=== PATIENT | male | born 1950 | race Caucasian/White ===

== ENCOUNTER 2017-07-02 12:56 | Emergency (ER) | payer MEDICARE, MEDICAID | END 2017-07-02 14:33 | disposition home or self-care (01) | LOC: ERS 12:56 | DX: K40.20 Bilateral inguinal hernia, without obstruction or gangrene, not specified as recurrent (principal); I10 Essential (primary) hypertension; J44.9 Chronic obstructive pulmonary disease, unspecified; F17.210 Nicotine dependence, cigarettes, uncomplicated; Z79.899 Other long term (current) drug therapy | CPT/HCPCS: 99283 ==

== ENCOUNTER 2017-07-13 07:36 | Day surgery (SDC) | payer MEDICARE, MEDICAID ==
[2017-07-12 09:40] VITALS: BMI 19.3
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
[2017-07-13] MEDS ORDERED: Bupivacaine PF 0.5% 30 ML VIAL ONE (07:50)
[2017-07-13] MEDS ORDERED: Lidocaine 2% w/Epinephrine 1:200K 20 ML VIAL ONE (08:13)
[2017-07-13 08:31] LABS: #Basophils 0.1 thou/uL (0.0-0.2); #Eosinphils 0.5 thou/uL (0.0-0.7); #Lymphocytes 2.3 thou/uL (1.20-3.40); #Monocytes 1.1 thou/uL (0.11-0.59); #Neutrophils 4.3 thou/uL (1.40-6.50); %Basophils 0.9 % (0.0-1.0); %Eosinophils 5.9 % (0.0-10.0); %Lymphocytes 28.1 % (21.0-51.0); Hematocrit 45.3 % (42.0-52.0); Red Blood Cell (RBC) Count 4.63 mill/uL (4.70-6.10); White Blood Cell (WBC) Count 8.3 thou/uL (4.8-10.8)
[2017-07-13] MEDS ORDERED: Ketorolac Tromethamine 30 MG/ML VIAL ONE (08:35)
[2017-07-13 08:48] LABS: Anion Gap 9 mmol/L (10-20); BUN (Urea Nitrogen) 14 mg/dL (8.4-25.7); Calc. Creatinine Clearance 54 mL/min (70-130); Calcium 9.2 mg/dL (7.8-10.44); Carbon Dioxide 28 mmol/L (23-31); Chloride 106 mmol/L (98-107); Estimated GFR-MDRD 72
[2017-07-13] MEDS ORDERED: Fentanyl 100 MCG/2 ML VIAL ONE (09:17)
[2017-07-13] MEDS ORDERED: ePHEDrine/0.9% NaCl/PF SYRINGE 50 mg/10 ml ONE (09:51)
[2017-07-13] MEDS ORDERED: Propofol 200 MG/20 ML VIAL ONE (09:51)
[2017-07-13] MEDS ORDERED: Dexamethasone 20 MG/5 ML VIAL ONE (09:51)
[2017-07-13] MEDS ORDERED: Ondansetron HCl/PF 4 MG/2 ML Vial ONE (09:51)
--- NOTE | 2017-07-13 11:13 | OP ---
DATE OF OPERATION: 07/13/2017 PREOPERATIVE DIAGNOSIS: Right inguinal hernia, direct. POSTOPERATIVE DIAGNOSIS: Right inguinal hernia, direct. PROCEDURE: Right inguinal hernia repair with PHS mesh. ANESTHESIA: General. Local 0.5% Marcaine 30 mL, 2% Xylocaine with epinephrine, 30 mL. SURGEON: Dr. Magnus Scruggs PROCEDURE IN DETAIL: The patient was taken to the operating room where under general anesthesia, ab domen was clipped of hair, prepared with ChloraPrep, draped in routine fashion. Ioban was used. Lo becki anesthetic infiltrated into skin and subcutaneous tissue for ilioinguinal nerve block along the line of incision in the right groin, carried down through the skin and subcutaneous tissue. Externa l oblique incised in the direction of its fibers. External ring cord structures dissected free and surrounded with Chris drain. Cremasteric fibers taken down and indirect hernia sac was not presen t. A direct inguinal hernia noted. The attenuated fascia was circumscribed, opened preperitoneal s pace potentiated and underlay portion of the PHS extended mesh placed in the preperitoneal space ope jimi and onlay portion placed in the floor of canal placing the extended portion superiorly in the in guinal canal, a slit was made in the mesh laterally to the cylindrical connecting ring brought aroun d the cord structures creating a synthetic internal ring reapproximating the mesh laterally to Poupa rt's ligament with 0 Nurolon suture inferiorly, mesh approximated to Sharad's ligament with 0 Nurolo n suture. Good hemostasis noted. The Chris drain was removed and good hernia repair appreciated. External oblique closed with continuous suture of 3-0 Monocryl, Camper's fascia with 3-0 Monocryl, skin with subcutaneous suture of 4-0 Monocryl. Local anesthetic infiltrated in the space of the in guinal canal and space above and below Camper's fascia, infiltrated in the skin and subcutaneous tis avtar for postoperative pain control. DermaGlue applied. The patient tolerated the procedure well.
--- NOTE | 2017-07-16 15:57 | EKG ---
Test Reason : PREOP Blood Pressure : / mmHG Vent. Rate : 067 BPM Atrial Rate : 067 BPM P-R Int : 138 ms QRS Dur : 088 ms QT Int : 402 ms P-R-T Axes : 070 079 072 degrees QTc Int : 424 ms Normal sinus rhythm Normal ECG Confirmed by MICHELE NUÑEZ ([id number]) on 07/16/2017 3:57:05 PM Referred By: DANII Confirmed By:MICHELE NUÑEZ
== END 2017-07-13 12:25 | disposition home or self-care (01) ==
LOC: SDC 07:36
PROVIDERS: ATTEND Specialist
PROC: 0YU50JZ Supplement Right Inguinal Region with Synthetic Substitute, Open Approach (ICD-10-PCS; principal; 2017-07-13)
DX: K40.90 Unilateral inguinal hernia, without obstruction or gangrene, not specified as recurrent (principal); J44.9 Chronic obstructive pulmonary disease, unspecified; I10 Essential (primary) hypertension; F17.210 Nicotine dependence, cigarettes, uncomplicated; Z79.899 Other long term (current) drug therapy; Z90.5 Acquired absence of kidney
CPT/HCPCS: 49505; 80048; 85025; 93005; C1781; 36415; 93010; J0131; J1100; J1885; J2405; J2704; J3010; S0020

== ENCOUNTER 2017-10-31 13:18 | Outpatient (CLI) | payer MEDICARE, MEDICAID ==
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
== END 2017-10-31 13:19 | disposition home or self-care (01) ==
LOC: CT 13:18
PROVIDERS: ATTEND Internal Medicine
DX: R91.1 Solitary pulmonary nodule (principal)
CPT/HCPCS: 71250

== ENCOUNTER 2017-12-09 18:34 | Emergency (ER) | payer MEDICARE, MEDICAID | END 2017-12-09 21:43 | disposition home or self-care (01) | LOC: ERS 18:34 | DX: J44.1 Chronic obstructive pulmonary disease with (acute) exacerbation (principal); I10 Essential (primary) hypertension; F17.210 Nicotine dependence, cigarettes, uncomplicated; Z79.899 Other long term (current) drug therapy | CPT/HCPCS: 94640; 94760; J7620 ==

== ENCOUNTER 2017-12-27 08:30 | Inpatient (IN) | payer MEDICARE, MEDICAID ==
[2017-12-27] MEDS ORDERED: Acetaminophen 325 MG TAB PO PRN (09:36)
[2017-12-27] MEDS ORDERED: Bisacodyl 5 MG TAB PO PRN (09:36)
[2017-12-27] MEDS ORDERED: Acetaminophen 650 MG Suppository PR PRN (09:36)
[2017-12-27] MEDS ORDERED: cefTRIAXone\\ROCEPHIN 2 GM VIAL ONE (09:54)
[2017-12-27] MEDS ORDERED: Azithromycin 250 MG TAB ONE (09:55)
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
[2017-12-27] MEDS: Azithromycin 500 MG in Sodium Chloride 0.9% 250 ML 250 ML IVPB SCH (15:19)
[2017-12-27 15:25] VITALS: BMI 18.3
[2017-12-27] MEDS ORDERED: hydrALAZINE 20 MG/ML VIAL SLOW IVP PRN (15:50)
[2017-12-27] MEDS: Nicotine 14 MG PATCH TD SCH (21:06)
[2017-12-28 04:20] LABS: #Lymphocytes 0.9 thou/uL (1.20-3.40); #Monocytes 0.2 thou/uL (0.11-0.59); #Neutrophils 14.2 thou/uL (1.40-6.50); %Eosinophils 0.2 % (0.0-10.0); %Lymphocytes 6.1 % (21.0-51.0); %Monocytes 1.4 % (0.0-10.0); %Neutrophils 92.4 % (42.0-75.0); Hemoglobin 13.6 g/dL (14.0-18.0); Mean Corpuscular HGB CONC 33.2 g/dL (32.0-36.0); Mean Corpuscular Hemoglobin 32.1 pg (27.0-31.0); Mean Corpuscular Volume 96.7 fl (80.0-94.0); Mean Platelet Volume 8.2 fL (7.4-10.4); Platelet Count 332 thou/uL (130-400); Red Blood Cell (RBC) Count 4.22 mill/uL (4.70-6.10); White Blood Cell (WBC) Count 15.4 thou/uL (4.8-10.8)
[2017-12-28 04:23] LABS: Lactic Acid 2.1 mmol/L (0.5-2.2)
[2017-12-28 04:28] LABS: Anion Gap 13 mmol/L (10-20); BUN (Urea Nitrogen) 19 mg/dL (8.4-25.7); Calc. Creatinine Clearance 61 mL/min (70-130); Calcium 9.2 mg/dL (7.8-10.44); Carbon Dioxide 24 mmol/L (23-31); Chloride 106 mmol/L (98-107); Estimated GFR-MDRD 88; Glucose 158 mg/dL (80-115); Potassium 4.5 mmol/L (3.5-5.1); Sodium 138 mmol/L (136-145)
[2017-12-28] MEDS: Enoxaparin Sodium 40 MG/0.4 ML SYRINGE SC SCH (08:56)
[2017-12-28] MEDS: Aspirin 81 mg Enteric Coated Tablet PO SCH (08:56)
[2017-12-28] MEDS: Nicotine 14 MG PATCH TD SCH (08:57)
[2017-12-28] MEDS: Lisinopril 10 MG TAB PO SCH (08:58)
[2017-12-28] MEDS: Azithromycin 500 MG in Sodium Chloride 0.9% 250 ML 250 ML IVPB SCH (08:58)
[2017-12-28] MEDS ORDERED: Non-Formulary Item 1 EACH (Umeclidinium/Vilanterol [Anoro Ellipta 62.5/25 Mcg Inh] 1 PUFF INH SCH (09:00)
[2017-12-28] MEDS ORDERED: cefTRIAXone\\ROCEPHIN 1 GM in Sterile Water 10 ML SLOW IVP SCH (09:00)
--- NOTE | 2017-12-28 14:30 | PQF ---
CLINICAL DOCUMENTATION IMPROVEMENT CLARIFICATION FORM: ICD-10 Updated PLEASE DO AN ADDENDUM TO THE PROGRESS NOTE WITH ANY DOCUMENTATION UPDATES OR ADDITIONS AND CARRY THROUGH TO DC SUMMARY. THANK YOU. DATE: 12/28/17 ATTN : DR. SMITH Please exercise your independent, professional judgment in responding to the clarification form. Clinical indicators are provided on the bottom of this form for your review Please check appropriate box(es): [ ] Sepsis due to: (Pna, UTI, gangrenous gall bladder, etc.) Due to: [ ] Device (please specify) [ ] Implant [ ] Graft [ ] Infusion [ ] SIRS due to non-infectious process (please specify etiology) [ ] with organ dysfunction [ ] without organ dysfunction [ ] Severe sepsis with acute organ dysfunction of: (Examples: respiratory failure, encephalopathy, acute kidney failure, other) [ ] Septic Shock [ ] Localized infection without sepsis [ x ] Other diagnosis [ ] Unable to determine In addition, please specify: Present on Admission (POA): [ x ] Yes [ ] No [ ] Unable to determine For continuity of documentation, please document condition throughout progress notes and discharge summary. Thank You. CLINICAL INDICATORS - SIGNS / SYMPTOMS / LABS ER NOTE: "SEPSIS" WBC 15.4 PULSE 98 RR 23 RISKS: COPD TREATMENT: IV AZITHROMYCIN (ER-PRESENT) IV ROCEPHIN (ER-PRESENT) IV FLUIDS (ER) (This form is maintained as a part of the permanent medical record) 2014 [employer]. All Rights Reserved LORAINE [email or web address] Office: [phone] [facility]
[2017-12-28] MEDS ORDERED: Furosemide 20 MG/2 ML VIAL SLOW IVP SCH (15:00)
--- NOTE | 2017-12-28 15:04 | PDOC.PN ---
- Subjective Encounter Start Date: 12/28/17 Encounter Start Time: 14:45 Subjective: f/u acute hypoxic resp failure and COPD exacerbation on Omnicef, -: Zithromax and Prednisone. Feels better overall. Off O2 supplementation. - Objective Resuscitation Status: Resuscitation Status FULL:Full Resuscitation MAR Reviewed: Yes Vital Signs & Weight: Vital Signs (12 hours) Temp Pulse Resp BP BP BP BP 12/28/17 12:00 156/85 H 12/28/17 11:54 97.6 F 73 16 156/85 H 12/28/17 08:58 152/78 H 12/28/17 08:00 97.9 F 93 16 152/78 H 12/28/17 07:21 97.9 F 93 16 152/78 H 12/28/17 06:33 12/28/17 06:32 74 20 12/28/17 04:00 97.6 F 81 18 138/73 138/73 Pulse Ox 12/28/17 12:00 12/28/17 11:54 96 12/28/17 08:58 12/28/17 08:00 95 12/28/17 07:21 95 12/28/17 06:33 97 12/28/17 06:32 97 12/28/17 04:00 93 L Weight Admit Weight 113 lb 9.6 oz Weight 113 lb 9.6 oz I&O: 12/27/17 12/28/17 12/29/17 06:59 06:59 06:59 Intake Total 240 Balance 240 Result Diagrams: 12/28/17 03:31 12/28/17 03:31 Radiology Reviewed by me: Yes (PCXR - no acute process) Phys Exam - Physical Examination Constitutional: NAD HEENT: PERRLA, oral pharynx no lesions Neck: no JVD, supple coarse sounds bilat, exp wheezes Cardiovascular: RRR Gastrointestinal: soft, non-tender, no distention, positive bowel sounds Musculoskeletal: no edema, pulses present Neurological: normal sensation, moves all 4 limbs Psychiatric: A&O x 3 Skin: normal turgor, cap refill <2 seconds Dx/Plan (1) Acute respiratory failure with hypoxia Code(s): J96.01 - ACUTE RESPIRATORY FAILURE WITH HYPOXIA Status: Acute Comment: Continue pulmonary support with Duonebs, Prednisone and Omnicef, O2 prn (2) COPD exacerbation Code(s): J44.1 - CHRONIC OBSTRUCTIVE PULMONARY DISEASE W (ACUTE) EXACERBATION Status: Acute Comment: Improved with pulmonary support, Prednisone, Duonebs, Omnicef, tobacco cessation (3) Tobacco abuse Code(s): Z72.0 - TOBACCO USE Status: Chronic Comment: tobacco cessation resources (4) HTN (hypertension) Code(s): I10 - ESSENTIAL (PRIMARY) HYPERTENSION Status: Chronic Qualifiers: Hypertension type: essential hypertension Qualified Code(s): I10 - Essential (primary) hypertension Comment: Continue Lasix and Lisinopril, serial BP monitoring - Plan continue antibiotics, social media marketing analyst, respiratory therapy, out of bed/ambulate , DVT proph w/SCDs Stable overall -: Continue pulmonary support -: Tobacco cessation -: Continue Omnicef, Prednisone, Duonebs -: Likely home in am 12/29/17 * .
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
[2017-12-28] MEDS: Cefdinir 300 MG CAP PO SCH (20:37)
[2017-12-29] MEDS ORDERED: predniSONE 20 MG TAB PO SCH (08:00)
[2017-12-29] MEDS ORDERED: Furosemide 20 MG TAB PO SCH (09:00)
[2017-12-29] MEDS ORDERED: Azithromycin 250 MG TAB PO SCH (09:00)
[2017-12-29] MEDS: Aspirin 81 mg Enteric Coated Tablet PO SCH (09:52)
[2017-12-29] MEDS: Cefdinir 300 MG CAP PO SCH (09:52)
[2017-12-29] MEDS: Enoxaparin Sodium 40 MG/0.4 ML SYRINGE SC SCH (09:52)
[2017-12-29] MEDS: Lisinopril 10 MG TAB PO SCH (09:53)
[2017-12-29] MEDS: Nicotine 14 MG PATCH TD SCH (09:54)
[2017-12-29 11:18] VITALS: BP 153/83; TEMP 97.3
--- NOTE | 2017-12-29 14:14 | PRG ---
DATE OF SERVICE: 12/29/2017 SUBJECTIVE: This morning, he is better and he is ready to go home. OBJECTIVE: VITAL SIGNS: Blood pressure 159/69, sats are 98% on room air, temperature 98 and respirations 18. CHEST: Decreased breath sounds. No wheezing. CARDIAC: Normal S1 and S2. No gallops. ABDOMEN: Soft. No masses. IMPRESSION: Chronic obstructive pulmonary disease exacerbation and bronchitis. PLAN: He can be discharge home. He can follow up with Dr. Moon on an outpatient basis.
--- NOTE | 2017-12-29 15:10 | DIS ---
DATE OF ADMISSION: 12/27/2017 DATE OF DISCHARGE: 12/29/2017 ADMITTING DIAGNOSIS: Acute on chronic hypoxic respiratory failure. DISCHARGE DIAGNOSIS: Acute on chronic hypoxic respiratory failure. SECONDARY DIAGNOSES: 1. Acute on chronic obstructive pulmonary disease exacerbation. 2. Hypertension. 3. History of active smoker and tobacco use. CONSULTANTS: Pool Coordinator involved in the care is Dr. Moon. HISTORY OF PRESENT ILLNESS AND HOSPITAL COURSE: In brief, this is a 67-year-old white male with know n history of COPD and has been a chronic smoker, who was brought to the ER from [place] because of the worsening shortness of breath, not associated with orthopnea and no chest pain. He is having some productive yellow sputum with occasional streaks of blood. So, he was started on a BiPAP and Pu lmonary was consulted. The patient was started on high dose of Solu-Medrol at 125 mg and also starte d on oral antibiotics with Rocephin and azithromycin. The patient showed good improvement with the s teroids and antibiotics. He was transferred to the floor and was slowly improving. The patient was counseled to quit smoking, which has triggered this COPD attack. The patient showed good improvement with the nebulizer treatments, he just uses an inhaler at home. So, the patient is discharged in st able condition once his wheezing was resolved. The patient was seen by Dr. Bautista on the day of discha [facility] and suggested to follow up with him in 2 to 3 weeks. The patient was discharged home in stable c ondition. PHYSICAL EXAMINATION: On the day of discharge: VITAL SIGNS: Blood pressures are 153/83, heart rate 73, respirations 14, saturation 98% on room air. GENERAL: The patient is moderately built, moderately nourished, does not appear to be in any acute d istress. CARDIOVASCULAR: S1, S2 normal. No murmurs, rubs or gallops. LUNGS: Bilateral air entry was equal. No wheezing, no crackles. ABDOMEN: Soft, nontender, no guarding, no rebound tenderness. MUSCULOSKELETAL: No calf tenderness. No pedal edema, no joint tenderness, no joint swelling. DISCHARGE MEDICATIONS: HOME MEDICATIONS: 1. Albuterol inhaler 1 puff inhalation as needed. 2. Fluticasone 1 puff inhalation daily 200 mcg inhaler. 3. Aspirin 81 mg daily. 4. Lisinopril 10 mg daily. 5. Ellipta 62.5/25 mcg inhalation 1 puff inhalation daily. NEW MEDICATIONS: 1. Azithromycin 250 mg p.o. daily, continue for 4 more days. 2. Omnicef 300 mg p.o. daily, continue for 4 more days. 3. DuoNebs nebulizer was given, advised to use every 6 hours. 4. Prednisone 20 mg tapering dose was given for 8 days. DISCHARGE INSTRUCTIONS: 1. Continue activity as tolerated. Advised to quit smoking. 2. Diet: Continue with general heart-healthy diet. 3. Activity: As tolerated. 4. Followup: Advised to follow up with Dr. Bautista in 2 to 3 weeks. I spent 35 minutes with this patient.
== END 2017-12-29 11:18 | disposition home or self-care (01) | DRG 189 ==
LOC: ERS 08:30 → T4-B 09:34
PROVIDERS: ADMIT Internal Medicine; ATTEND Internal Medicine
DX: J96.21 Acute and chronic respiratory failure with hypoxia (principal); E87.2 Acidosis; J44.1 Chronic obstructive pulmonary disease with (acute) exacerbation; I10 Essential (primary) hypertension; F17.210 Nicotine dependence, cigarettes, uncomplicated; I16.0 Hypertensive urgency
CPT/HCPCS: 36415; 80048; 83605; 85025; 94640; 96365; 96366; 96367; A4216; J0360; J0456; J0696; J1650; J1940; J2920; J7050; J7506; J7620

== ENCOUNTER 2018-07-08 20:45 | Observation (INO) | payer MEDICARE, MEDICAID ==
[2018-07-08] MEDS ORDERED: Piperacillin/Tazobactam 3.375 GM VIAL ONE (21:19)
[2018-07-08] MEDS ORDERED: Ondansetron HCl/PF 4 MG/2 ML Vial IVP PRN (22:29)
[2018-07-08] MEDS ORDERED: Ondansetron ODT 4 MG TAB SL PRN (22:29)
[2018-07-08] MEDS: Lactated Ringer's 1,000 ML IV SCH (23:50)
[2018-07-09] MEDS: Piperacillin/Tazobactam 3.375 GM in Sodium Chloride 0.9% 100 ML IVPB SCH ×2 (04:00→08:57)
[2018-07-09] MEDS: Lactated Ringer's 1,000 ML IV SCH (08:57)
[2018-07-09] MEDS ORDERED: hydrALAZINE 20 MG/ML VIAL SLOW IVP PRN (09:52)
[2018-07-09] MEDS ORDERED: Ondansetron ODT 8 MG TAB SL PRN (09:54)
[2018-07-09] MEDS ORDERED: Acetaminophen 1,000 MG in Premix Bag 1 BAG IVPB PRN (09:54)
[2018-07-09] MEDS ORDERED: Ondansetron HCl/PF 4 MG/2 ML Vial IVP PRN ×2 (09:54→13:37)
[2018-07-09] MEDS ORDERED: Ketorolac Tromethamine 30 MG/ML VIAL IVP PRN (09:54)
[2018-07-09] MEDS ORDERED: Lactated Ringer's 1,000 ML IV SCH (10:00)
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
[2018-07-09] MEDS ORDERED: Fentanyl 100 MCG/2 ML VIAL ONE (11:16)
[2018-07-09] MEDS ORDERED: Bupivacaine HCl 0.5%/Epinephrine 1:200,000/PF 30 ml Vial ONE (11:42)
[2018-07-09] MEDS ORDERED: traMADol HCl 50 MG TAB PO PRN ×2 (13:15)
[2018-07-09] MEDS ORDERED: Acetaminophen 500 MG TAB PO PRN (13:15)
[2018-07-09] MEDS ORDERED: Promethazine HCl 25 MG/ML VIAL IM PRN (13:37)
[2018-07-09] MEDS ORDERED: Promethazine HCl 25 MG/ML VIAL SLOW IVP PRN (13:37)
[2018-07-09 14:26] VITALS: BP 133/75; TEMP 97.6
[2018-07-09] MEDS ORDERED: Piperacillin/Tazobactam 3.375 GM in Sodium Chloride 0.9% 100 ML IVPB SCH (15:00)
[2018-07-09] MEDS ORDERED: Dexamethasone 20 MG/5 ML VIAL ONE (16:27)
[2018-07-09] MEDS ORDERED: Lidocaine 1% PF 5 ML VIAL ONE (16:27)
[2018-07-09] MEDS ORDERED: Ketorolac Tromethamine 30 MG/ML VIAL ONE (16:27)
[2018-07-09] MEDS ORDERED: Succinylcholine Chloride 20 MG/ML 10 ml SYRINGE FS ONE (16:27)
[2018-07-09] MEDS ORDERED: Ondansetron HCl/PF 4 MG/2 ML Vial ONE (16:27)
[2018-07-09] MEDS ORDERED: PROPOFOL 200 MG/20 ML VIAL ONE (16:27)
--- NOTE | 2018-07-09 18:55 | OP ---
DATE OF PROCEDURE: 07/09/2018 PREOPERATIVE DIAGNOSIS: Acute appendicitis. POSTOPERATIVE DIAGNOSIS: Acute appendicitis. PROCEDURE: Laparoscopic video appendectomy. SURGEON: Magnus Scruggs M.D. ANESTHESIA: General. Local 0.5% Marcaine with epinephrine. Adhesions from prior surgery. PROCEDURE: The patient was taken to the operating room where under general anesthesia, abdomen was p repared with ChloraPrep, draped in routine fashion. Local anesthetic infiltrated into the skin and s ubcutaneous tissue about each port site. Right lateral subcostal incision made and pneumoperitoneum to 15 mmHg obtained with the Veress needle and using a laparoscope view port, I inserted 5 mm port, b ut was uncertain about this location. Thus, the left lateral subcostal incision made and a 5-port pl aced. I was able to enter the abdominal cavity and viewed this laparoscopically. Suprapubic area wa s free of adhesions. Thus, an incision was made and a 12-port placed. The right subcostal port was directed more caudally and I was able to enter abdominal cavity through an adhesion free area. Appen koko was identified and inflamed. Mesoappendix taken down with the LigaSure. Stump of the appendix d ivided with Endo-MILES blue load stapler. The stapled cecal stump was hemostatic and secure as the yan endix removed and submitted to Pathology. Good hemostasis assured. Irrigant and pneumoperitoneum ev acuated. All instruments removed, and all skin incisions approximated with subdermal 4-0 Monocryl an d DermaGlue applied. Suprapubic fascia approximated with 0 Vicryl.
[2018-07-09] MEDS ORDERED: Enoxaparin Sodium 40 MG/0.4 ML SYRINGE SC SCH (21:00)
--- NOTE | 2018-07-09 23:09 | DIS ---
DATE OF ADMISSION: 07/08/2018 DATE OF DISCHARGE: 07/09/2018 DISCHARGE DIAGNOSES: 1. Acute appendicitis. 2. Cholelithiasis, asymptomatic. 3. Left subclavian artery stenosis with claudication. 4. Chronic obstructive pulmonary disease. 5. Ongoing tobacco abuse. 6. Hypertension. PROCEDURES: Laparoscopic video appendectomy. No adhesions present from prior surgery, but able to a pproach adhesion free area. Right subcostal area has more adhesions than the left. HISTORY: A 68-year-old male with history of appendicitis, confirmed by CAT scan. Discussion held re garding his gallstones that had been present for several years, seen on previous CAT scans and these are asymptomatic and these were left alone. He received intravenous fluids and antibiotics, underwen t laparoscopic video appendectomy and discharged home. Ultram p.r.n. pain. Resume home medications. Diet and activity as tolerated. Follow up in my office in 2-3 weeks. PLAN: Referral to [facility] Surgery for consideration for intervention due to his left subclavian artery st enosis. He has nonpalpable pulses .
== END 2018-07-09 16:40 | disposition home or self-care (01) ==
LOC: ERS 20:45 → SURG B 21:15
PROVIDERS: ADMIT Specialist; ATTEND Specialist
PROC: 0DTJ4ZZ Resection of Appendix, Percutaneous Endoscopic Approach (ICD-10-PCS; principal; 2018-07-08)
DX: K35.80 Unspecified acute appendicitis (principal); K80.20 Calculus of gallbladder without cholecystitis without obstruction; I70.8 Atherosclerosis of other arteries; I70.218 Atherosclerosis of native arteries of extremities with intermittent claudication, other extremity; I10 Essential (primary) hypertension; J44.9 Chronic obstructive pulmonary disease, unspecified; F17.210 Nicotine dependence, cigarettes, uncomplicated; Z79.82 Long term (current) use of aspirin; Z79.899 Other long term (current) drug therapy; Z90.49 Acquired absence of other specified parts of digestive tract; Z90.5 Acquired absence of kidney
CPT/HCPCS: 44970; 88304; 96361; 96365; 96366; 97139; 99285; G0378; J0670; J1100; J1885; J2001; J2405; J2543; J2704; J3010; J7050

== ENCOUNTER 2018-12-24 13:00 | Outpatient (CLI) | payer MEDICARE, MEDICAID ==
--- NOTE | 2018-12-24 14:37 | ULT ---
ULTRASOUND TESTICULAR WITH DOPPLER: HISTORY: Hydrocele. COMPARISON: None. FINDINGS: Real-time, ward scale, and color evaluation of the testicles was performed. Testicular echotexture is normal bilaterally. Small right-side testicular cyst. Adequate vascular f low to both testicles. Large right hydrocele. The right testicle measures 3.1 x 4.5 x 3.2 cm and the left testicle measures 3.9 x 3 x 2.1 cm. IMPRESSION: Large right hydrocele. No underlying mass. POS: C
== END 2018-12-24 13:01 | disposition home or self-care (01) ==
LOC: BICULT 13:00
PROVIDERS: ATTEND Specialist
DX: N43.3 Hydrocele, unspecified (principal)
CPT/HCPCS: 76870; 93976

== ENCOUNTER 2019-05-07 10:45 | Outpatient (CLI) | payer MEDICARE, MEDICAID ==
--- NOTE | 2019-05-07 11:41 | RAD ---
TWO VIEW CHEST: HISTORY: Dyspnea. COMPARISON: 02/26/2017. FINDINGS: Mild hyperexpansion with flattened diaphragms. Lung santnaa are clear. Vascular markings normal. He art and mediastinum unremarkable. Osseous structures unremarkable. IMPRESSION: Mild hyperexpansion. No acute process. POS: [facility]
== END 2019-05-07 10:46 | disposition home or self-care (01) ==
LOC: RAD 10:45
PROVIDERS: ATTEND Internal Medicine
DX: R06.00 Dyspnea, unspecified (principal); R91.8 Other nonspecific abnormal finding of lung field
CPT/HCPCS: 71046

== ENCOUNTER 2019-05-21 06:39 | Outpatient (CLI) | payer MEDICARE, MEDICAID ==
[2019-05-21 10:44] LABS: Bacteria/HPF None Seen HPF (None Seen); Bilirubin Negative (Negative); Blood, Urine Negative (Negative); Clarity Clear (Clear); Glucose, Urine (Dipstick) Normal (Negative); Leukocyte Negative Leu/uL (Negative); Mucous/LPF Rare LPF (<2+); Nitrite Negative (Negative); Protein, Urine (Dipstick) 20 mg/dL (Neg-Trace); RBC/HPF 0-3 HPF (0-3); Squamous Epithelial None Seen HPF (0-3); Urobilinogen Normal mg/dL (Less than 2); WBC/HPF 0-3 HPF (0-3)
[2019-05-21 10:46] LABS: Hemoglobin 14.8 g/dL (14.0-18.0); Mean Corpuscular HGB CONC 33.9 g/dL (32.0-36.0); Mean Corpuscular Hemoglobin 32.8 pg (27.0-31.0); Mean Corpuscular Volume 96.7 fL (78.0-98.0); Mean Platelet Volume 8.2 fL (7.4-10.4); Platelet Count 293 thou/uL (130-400); RBC Distribution Width 13.7 % (11.5-14.5); Red Blood Cell (RBC) Count 4.53 mill/uL (4.70-6.10); White Blood Cell (WBC) Count 8.2 thou/uL (4.8-10.8)
[2019-05-21 11:09] LABS: Anion Gap 14 mmol/L (10-20); BUN (Urea Nitrogen) 14 mg/dL (8.4-25.7); Calc. Creatinine Clearance 0 mL/min (70-130); Calcium 9.6 mg/dL (7.8-10.44); Carbon Dioxide 27 mmol/L (23-31); Chloride 103 mmol/L (98-107); Estimated GFR-MDRD 69; Glucose 88 mg/dL (80-115); Potassium 5.1 mmol/L (3.5-5.1); Sodium 139 mmol/L (136-145)
[2019-05-21 11:14] LABS: INR-International Normal Ratio 0.9
[2019-05-21 11:15] LABS: PTT 26.7 SEC (22.9-36.1)
== END 2019-05-21 06:40 | disposition home or self-care (01) ==
LOC: LABBT 06:39
PROVIDERS: ATTEND Urology
DX: Z01.818 Encounter for other preprocedural examination (principal); N43.3 Hydrocele, unspecified; J44.9 Chronic obstructive pulmonary disease, unspecified
CPT/HCPCS: 80048; 81001; 85027; 85610; 85730; 87086; 93005; 93010

== ENCOUNTER 2019-05-29 13:10 | Day surgery (SDC) | payer MEDICAID, MEDICARE ==
[2019-05-21 09:46] VITALS: BMI 18.6
[~2019-05-29 13:10] MED LIST: Dexamethasone 20 MG/5 ML VIAL ONE; Glycopyrrolate 0.2 MG/ML 5 ML SYRINGE ONE; Lidocaine 1% PF 5 ML VIAL ONE; Ondansetron PF 4 MG/2 ML Vial ONE; PHENYLEPHRINE-NS 100 MCG/ML 10 ML SYRINGE ONE; PROPOFOL 200 MG/20 ML VIAL ONE; PROVENTIL INHALER 6.7 G (200 INHALATIONS) ONE; ePHEDrine 50 MG/ML VIAL ONE
[2019-05-29] MEDS ORDERED: Fentanyl 100 MCG/2 ML VIAL ONE (13:52)
[2019-05-29] MEDS ORDERED: Bupivacaine/Epinephrine 0.25% 30 ML VIAL ONE (13:55)
[2019-05-29] MEDS ORDERED: Midazolam HCl 2 mg/2 ml Vial ONE (14:01)
[2019-05-29] MEDS ORDERED: Sodium Chloride 0.9% 100 ML ONE (14:07)
[2019-05-29] MEDS ORDERED: CEFAZOLIN 1 GM VIAL ONE (14:07)
[2019-05-29] MEDS ORDERED: Bupivacaine 0.25% HCL 30 ML VIAL ONE (14:25)
--- NOTE | 2019-05-29 21:58 | OP ---
DATE OF PROCEDURE: 05/29/2019 SERVICE: Urology. PREOPERATIVE DIAGNOSIS: Right hydrocele. POSTOPERATIVE DIAGNOSIS: Right hydrocele. PROCEDURE PERFORMED: Right hydrocelectomy in a Jaboulay fashion. INDICATIONS FOR PROCEDURE: Mr. Jacobsen is a 69-year-old white male with COPD and a right hydrocele which is symptomatic, painful, and bothersome. He has requested a right hydrocelectomy. He has received pulmonary clearance from his clipman. We discussed the procedure with risks and benefits, and he has agreed to proceed forward. DESCRIPTION OF PROCEDURE: After identification of armband and verification of consent, the patient was brought back to the operating room, where he underwent general anesthesia with an LMA. He was then left in a supine position and prepped and draped in usual sterile fashion. After appropriate time-out, a horizontal incision was made over the right hemiscrotum towards the inferior aspect over the hydrocele. Using a 15 blade, dissection was carried down with Metzenbaum scissors and Bovie electrocautery until the tunica vaginalis was identified. The space between the internal spermatic fascia and tunica vaginalis was bluntly with some sharp dissection until the hydrocele could be delivered outside of the scrotum. The remaining tissues were swept aside gently until the entire hydrocele was identified. There was no tunneling or continuity with the spermatic cord or into the inguinal canal or peritoneum. There was a relatively large vessel that could be off the hydrocele sac which was ligated and then divided using Bovie electrocautery. Ligation was performed with a 4-0 Vicryl. An incision was made on the anterior aspect of the hydrocele sac using a 15 blade with release of approximately 500 mL of straw-colored fluid. The hydrocele sac was then completely opened. The testicle appeared normal. There was a small appendix testis which was removed. There was also a hydrocele marina inside which was discarded. The vas deferens and epididymis were rather far away from the actual testicle. The vas deferens and epididymis were identified throughout their course until it connected back into the rete testis. Just lateral to this, the markings were made using the electrocautery pencil to excise the redundant tunica vaginalis. This was then excised Bovie electrocautery taking care to cauterize any perforating vessels. The hydrocele sac was then submitted for routine pathologic evaluation. The hydrocele sac was then everted and marsupialized using a 3-0 Vicryl in a running fashion taking care not to over-tighten the hydrocele sac or ligate the vas deferens. Upon completion, the testis appeared normal and viable and healthy. There was no apparent bleeding. A few small bleeders on the scrotal wall side were cauterized and a small incision was made on the inferior aspect of the scrotum using the cutting current on the Bovie pencil. Hemostat was used to guide in a [place] drain, which was loosely secured on the inside of the scrotum using a 4-0 Vicryl to a small amount of the spermatic fascia and then a 3-0 nylon used to secure the drain on the outside. The testicle was irrigated along with the scrotal contents and all the fluid evacuated. A cord block was performed with 0.25% Marcaine plain along the spermatic cord. Then the testicle was re-deposited back into the scrotum. The dartos and external spermatic fascias were closed using a 2-0 Vicryl in a running fashion. The skin closed with a 4-0 Monocryl in a running fashion. The skin was injected with 0.25% Marcaine plain as well. Dermabond was applied and once dried, scrotal fluffs applied over the drain sites and jockstrap applied. The patient was then awakened, taken to PACU for recovery in stable condition. COMPLICATIONS: None. ESTIMATED BLOOD LOSS: Minimal. RETAINED TUBES AND DRAINS: A quarter-inch Chris drain. SPECIMENS: Hydrocele sac. DISPOSITION: The patient will be discharged home and follow up with me in 1 week for drain removal. Job ID: [id number]
== END 2019-05-29 16:58 | disposition home or self-care (01) ==
LOC: SDC 13:10
PROVIDERS: ATTEND Urology
PROC: 0VB60ZZ Excision of Right Tunica Vaginalis, Open Approach (ICD-10-PCS; principal; 2019-05-29)
DX: N43.3 Hydrocele, unspecified (principal); J44.9 Chronic obstructive pulmonary disease, unspecified; I10 Essential (primary) hypertension; F17.290 Nicotine dependence, other tobacco product, uncomplicated; Z79.899 Other long term (current) drug therapy
CPT/HCPCS: 88302; J0690; J2250; J3010; J3490; S0020

== ENCOUNTER 2019-12-11 14:36 | Outpatient (CLI) | payer MEDICARE, MEDICAID ==
--- NOTE | 2019-12-11 15:14 | RAD ---
PA AND LATERAL CHEST: HISTORY: Dyspnea. COMPARISON: 05/07/2019 study. FINDINGS: Heart size and mediastinum within normal limits. COPD change is again noted, stable. No new process . IMPRESSION: Stable chronic obstructive pulmonary disease changes. POS: [facility]
== END 2019-12-11 14:37 | disposition home or self-care (01) ==
LOC: RAD 14:36
PROVIDERS: ATTEND Internal Medicine
DX: R06.00 Dyspnea, unspecified (principal); J44.9 Chronic obstructive pulmonary disease, unspecified
CPT/HCPCS: 71046

== ENCOUNTER 2020-09-15 16:38 | Inpatient (IN) | payer MEDICARE, MEDICAID ==
[~2020-09-15 16:38] MED LIST changes: -Dexamethasone 20 MG/5 ML VIAL ONE; -Glycopyrrolate 0.2 MG/ML 5 ML SYRINGE ONE; +Iopamidol-370 76% 500 ML 1 ML ONE; -Lidocaine 1% PF 5 ML VIAL ONE; -Ondansetron PF 4 MG/2 ML Vial ONE; -PHENYLEPHRINE-NS 100 MCG/ML 10 ML SYRINGE ONE; -PROPOFOL 200 MG/20 ML VIAL ONE; -PROVENTIL INHALER 6.7 G (200 INHALATIONS) ONE; -ePHEDrine 50 MG/ML VIAL ONE
[2020-09-15] MEDS ORDERED: Aspirin Chewable 81 MG TAB ONE (17:29)
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
[2020-09-15 18:41] LABS: CKMB 7.7 ng/mL (0-6.6)
[2020-09-15] MEDS ORDERED: Enoxaparin Sodium 60 MG/0.6 ML SYRINGE ONE (19:05)
[2020-09-15] MEDS ORDERED: Nitroglycerin 0.4 MG TAB (25 Tab Bottle) SL PRN (20:46)
--- NOTE | 2020-09-15 20:47 | PDOC.HHP ---
Hospitalist HPI - History of Present Illness Shortness of breath History of Present Illness: This is a 70-year-old male patient with a history of anxiety, COPD who was transferred from [place] on account of NSTEMI. He was initially seen there for COPD exacerbation however his troponins became elevatedtransfer him here for further evaluation. Of note patient was discharged about 3 months ago when he was seen here for COPD exacerbation requiring BiPAP. He notes having been at home when he suddenly started feeling shortness of breath. He tried nebulization which was unsuccessfulleading to go to [place]. He also took some Ativan for anxiety with no improvement. At presentation in [place] he was given breathing treatments ceftriaxone, duo nebs and Solu-Medrol with improvement in his symptoms. His initial troponin was 0.1 however repeat in two 0.4 transfer sent here for concerns for ACS. At [place] his WBC was 12.8, hemoglobin 14.9 and platelets 321. Bicarb was 21, creatinine 1.33 from a baseline of 1.[address] scan showed severe emphysema with no evidence of pulmonary embolism. A1c was 5.112 months ago. At the time of my evaluation he was generally comfortable walking around. He denied any chest pain shortness of breath or cough. Most of the symptoms had resolved. He denies abdominal pain diarrhea complains of hunger. When he presented here his blood pressure was 112/67, pulse 82, respiratory 26 saturating 97% on room air. He was afebrile at 98.5. Repeat troponin was 0.46, He does have a strong family of ACS among all his siblings and father. He is an ongoing smoker, has hyperlipidemia and hypertension. Hospitalist ROS - Review of Systems Constitutional: denies: fever, chills, sweats, weakness Respiratory: reports: cough, shortness of breath. denies: hemoptysis, SOB with excertion Cardiovascular: denies: chest pain, palpitations, orthopnea, paroxysmal noc. dyspnea Gastrointestinal: denies: nausea, vomiting, abdominal pain Genitourinary: denies: dysuria, frequency, incontinence Neurological: denies: weakness, numbness, incoordination Hospitalist History - Past Medical History Other Medical History: Anxiety, hypertension, COPD - Past Surgical History Other Surgical History: Appendectomy - Family History Other Family History: Carotid artery disease - Social History Smoking Status: Current every day smoker Alcohol: reports: Occassional Drugs: reports: none Activity level: independent ambulation - Exam General Appearance: awake alert General - other findings: Slender looking Eye: PERRL, anicteric sclera ENT: normocephalic atraumatic, no oropharyngeal lesions Neck: supple, symmetric, no JVD, no thyromegaly Heart: RRR, no murmur, no gallops, no rubs, normal peripheral pulses Respiratory - other findings: Reduced air entry bilaterally, no wheezes or rhonchi heard. Gastrointestinal: soft, non-tender, non-distended, normal bowel sounds Extremities: no cyanosis, no clubbing, no edema Neurological: cranial nerve grossly intact, no weakness, no new deficit Psychiatric: normal affect, normal behavior, A&O x 3 Hospitalist Results - Labs Result Diagrams: 09/16/20 04:28 09/16/20 04:28 Lab results: CK-MB (CK-2) 7.7 ng/mL (0-6.6) H* 09/15/20 17:22 Troponin I 0.460 ng/mL (< 0.028) H* 09/15/20 17:22 Hospitalist H&P A/P - Plan Plan: This is a 70-year-old male patient with a history of hypertension, COPD who was transferred from [place] due to concerns of NSTEMI . He was initially seen there and managed for COPD exacerbation. NSTEMI Troponin from 0.1-0.4 This could be demand from COPD exacerbation Given his history of hypertension smoking and strong family history of coronary disease concerns for ACS. He has not got ongoing chest pain however. We will continue aspirin and Lovenox Monitor telemetry As needed nitroglycerin if needed Cardiac consult in a.m. COPD exacerbation Symptoms mostly resolved We will still continue duo nebs Prednisone, azithromycin Tobacco abuse Ongoing smoker Advised on stopping. Hypertension Blood pressure stable Continue monitor Resume home meds once verified. Anxiety Currently stable Resume home meds once verified VT prophylaxistherapeutic Lovenox CODE STATUSfull code
[2020-09-15] MEDS: Azithromycin 500 MG in Sodium Chloride 0.9% 250 ML 250 ML IVPB SCH (21:56)
[2020-09-16 01:30] VITALS: BMI 16.0
[2020-09-16 04:56] LABS: #Eosinphils 0.2 thou/uL (0.0-0.7); #Lymphocytes 0.8 thou/uL (1.20-3.40); #Monocytes 1.3 thou/uL (0.11-0.59); #Neutrophils 8.6 thou/uL (1.40-6.50); %Basophils 0.2 % (0.0-1.0); %Eosinophils 1.5 % (0.0-10.0); %Lymphocytes 7.4 % (21.0-51.0); %Monocytes 11.9 % (0.0-10.0); Hemoglobin 12.7 g/dL (14.0-18.0); Mean Corpuscular HGB CONC 32.8 g/dL (32.0-36.0); Mean Corpuscular Hemoglobin 32.5 pg (27.0-31.0); Mean Corpuscular Volume 99.3 fL (78.0-98.0); Mean Platelet Volume 8.1 fL (7.4-10.4); Platelet Count 320 thou/uL (130-400); RBC Distribution Width 13.7 % (11.5-14.5); Red Blood Cell (RBC) Count 3.92 mill/uL (4.70-6.10); White Blood Cell (WBC) Count 10.9 thou/uL (4.8-10.8)
[2020-09-16 05:21] LABS: Anion Gap 13 mmol/L (10-20); BUN (Urea Nitrogen) 26 mg/dL (8.4-25.7); Calc. Creatinine Clearance 40 mL/min (70-130); Calcium 8.9 mg/dL (7.8-10.44); Carbon Dioxide 21 mmol/L (23-31); Chloride 108 mmol/L (98-107); Glucose 79 mg/dL (80-115); Potassium 4.4 mmol/L (3.5-5.1); Sodium 138 mmol/L (136-145)
[2020-09-16] MEDS: Aspirin 81 mg Enteric Coated Tablet PO SCH (08:48)
[2020-09-16] MEDS: predniSONE 20 MG TAB PO SCH (08:48)
[2020-09-16] MEDS ORDERED: Metoprolol Tartrate 25 MG TAB PO SCH (09:00)
[2020-09-16] MEDS ORDERED: Enoxaparin Sodium 60 MG/0.6 ML SYRINGE SC SCH ×2 (09:00)
--- NOTE | 2020-09-16 09:22 | PDOC.HOSPP ---
- Subjective Encounter Date: 09/16/20 Subjective: The patient denies chest pain or shortness of breath. He is still complaining of his chronic productive cough. - Objective Vital Signs & Weight: Vital Signs (12 hours) Temp Pulse Resp BP Pulse Ox 09/16/20 07:51 97.8 F 76 18 123/56 L 97 09/16/20 04:20 97.6 F 78 18 148/77 H 97 09/16/20 00:42 78 14 96 09/15/20 21:40 98 Weight Weight 99 lb 8 oz I&O: 09/15/20 09/16/20 09/17/20 06:59 06:59 06:59 Intake Total 400 Output Total 175 Balance 225 Result Diagrams: 09/16/20 04:28 09/16/20 04:28 Hospitalist ROS - Medication Medications: Active Medications Generic Name Dose Route Start Last Admin Trade Name Freq PRN Reason Stop Dose Admin Albuterol/Ipratropium 3 ml 09/16/20 01:00 09/16/20 07:03 Ipratropium/Albuterol Sulfate 3 Ml Neb NEB Not Given [id number] BUSHRA Aspirin 81 mg 09/16/20 09:00 09/16/20 08:48 Aspirin 81 Mg Enteric Coated Tablet PO 81 mg DAILY BUSHRA Administration Azithromycin 500 mg/ Sodium 250 mls @ 250 mls/hr 09/15/20 21:00 09/15/20 21:56 Chloride IVPB 250 mls Q24HR BUSHRA Administration Prednisone 40 mg 09/16/20 09:00 09/16/20 08:48 Prednisone 20 Mg Tab PO 40 mg DAILY BUSHRA Administration - Exam General Appearance: awake alert ENT: normocephalic atraumatic Neck: supple, no JVD Respiratory: normal chest expansion, no tachypnea Gastrointestinal: soft Extremities: no cyanosis, no clubbing Hosp A/P (1) Elevated troponin I level Code(s): R77.8 - OTHER SPECIFIED ABNORMALITIES OF PLASMA PROTEINS Status: Acute (2) COPD exacerbation Code(s): J44.1 - CHRONIC OBSTRUCTIVE PULMONARY DISEASE W (ACUTE) EXACERBATION Status: Acute (3) HTN (hypertension) Code(s): I10 - ESSENTIAL (PRIMARY) HYPERTENSION Status: Chronic Qualifiers: Hypertension type: essential hypertension Qualified Code(s): I10 - Essential (primary) hypertension (4) Tobacco abuse Code(s): Z72.0 - TOBACCO USE Status: Chronic - Plan COPD exacerbation has mostly resolved. The patient is saturating well on room air and he does not appear to be in any respiratory distress. Continue albuterol, prednisone, and azithromycin. Repeat troponin is trending up. Continue aspirin, atorvastatin, Lovenox, and add metoprolol. Cardiology consulted. Patient is n.p.o.
[2020-09-16 09:30] LABS: Troponin I 0.197 ng/mL (< 0.028)
[2020-09-16 09:51] LABS: SARS-CoV-2 MS2 Positive; SARS-CoV-2 N Gene Negative; SARS-CoV-2 S Gene Negative; SARS-CoV-2 by NAA Not Detected (NotDetected); SARS-CoV-2 orf1ab Negative
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
[2020-09-16] MEDS: Nicotine 14 MG PATCH TD SCH (17:05)
[2020-09-16] MEDS: Atorvastatin Calcium 40 MG TAB PO SCH (21:36)
[2020-09-16] MEDS: Azithromycin 500 MG in Sodium Chloride 0.9% 250 ML 250 ML IVPB SCH (21:36)
[2020-09-17 04:42] LABS: Hemoglobin 11.9 g/dL (14.0-18.0); Platelet Count 311 thou/uL (130-400)
[2020-09-17] MEDS: Aspirin 81 mg Enteric Coated Tablet PO SCH (08:13)
[2020-09-17] MEDS: Enoxaparin Sodium 60 MG/0.6 ML SYRINGE SC SCH (08:13)
[2020-09-17] MEDS: predniSONE 20 MG TAB PO SCH (08:13)
--- NOTE | 2020-09-17 12:58 | PDOC.HOSPP ---
- Objective Vital Signs & Weight: Vital Signs (12 hours) Temp Pulse Resp BP Pulse Ox 09/17/20 12:38 98.5 F 61 16 134/68 98 09/17/20 08:02 97.8 F 75 16 132/64 98 09/17/20 07:13 81 12 09/17/20 04:28 97.8 F 78 17 94/54 L 99 Weight Admit Weight 99 lb 8 oz Weight 99 lb 8 oz I&O: 09/16/20 09/17/20 09/18/20 06:59 06:59 06:59 Intake Total 400 800 Output Total 175 150 Balance 225 650 Result Diagrams: 09/17/20 03:58 09/17/20 03:58 Hospitalist ROS - Medication Medications: Active Medications Generic Name Dose Route Start Last Admin Trade Name Freq PRN Reason Stop Dose Admin Albuterol/Ipratropium 3 ml 09/16/20 01:00 09/17/20 07:13 Ipratropium/Albuterol Sulfate 3 Ml Neb NEB 3 ml [id number] BUSHRA Administration Aspirin 81 mg 09/16/20 09:00 09/17/20 08:13 Aspirin 81 Mg Enteric Coated Tablet PO 81 mg DAILY BUSHRA Administration Atorvastatin Calcium 40 mg 09/16/20 21:00 09/16/20 21:36 Atorvastatin Calcium 40 Mg Tab PO 40 mg HS BUSHRA Administration Enoxaparin Sodium 45 mg 09/17/20 09:00 09/17/20 08:13 Enoxaparin Sodium 60 Mg/0.6 Ml Syringe SC 45 mg 0900 BUSHRA Administration Azithromycin 500 mg/ Sodium 250 mls @ 250 mls/hr 09/15/20 21:00 09/16/20 21:36 Chloride IVPB 250 mls Q24HR BUSHRA Administration Nicotine 14 mg 09/16/20 16:00 09/16/20 17:05 Nicotine 14 Mg Patch TD 14 mg Q24HR BUSHRA Administration Prednisone 40 mg 09/16/20 09:00 09/17/20 08:13 Prednisone 20 Mg Tab PO 40 mg DAILY BUSHRA Administration Hosp A/P - Plan ) Elevated troponin I level Code(s): R77.8 - OTHER SPECIFIED ABNORMALITIES OF PLASMA PROTEINS Status: Acute (2) COPD exacerbation Code(s): J44.1 - CHRONIC OBSTRUCTIVE PULMONARY DISEASE W (ACUTE) EXACERBATION Status: Acute (3) HTN (hypertension) Code(s): I10 - ESSENTIAL (PRIMARY) HYPERTENSION Status: Chronic Qualifiers: Hypertension type: essential hypertension Qualified Code(s): I10 - Essential (primary) hypertension (4) Tobacco abuse Code(s): Z72.0 - TOBACCO USE Status: Chronic - Plan COPD exacerbation has mostly resolved. The patient is saturating well on room air and he does not appear to be in any respiratory distress. Continue albuterol, prednisone, and azithromycin. Repeat troponin is trending up. Continue aspirin, atorvastatin, Lovenox, and add metoprolol. Stress test today Off beta-chandan
[2020-09-17] MEDS: Nicotine 14 MG PATCH TD SCH (15:16)
[2020-09-17] MEDS: Azithromycin 500 MG in Sodium Chloride 0.9% 250 ML 250 ML IVPB SCH (21:11)
[2020-09-17] MEDS: Atorvastatin Calcium 40 MG TAB PO SCH (21:11)
[2020-09-18 07:22] VITALS: TEMP 97.7
[2020-09-18] MEDS: Aspirin 81 mg Enteric Coated Tablet PO SCH (08:38)
[2020-09-18] MEDS: predniSONE 20 MG TAB PO SCH (08:38)
[2020-09-18] MEDS: Enoxaparin Sodium 60 MG/0.6 ML SYRINGE SC SCH (08:38)
[2020-09-18] MEDS ORDERED: Regadenoson 0.4 MG/5 ML SYRINGE ONE (12:00)
--- NOTE | 2020-09-18 12:05 | PDOC.HOSPP ---
- Subjective Encounter Date: 09/18/20 Encounter Time: 11:00 Subjective: He just returned from the second part of the stress test. Can resume the diet will wait for the stress test result. - Objective Vital Signs & Weight: Vital Signs (12 hours) Temp Pulse Resp BP Pulse Ox 09/18/20 11:40 97.7 F 76 16 133/78 98 09/18/20 07:20 97.7 F 68 16 103/58 L 95 09/18/20 04:33 95 16 94 L 09/18/20 03:21 98.2 F 94 20 128/73 96 09/18/20 00:07 94 18 95 Weight Admit Weight 99 lb 8 oz Weight 99 lb 8 oz I&O: 09/17/20 09/18/20 09/19/20 06:59 06:59 06:59 Intake Total 800 1020 Output Total 150 300 Balance 650 720 Result Diagrams: 09/17/20 03:58 09/17/20 03:58 Hospitalist ROS - Medication Medications: Active Medications Generic Name Dose Route Start Last Admin Trade Name Jose Mq PRN Reason Stop Dose Admin Albuterol/Ipratropium 3 ml 09/16/20 01:00 09/18/20 04:36 Ipratropium/Albuterol Sulfate 3 Ml Neb NEB 3 ml [id number] BUSHRA Administration Aspirin 81 mg 09/16/20 09:00 09/18/20 08:38 Aspirin 81 Mg Enteric Coated Tablet PO 81 mg DAILY BUSHRA Administration Atorvastatin Calcium 40 mg 09/16/20 21:00 09/17/20 21:11 Atorvastatin Calcium 40 Mg Tab PO 40 mg HS BUSHRA Administration Enoxaparin Sodium 45 mg 09/17/20 09:00 09/18/20 08:38 Enoxaparin Sodium 60 Mg/0.6 Ml Syringe SC 45 mg 0900 BUSHRA Administration Azithromycin 500 mg/ Sodium 250 mls @ 250 mls/hr 09/15/20 21:00 09/17/20 21:11 Chloride IVPB 250 mls Q24HR BUSHRA Administration Nicotine 14 mg 09/16/20 16:00 09/17/20 15:16 Nicotine 14 Mg Patch TD 14 mg Q24HR BUSHRA Administration Prednisone 40 mg 09/16/20 09:00 09/18/20 08:38 Prednisone 20 Mg Tab PO 40 mg DAILY BUSHRA Administration - Exam General Appearance: NAD, awake alert Eye: PERRL ENT: normocephalic atraumatic Neck: supple Heart: RRR Respiratory: CTAB, normal chest expansion Gastrointestinal: soft, normal bowel sounds Neurological: no focal deficits Psychiatric: A&O x 3 Hosp A/P - Plan ) Elevated troponin I level Code(s): R77.8 - OTHER SPECIFIED ABNORMALITIES OF PLASMA PROTEINS Status: Acute (2) COPD exacerbation Code(s): J44.1 - CHRONIC OBSTRUCTIVE PULMONARY DISEASE W (ACUTE) EXACERBATION Status: Acute (3) HTN (hypertension) Code(s): I10 - ESSENTIAL (PRIMARY) HYPERTENSION Status: Chronic Qualifiers: Hypertension type: essential hypertension Qualified Code(s): I10 - Essential (primary) hypertension (4) Tobacco abuse Code(s): Z72.0 - TOBACCO USE Status: Chronic - Plan COPD exacerbation has mostly resolved. The patient is saturating well on room air and he does not appear to be in any respiratory distress. Continue albuterol, prednisone, and azithromycin. Repeat troponin is trending up. Continue aspirin, atorvastatin, Lovenox, and add metoprolol. Pending stress test result.
--- NOTE | 2020-09-18 12:55 | NM ---
Nuclear medicine Cardiac myocardial perfusion SPECT Ejection fraction study Wall motion cine: DATE:09/17/2020 12:31 PM INDICATION: Chest pain COPD and history of smoking TECHNIQUE: Number of days:2 Rest Study: Technetium 99m-sestamibi (Cardiolite) dose:28.10 mCi Stress study: Technetium 99m-sestamibi (Cardiolite) dose:27.00 mCi FINDINGS: Cardiac (myocardial perfusion) SPECT There are no reversible myocardial perfusion defects. Ejection fraction study Left ventricular EF = 87% Wall motion cine Normal wall motion and thickening IMPRESSION: No evidence of reversible myocardial ischemia.
[2020-09-18] MEDS: Nicotine 14 MG PATCH TD SCH (15:05)
--- NOTE | 2020-09-18 15:07 | PDOC.DS.DS ---
Provider - Provider Date of Admission: 09/15/20 19:03 Admitting Provider: Sandy Patino MD Primary Care Physician: Corry Sargent Course - Hospital Course Hospital Course: 70-year-old male presented with chest pain Elevated troponin I level Code(s): R77.8 - OTHER SPECIFIED ABNORMALITIES OF PLASMA PROTEINS Status: Acute Type II metabolic mismatch demand ischemia (2) COPD exacerbation Code(s): J44.1 - CHRONIC OBSTRUCTIVE PULMONARY DISEASE W (ACUTE) EXACERBATION Status: Acute (3) HTN (hypertension) Code(s): I10 - ESSENTIAL (PRIMARY) HYPERTENSION Status: Chronic Qualifiers: Hypertension type: essential hypertension Qualified Code(s): I10 - Essential (primary) hypertension (4) Tobacco abuse Code(s): Z72.0 - TOBACCO USE Status: Chronic Stress test negative for any ischemia. Patient is discharged with aspirin and Lipitor. And he is taken off the beta-b locker given his COPD history. Is also discharged with a short course of prednisone and Zithromax. He will follow with Dr. Mckeon in 1 week. Discharge time over 30 minutes. Resuscitation Status: 09/15/20 20:38 Resuscitation Status Routine Resuscitation Status: FULL: Full Resuscitation - Labs Lab Results: 09/17/20 03:58 09/17/20 03:58 Abnormal Lab Results - Last 48 hrs 09/17/20 03:58: Hgb 11.9 L, Hct 36.7 L - Physical Exam Vitals: Vital Signs (12 hours) Temp Pulse Resp BP Pulse Ox 09/18/20 14:39 78 18 09/18/20 11:40 97.7 F 76 16 133/78 98 09/18/20 07:20 97.7 F 68 16 103/58 L 95 09/18/20 04:33 95 16 94 L 09/18/20 03:21 98.2 F 94 20 128/73 96 Weight Admit Weight 99 lb 8 oz Weight 99 lb 8 oz Physical Exam: The patient was seen and examined on the day of discharge. Patient returned from the stress test of the test is negative. He is comfortable going home today. Plan - Discharge Medications Prescriptions: Atorvastatin Calcium [Lipitor] 40 mg PO HS 30 Days #30 tab Azithromycin [Zithromax] 500 mg PO DAILY 5 Days #5 bot Home Medications: Medication Instructions Recorded Confirmed Type Aspirin [Aspir-Low] 81 mg PO DAILY 07/12/17 09/15/20 History Fluticasone Furoate [Arnuity 1 puff INH DAILY 07/12/17 09/15/20 History Ellipta] Lisinopril 40 mg PO DAILY 07/12/17 09/15/20 History Umeclidinium/Vilanterol [Anoro 1 puff INH DAILY 07/12/17 09/15/20 History Ellipta 62.5/25 MCG INH] Albuterol Sulfate [Proair HFA] 1 puff INH PRN PRN 12/27/17 09/15/20 History Albuterol Sulfate [Albuterol 2.5 mg NEB Q6H PRN 06/17/20 09/15/20 History Sulfate Neb] Sertraline HCl [Zoloft] 50 mg PO DAILY 06/17/20 09/15/20 History Fluticasone Propionate [Flonase 1 spray EA NARE DAILY PRN 09/15/20 09/15/20 History Allergy Relief] Ventolin HFA Inhaler 1 puff INH DAILY 09/15/20 09/15/20 History Atorvastatin Calcium [Lipitor] 40 mg PO HS 30 Days #30 tab 09/18/20 Rx Azithromycin [Zithromax] 500 mg PO DAILY 5 Days #5 bot 09/18/20 Rx Allergies: No Known Allergies Allergy (Verified 06/17/20 10:02) - Discharge Instructions Discharge Instructions:: PCP follow-up in 1 week Follow-up with Dr. Mckeon cardiology in 1 week Activity:: Activity as Tolerated Nourishment:: Heart Healthy Diet - Follow up Plan Referrals: Corry Sargent MD [Primary Care Provider] - Disposition: HOME Quality - Care Measures CORE MEASURES:: N/A
[2020-09-18 15:08] VITALS: BP 146/68
--- NOTE | 2020-09-20 14:12 | PQF ---
CLINICAL DOCUMENTATION CLARIFICATION FORM: Dear Dr. Dean Koch Date: 09-20-20 Please exercise your independent, professional judgment in responding to the clarification form. Clinical indicators are provided on the bottom of this form for your review. Please check appropriate box(es): [ x ] Type 2 CT (T2MI) [ ] NSTEMI [ ] Other diagnosis [ ] Unable to determine For continuity of documentation, please document condition throughout progress notes and discharge summary. Thank You. To be completed by CDI/Coding staff for physician review: CLINICAL INDICATORS - SIGNS / SYMPTOMS / LABS / RESULTS AND LOCATION IN EMR ED: NSTEMI; COPD EXACERBATION LABS: Troponin I . @ 1722 0.460 . @ 0855 0.197 09.15 H&P ([facility]): transferred from [place] on account of NSTEMI. 09.16 Consult (Mike): No previous cardiac hx; pt reports having chest discomfort with his SOB. Pt denies having any present chest discomfort. Elevated troponin level, probably type [address] CT 09.18 DC Summary (August): Elevated troponin I - acute type 2 metabolic mismatch demand ischemia RISK FACTORS / RESULTS AND LOCATION IN 09.15 H&P ([facility]): * COPD exacerbation TREATMENTS / RESULTS AND LOCATION IN ED: Lovenox 1mg/kg sq; aspirin oral 324mg CPOE: *ADMIT TO TELEMETRY *Cardiology consult (09.16 Mike) *Stress Test Nuclear Medicine 09.15 H&P ([facility]): continue duo nebs; Prednisone, azithromycin CDS Signature: Ines Quiroz RN, CCDS Phone #: [phone] [email or web address] This is a permanent part of the Medical Record [facility]
--- NOTE | 2020-09-20 14:47 | PQF ---
CLINICAL DOCUMENTATION CLARIFICATION FORM: Dear Dr. Dean Koch Date: 09-20-20 Please exercise your independent, professional judgment in responding to the clarification form. Clinical indicators are provided on the bottom of this form for your review. Please check appropriate box(es): [ x ] Protein Calorie Malnutrition: [ ] Mild [ x] Moderate [ ] Severe [ ] Other Malnutrition (please specify) [ ] Underweight without malnutrition [ ] Cachexia [ ] Other diagnosis [ ] Unable to determine For continuity of documentation, please document condition throughout progress notes and discharge summary. Thank You. To be completed by CDI/Coding staff for physician review: CLINICAL INDICATORS - SIGNS / SYMPTOMS / LABS / RESULTS AND LOCATION IN EMR BMI 16.1 12.24 Nutrition Assessment: * suggestive of severe malnutrition in the context of chronic illness * severe generalized muscle and fat wasting, 13% weight loss x 8-10 months * Appetite has been good, very hungry * Has some difficulty chewing d/t missing teeth but decline modified textures. * UBW was 115 lbs 8-10 months ago. * Reported some chronic nausea d/t excess mucus, no v/d/c. *% Weight Change -13% x 8-10 months * non-pitting edema to penis, 1+ to BUE *severe generalized muscle and fat wasting *Malnutrition r/t COPD RISK FACTORS / RESULTS AND LOCATION IN MR 12.23 H&P ([facility]): * HX COPD admitted w/ COPD exacerbation TREATMENTS / RESULTS AND LOCATION IN MR 12.24 Nutrition Assessment: 1. Continue NPO status. When medically appropriate, recommend a regular diet. 2. When diet is advanced, recommend Ensure Enlive BID. 3. Provide anti-emetic PRN. CDS Signature: Ines Quiroz RN, CCDS Phone #: [phone] [email or web address] This is a permanent part of the Medical Record [facility]
== END 2020-09-18 17:20 | disposition home or self-care (01) | DRG 190 ==
LOC: ERS 16:38 → 2NO 19:03
PROVIDERS: ADMIT Internal Medicine; ATTEND Internal Medicine
DX: J44.1 Chronic obstructive pulmonary disease with (acute) exacerbation (principal); I21.A1 Myocardial infarction type 2; E44.0 Moderate protein-calorie malnutrition; Z68.1 Body mass index [BMI] 19.9 or less, adult; Z20.828 Contact with and (suspected) exposure to other viral communicable diseases; F41.9 Anxiety disorder, unspecified; F17.210 Nicotine dependence, cigarettes, uncomplicated; I10 Essential (primary) hypertension; F10.10 Alcohol abuse, uncomplicated; Z90.49 Acquired absence of other specified parts of digestive tract; Z82.49 Family history of ischemic heart disease and other diseases of the circulatory system; Z98.42 Cataract extraction status, left eye; Z98.41 Cataract extraction status, right eye; Z79.899 Other long term (current) drug therapy; Z79.82 Long term (current) use of aspirin; Z79.51 Long term (current) use of inhaled steroids
CPT/HCPCS: 36415; 71275; 78452; 80048; 82553; 82565; 84484; 85014; 85018; 85025; 85049; 87635; 93017; 94640; 96372; A9500; J0456; J1650; J2785; J7050; J7512; J7620; Q9967; U0003

== ENCOUNTER 2020-09-19 10:13 | Inpatient (IN) | payer MEDICARE, MEDICAID ==
[2020-09-19] MEDS ORDERED: Fentanyl 100 MCG/2 ML VIAL ONE ×2 (10:17→10:40)
[2020-09-19 10:38] LABS: Actual Bicarbonate (HCO3a) 18.9 mEq/L (22-28); Analyzer IN Cardio ER; Base Excess (BEa) -6.9 mEq/L (-2.0 to +3.0); CO2 Tension 39.1 mmHg (35.0-45.0); Calcium, Ionized (arterial) 1.24 mmol/L (1.12-1.30); Carboxyhemoglobin (COHb) 0.9 gm% (0.0-3.0); Hemoglobin (Hb) 13.1 g/dL (14.0-18.0); O2 Tension (PaO2), arterial 310.6 mmHg (> 80.0); Potassium - ABG Lab 3.37 mmol/L (3.70-5.30)
--- NOTE | 2020-09-19 10:38 | RAD ---
Exam: Chest one view HISTORY:Dyspnea Comparison: 09/15/2020 FINDINGS: Lines and tubes: Endotracheal tube at the level of clavicles. Cardiac silhouette: Normal Aorta: Unremarkable Pulmonary vessels: Normal Costophrenic angles: Clear LUNGS: Hyperinflation with chronic lung parenchymal changes. Pneumothorax: None Osseous abnormalities: None IMPRESSION: 1. Interval placement of endotracheal tube. Otherwise, no significant change.
[2020-09-19 10:40] LABS: Puncture Site RBA
[2020-09-19] MEDS ORDERED: fentaNYL Citrate/PF 2,000 MCG in Sodium Chloride 0.9% 60 ML IV SCH (10:45)
[2020-09-19 10:46] LABS: ALV-art Gradient 139.625 mmHg (0-20)
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
[2020-09-19 11:06] LABS: #Basophils 0.1 thou/uL (0.0-0.2); #Eosinphils 1.1 thou/uL (0.0-0.7); #Lymphocytes 1.8 thou/uL (1.20-3.40); #Monocytes 1.2 thou/uL (0.11-0.59); #Neutrophils 14.5 thou/uL (1.40-6.50); %Basophils 0.3 % (0.0-1.0); %Lymphocytes 9.8 % (21.0-51.0); %Monocytes 6.2 % (0.0-10.0); %Neutrophils 77.7 % (42.0-75.0); Hemoglobin 12.6 g/dL (14.0-18.0); Mean Corpuscular HGB CONC 32.8 g/dL (32.0-36.0); Mean Corpuscular Hemoglobin 32.6 pg (27.0-31.0); Mean Corpuscular Volume 99.4 fL (78.0-98.0); Mean Platelet Volume 8.6 fL (7.4-10.4); Platelet Count 328 thou/uL (130-400); RBC Distribution Width 13.7 % (11.5-14.5); Red Blood Cell (RBC) Count 3.88 mill/uL (4.70-6.10); White Blood Cell (WBC) Count 18.6 thou/uL (4.8-10.8)
[2020-09-19 11:14] LABS: INR-International Normal Ratio 0.9; Prothrombin Time 11.9 sec (12.0-14.7)
[2020-09-19] MEDS ORDERED: Norepinephrine 8 MG/0.9% NS 250 ML ONE (11:19)
[2020-09-19 11:23] LABS: PTT 21.2 sec (22.9-36.1)
[2020-09-19 11:29] LABS: ALT (SGPT) 20 U/L (8-55); AST (SGOT) 23 U/L (5-34); Albumin 3.8 g/dL (3.4-4.8); Alkaline Phosphatase 48 U/L (40-110); Anion Gap 14 mmol/L (10-20); BUN (Urea Nitrogen) 18 mg/dL (8.4-25.7); Bilirubin, Total 0.4 mg/dL (0.2-1.2); CK (CPK) 75 U/L (30-200); Calc. Creatinine Clearance 0 mL/min (70-130); Calcium 8.5 mg/dL (7.8-10.44); Carbon Dioxide 21 mmol/L (23-31); Chloride 109 mmol/L (98-107); Globulin 2.6 g/dL (2.4-3.5); Glucose 177 mg/dL (80-115); Potassium 3.2 mmol/L (3.5-5.1); Protein, Total 6.4 g/dL (5.8-8.1); Sodium 141 mmol/L (136-145)
[2020-09-19] MEDS ORDERED: Midazolam HCl 2 mg/2 ml Vial ONE (11:32)
[2020-09-19 11:39] LABS: SARS-CoV-2 NAA Rapid Test Not Detected (NotDetected)
[2020-09-19] MEDS ORDERED: Ketamine 500 mg/500 ml in NS IVPB PRN (12:00)
--- NOTE | 2020-09-19 13:57 | CT ---
CTA Angio Chest W WO Con 09/19/2020 1:30 PM Indication: 70-year-old male with history of dyspnea Technique: Multiple CTA images were obtained of the thorax with IV contrast. 3-D rendering: MIP maggie nstructed images were created and reviewed. Comparison: CTA of the chest dated September 15, 2020 Findings: Pulmonary arteries: No central or segmental pulmonary embolus is evident. Heart and Aorta: There are coronary artery and thoracic aortic calcifications. Mediastinum:Normal appearing. No enlarged lymph nodes. Lungs:There is severe emphysema. Spiculated pulmonary nodule of the left lower lobe measuring 6.8 mm is stable. Pleural space: Clear. Upper Abdomen: There are layered gallstones within gallbladder. There is a gastric catheter in place . Osseous Structures: There is stable superior endplate compression abnormality involving T5. There is diffuse osteopenia. Soft tissues:No abnormality. Other findings:None. Impression: No central or segmental pulmonary embolus. Severe emphysema. Stable spiculated pulmonary nodule in the left lower lobe. Follow-up as recommended on the comparison study. Cholelithiasis
[2020-09-19] MEDS ORDERED: Azithromycin 500 MG VIAL ONE (14:10)
[2020-09-19] MEDS ORDERED: cefTRIAXone\\ROCEPHIN 2 GM VIAL ONE (14:10)
[2020-09-19] MEDS ORDERED: DISCONTINUE PREVIOUS NARCOTIC PAIN MEDICATIONS AND BENZODIAZEPINES FS SCH (15:00)
[2020-09-19] MEDS ORDERED: Lorazepam 2 MG/ML VIAL SLOW IVP PRN ×2 (15:00→23:30)
[2020-09-19] MEDS ORDERED: Propofol 1,000 MG/100 ML VIAL IV PRN ×2 (15:00→23:31)
[2020-09-19] MEDS ORDERED: Fentanyl BOLUS 250 ML IVPB PRN ×2 (15:00→23:29)
[2020-09-19] MEDS ORDERED: Propofol BOLUS 1,000 MG/100 ML VIAL IV PRN ×2 (15:00→23:32)
[2020-09-19] MEDS ORDERED: Morphine 2 MG/ML VIAL SLOW IVP PRN ×2 (15:00→23:31)
[2020-09-19 15:27] VITALS: BMI 18.3
[2020-09-19] MEDS ORDERED: Propofol 1,000 MG/100 ML VIAL IV ONE (15:43)
[2020-09-19 16:05] LABS: Lactic Acid 1.4 mmol/L (0.5-2.2)
[2020-09-19 16:15] LABS: Troponin I 0.048 ng/mL (< 0.028)
[2020-09-19] MEDS: Multivitamins, Adult 10 ML, Folic Acid 1 MG, Thiamine HCl 100 MG in Dextrose 5 %-0.45 %... IV SCH (16:44)
--- NOTE | 2020-09-19 19:51 | HP ---
PRIMARY CARE PHYSICIAN: Dr. Sargent. CHIEF COMPLAINT: Shortness of breath. HISTORY OF PRESENT ILLNESS: Mr. Jacobsen is a pleasant 70-year-old gentleman who has a history of hypertension, COPD, as well as anxiety. He was actually recently admitted to the hospital for an NSTEMI and he has stents placed. His whom they are is at the bedside and says that she dropped him off home the other day and he seemed fine, but she got a call earlier this morning from the patient's saying that he was short of breath and could not breathe. EMS was called and when they arrived to the patient's residence, apparently he was breathing 40 times a minute and was hypoxic and they made the decision to intubate him in the field. He was brought to the emergency room, where he has been given magnesium as well as a dose of Versed and was also loaded with a weight base of fentanyl and is being admitted for further evaluation. Chest x-ray in the emergency room was essentially clear. There is no evidence of any infiltrates. A CT angiogram of the chest was also done, which was negative for pulmonary embolism. It is also notable that the patient has a history of tobacco abuse as well as heavy alcohol use. According to the patient's estranged , he has not had a history of any DTs in the past. REVIEW OF SYSTEMS: All systems were reviewed and are negative except for that mentioned in the history of present illness. PAST MEDICAL HISTORY: Significant for coronary artery disease, NSTEMI, COPD, and chronic respiratory failure secondary to that, anxiety as well as tobacco abuse. PAST SURGICAL HISTORY: He had an appendectomy. ALLERGIES: NO KNOWN DRUG ALLERGIES. SOCIAL HISTORY: He is , but he and his do not live together. He currently smokes unknown amount, but the says that on the way home he smoked about three cigarettes and that was only 30 minutes in a 30-minute time frame and she says he smokes "a lot." Also history of heavy alcohol abuse. Code status is full code. ALLERGIES: SIGNIFICANT FOR HEART DISEASE. MEDICATIONS: His current medications are taken from the discharge summary and include: 1. Aspirin 81 mg daily. 2. Arnuity Ellipta inhaler one puff daily. 3. Lisinopril 40 mg daily. 4. Albuterol HFA one puff as needed. 5. Albuterol nebs q.6. 6. Zoloft 50 mg daily. 7. Flonase nasal spray p.r.n. 8. Ventolin HFA one puff daily. 9. Atorvastatin 40 mg at bedtime. PHYSICAL EXAMINATION: GENERAL: He is alert. He is oriented x4. He is awake, despite being on the ventilator. He is trying to communicate by writing on some paper. He is very thin and frail in appearance. VITAL SIGNS: Blood pressure was 118/89, heart rate 100, respiratory rate of 18, and he is afebrile. HEENT: Pupils are equal, round, and reactive. Extraocular muscles are intact. His sclerae are anicteric. Throat, he has an ET tube in place. NECK: There is no adenopathy. No bruits. LUNGS: Essentially clear to auscultation. There is no wheezing, no rales, no rhonchi. CARDIOVASCULAR: Heart sounds are little bit distant. The heart rate is regular. There are no murmurs, clicks, or rubs. ABDOMEN: Soft. He has a midline abdominal scar. It is nontender, nondistended. Positive for bowel sounds. EXTREMITIES: There is no calf tenderness. No joint effusions. He has good dorsalis pedis pulses. No significant lesions. NEUROLOGIC: The exam is nonfocal. SKIN AND INTEGUMENT: There are no skin changes. No rash. LABORATORY DATA: White blood cell count is 18.6, hemoglobin 12.6, hematocrit is 38.5, and platelet count is 328. INR 0.9. Sodium 141, potassium 3.2, chloride is 109, CO2 is 21, BUN of 18, creatinine 1.02, glucose is 117. He had a COVID screen, which was negative as well as the influenza panel also negative. On his blood gas, the pH is 7.3, pCO2 is 39, pO2 was 310. On his chest x-ray, this is by my reading, the heart size is normal. The lungs are slightly hyperexpanded. There is no evidence of any infiltrates or any effusions. He also had a CT angiogram of the chest, which was reported as being negative for pulmonary embolism, but did demonstrate findings consistent with severe emphysema. ASSESSMENT: 1. This is a 70-year-old gentleman, who presents with respiratory failure likely as a result of chronic obstructive pulmonary disease exacerbation. His lung exam was essentially clear. Chest x-ray did not show any obvious infiltrates and it is also noted on exam that he had quite a bit of mucus secretions and it is possible that part of the respiratory failure could be the result of significant mucus plugging. The patient will be admitted to the ICU. We will continue DuoNebs as well as start him on IV steroids, empiric antibiotics due to the chronic obstructive pulmonary disease exacerbation, and we will consult Pulmonology for further recommendations. 2. Recent pho-EM-xkygukisf myocardial infarction. We will trend his troponins and restart his cardiac medications once these can be reconciled and initiated. 3. Alcohol abuse. We will place him on a banana bag as well as benzodiazepine for DT prophylaxis, and he will also be placed on deep venous thrombosis as well as gastrointestinal prophylaxis. Job ID: [id number]
--- NOTE | 2020-09-19 21:09 | CON ---
DATE OF CONSULTATION: 09/19/2020 HISTORY OF PRESENT ILLNESS: Mr. Jacobsen is a 70-year-old male, who has chronic obstructive pulmonary disease. Recently was admitted to the hospital, he had coronary stents placed. Apparently presented with shortness of breath via EMS. EMS intubated in the field. He subsequently has been admitted in the ICU. He had a CT pulmonary angiogram done four days ago that showed no embolic event. He had a CT pulmonary angiogram done today that showed no embolic event. He has a 7 mm nodule in his left lower lobe that is new compared to two years ago, this was seen on the last CT. He has changes of bullous emphysema. PAST MEDICAL HISTORY: Remarkable for, 1. Coronary artery disease. 2. Chronic obstructive pulmonary disease. 3. Anxiety. 4. Ongoing tobacco abuse. 5. History of an appendectomy. SOCIAL HISTORY: He is essentially a chain smoker. He says he has only had three drinks since he went home. He can actually nod quickly to questions with running. ALLERGIES: HE HAS NO REPORTED DRUG ALLERGIES. FAMILY HISTORY: Negative for lung disease in early age. REVIEW OF SYSTEMS: Ten points otherwise negative via nodding. PHYSICAL EXAMINATION: VITAL SIGNS: Heart rate 60, blood pressure 96/58, respiratory rate is 18, oximetry is 100%. HEAD AND NECK: Unremarkable. LUNGS: Clear. HEART: Regular rhythm. S1, S2 are normal. ABDOMEN: Soft and nontender. EXTREMITIES: Without clubbing, cyanosis, or edema. He has a prolonged expiratory phase. LABORATORY DATA: White count is 18.6, hemoglobin 12.6, platelets 328. Sodium 141, potassium 3.2, chloride 109, bicarb 21, BUN 18, creatinine 1.02. IMPRESSION: 1. Chronic obstructive pulmonary disease exacerbation with respiratory failure. 2. Pulmonary nodule that is new. This will need to be followed up at a later date. 3. History of coronary artery disease. 4. History of hypertension. 5. Ongoing tobacco use. He was discharged yesterday after his stress test is negative. He is back in the hospital, likely with COPD exacerbation. We will follow. Critical care time 30 minutes. This is a 50 minutes consult with greater than 50% time spent on the unit coordinating care. Job ID: [id number] [facility]
[2020-09-19] MEDS: Famotidine/PF 20 mg/2ml Vial SLOW IVP SCH (21:52)
[2020-09-20] MEDS: fentaNYL Citrate/PF 2,000 MCG in Sodium Chloride 0.9% 60 ML IV SCH ×2 (01:59→23:30)
[2020-09-20 08:02] LABS: Hemoglobin 11.7 g/dL (14.0-18.0); Mean Corpuscular HGB CONC 31.6 g/dL (32.0-36.0); Mean Corpuscular Hemoglobin 31.6 pg (27.0-31.0); Mean Platelet Volume 8.6 fL (7.4-10.4); Platelet Count 279 thou/uL (130-400); RBC Distribution Width 13.8 % (11.5-14.5)
[2020-09-20 08:14] LABS: Anion Gap 12 mmol/L (10-20); BUN (Urea Nitrogen) 13 mg/dL (8.4-25.7); Calc. Creatinine Clearance 58 mL/min (70-130); Calcium 8.3 mg/dL (7.8-10.44); Carbon Dioxide 21 mmol/L (23-31); Chloride 112 mmol/L (98-107); Glucose 84 mg/dL (80-115); Potassium 4.1 mmol/L (3.5-5.1); Sodium 141 mmol/L (136-145)
[2020-09-20 08:27] LABS: Actual Bicarbonate (HCO3a) 20.8 mEq/L (22-28); Base Excess (BEa) -3.4 mEq/L (-2.0 to +3.0); CO2 Tension 34.6 mmHg (35.0-45.0); Calcium, Ionized (arterial) 1.25 mmol/L (1.12-1.30); Carboxyhemoglobin (COHb) 0.4 gm% (0.0-3.0); O2 Tension (PaO2), arterial 89.1 mmHg (> 80.0); Potassium - ABG Lab 3.71 mmol/L (3.70-5.30)
[2020-09-20 08:31] LABS: Puncture Site LRA
[2020-09-20] MEDS: Famotidine/PF 20 mg/2ml Vial SLOW IVP SCH ×2 (08:50→21:06)
[2020-09-20] MEDS: Enoxaparin Sodium 40 MG/0.4 ML SYRINGE SC SCH (08:50)
[2020-09-20 09:43] LABS: Band 2 % (5-11); Burr Cells SLIGHT = 2-5 cells (100X) (0-1/hpf); Eosinophils 2 % (0-10); Lymphocytes 24 % (21-51); MDiff Complete? YES; Monocytes 8 % (0-10); Neutrophil 62 % (42-75); Platelet Morphology Comment Appears Adequate; Reactive Lymphocytes 2 % (0-10)
--- NOTE | 2020-09-20 09:50 | PDOC.HOSPP ---
- Subjective Encounter Date: 09/20/20 Encounter Time: 10:30 Subjective: Patient off sedation and tolerating the vent well, alert and writing messages. Following commands. - Objective Vital Signs & Weight: Vital Signs (12 hours) Temp Pulse Resp BP Pulse Ox 09/20/20 08:19 68 09/20/20 08:00 98.7 F 18 09/20/20 07:45 100 09/20/20 06:00 18 09/20/20 05:00 98.8 F 09/20/20 04:00 18 09/20/20 02:44 60 86/53 L 09/20/20 02:00 18 09/20/20 01:00 97.9 F 09/20/20 00:41 63 18 100 09/20/20 00:00 24 H 09/19/20 22:09 60 94/53 L 09/19/20 22:00 21 H Weight Weight 113 lb 12.136 oz Most Recent Monitor Data Heart Rate from ECG 66 NIBP 105/62 NIBP BP-Mean 76 Respiration from ECG 18 SpO2 100 I&O: 09/19/20 09/20/20 09/21/20 06:59 06:59 06:59 Intake Total 929.4 Output Total 890 80 Balance 39.4 -80 Result Diagrams: 09/20/20 07:39 09/20/20 07:39 Hospitalist ROS - Review of Systems ROS unobtainable: due to endotracheal tube - Medication Medications: Active Medications Generic Name Dose Route Start Last Admin Trade Name Freq PRN Reason Stop Dose Admin Albuterol/Ipratropium 3 ml 09/19/20 19:00 09/20/20 08:18 Ipratropium/Albuterol Sulfate 3 Ml Neb NEB 3 ml [id number] BUSHRA Administration Famotidine 20 mg 09/19/20 21:00 09/19/20 21:52 Famotidine/Pf 20 Mg/2ml Vial SLOW IVP 20 mg Q12HR BUSHRA Administration Fentanyl Citrate 2,000 mcg/ 100 mls @ 0 mls/hr 09/19/20 15:00 09/20/20 01:59 Sodium Chloride IV 10/19/20 15:00 100 mls INF BUSHRA Administration Protocol Per Protocol Multivitamins 10 ml/ Folic 1,011.2 mls @ 75 mls/hr 09/19/20 15:14 09/19/20 16:44 Acid 1 mg/ Thiamine HCl 100 mg IV 1,011.2 mls / Dextrose/Sodium Chloride Q24HR BUSHRA Administration - Exam General Appearance: NAD, awake alert ENT: moist mucosa ENT - other findings: ET tube in place Heart: RRR, no murmur, no gallops, no rubs Respiratory: no wheezes, no rales, no ronchi Respiratory - other findings: decent air movement bilaterally Gastrointestinal: soft, non-tender, non-distended, normal bowel sounds Extremities: no edema Psychiatric: normal affect, normal behavior Hosp A/P (1) Acute respiratory failure with hypoxia Code(s): J96.01 - ACUTE RESPIRATORY FAILURE WITH HYPOXIA Status: Acute (2) COPD exacerbation Code(s): J44.1 - CHRONIC OBSTRUCTIVE PULMONARY DISEASE W (ACUTE) EXACERBATION Status: Acute (3) HTN (hypertension) Code(s): I10 - ESSENTIAL (PRIMARY) HYPERTENSION Status: Chronic Qualifiers: (4) Tobacco abuse Code(s): Z72.0 - TOBACCO USE Status: Chronic (5) Alcohol abuse Code(s): F10.10 - ALCOHOL ABUSE, UNCOMPLICATED Status: Chronic (6) NSTEMI (non-ST elevated myocardial infarction) Code(s): I21.4 - NON-ST ELEVATION (NSTEMI) MYOCARDIAL INFARCTION Status: Resolved Plan: recently diagnosed last week - Plan Patient intubated in the field by EMS for COPD exacerbation with respiratory failure Dr. Fenton following No evidence repeat coronary event. No PE on CTA. Resume home meds. Planned extubation tomorrow morning. DVT proph: Lovenox GI proph: Pepcid BID
[2020-09-20] MEDS ORDERED: Fluticasone Propionate Nasal Spray 16 gm Bottle NASAL PRN (10:29)
[2020-09-20] MEDS: methylPREDNISolone Sod Succ 40 MG VIAL IVP SCH (11:30)
--- NOTE | 2020-09-20 11:57 | PRG ---
DATE OF SERVICE: 09/20/2020 SUBJECTIVE: Francisco Jacobsen is awake. He is in no distress. He wants to be extubated. I turned his ventilator down significantly. OBJECTIVE: VITAL SIGNS: Heart rates in 70s, FiO2 is 35, blood pressure 129/66. LUNGS: Distant clear. HEART: Regular rate and rhythm. ABDOMEN: Soft. EXTREMITIES: Without edema. LABORATORY DATA: White count 14, hemoglobin 11.7, platelets 279. Sodium 141, potassium 4.1, chloride 112, bicarb 21, BUN 13, creatinine 0.8. IMPRESSION: 1. Chronic obstructive pulmonary disease exacerbation. 2. Ongoing heavy tobacco use. 3. Coronary artery disease. 4. New pulmonary nodule. PLAN: Decrease ventilatory support, hopefully spontaneous breathing trial in the morning. Extubation early tomorrow. Critical care time 30 min. Job ID: [id number] MTDD
[2020-09-20] MEDS: cefTRIAXone\\ROCEPHIN 1 GM in Sodium Chloride 0.9% 100 ML IVPB SCH (13:05)
[2020-09-20] MEDS: Multivitamins, Adult 10 ML, Folic Acid 1 MG, Thiamine HCl 100 MG in Dextrose 5 %-0.45 %... IV SCH (14:34)
[2020-09-20] MEDS: Azithromycin 500 MG in Sodium Chloride 0.9% 250 ML 250 ML IVPB SCH (14:35)
[2020-09-20] MEDS ORDERED: FLU VACC QS2020-21(65YR UP)/PF 240 MCG/0.7 ML SYRINGE IM ONE (15:45)
[2020-09-20] MEDS: Atorvastatin Calcium 40 MG TAB PO SCH (21:06)
[2020-09-21] MEDS: Enoxaparin Sodium 40 MG/0.4 ML SYRINGE SC SCH (09:07)
[2020-09-21] MEDS: Aspirin 81 mg Enteric Coated Tablet PO SCH (09:08)
[2020-09-21] MEDS: methylPREDNISolone Sod Succ 40 MG VIAL IVP SCH (09:08)
[2020-09-21] MEDS: Famotidine/PF 20 mg/2ml Vial SLOW IVP SCH ×2 (09:08→21:29)
[2020-09-21] MEDS: Lisinopril 20 MG TAB PO SCH ×2 (09:08→14:07)
--- NOTE | 2020-09-21 13:21 | PDOC.HOSPP ---
- Subjective Encounter Date: 09/21/20 Encounter Time: 13:20 Subjective: Mr. Jacobsen was seen today in follow-up of COPD exacerbation. He is now extubated. He says he is ready to go home, but he appears extremely exhausted. - Objective Vital Signs & Weight: Vital Signs (12 hours) Temp Pulse Resp BP Pulse Ox 09/21/20 12:00 98.6 F 89 L 09/21/20 09:50 95 09/21/20 09:08 104/61 09/21/20 09:00 98.5 F 09/21/20 08:02 79 09/21/20 08:00 98.5 F 13 09/21/20 07:24 100 09/21/20 06:00 11 L 09/21/20 04:00 97.7 F 13 09/21/20 02:30 67 104/61 09/21/20 02:00 14 Weight Admit Weight 113 lb 12.16 oz Weight 113 lb 12.136 oz Most Recent Monitor Data Heart Rate from ECG 118 NIBP 146/79 NIBP BP-Mean 101 Respiration from ECG 22 SpO2 86 I&O: 09/20/20 09/21/20 09/22/20 06:59 06:59 06:59 Intake Total 929.4 1742.8 200.4 Output Total 890 1145 270 Balance 39.4 597.8 -69.6 Result Diagrams: 09/20/20 07:39 09/20/20 07:39 Hospitalist ROS - Medication Medications: Active Medications Generic Name Dose Route Start Last Admin Trade Name Freq PRN Reason Stop Dose Admin Albuterol/Ipratropium 3 ml 09/19/20 19:00 09/21/20 08:04 Ipratropium/Albuterol Sulfate 3 Ml Neb NEB 3 ml [id number] BUSHRA Administration Aspirin 81 mg 09/21/20 09:00 09/21/20 09:08 Aspirin 81 Mg Enteric Coated Tablet PO 81 mg DAILY BUSHRA Administration Atorvastatin Calcium 40 mg 09/20/20 21:00 09/20/20 21:06 Atorvastatin Calcium 40 Mg Tab PO 40 mg HS BUSHRA Administration Enoxaparin Sodium 40 mg 09/20/20 09:00 09/21/20 09:07 Enoxaparin Sodium 40 Mg/0.4 Ml Syringe SC 40 mg 0900 BUSHRA Administration Famotidine 20 mg 09/19/20:00 09/21/20 09:08 Famotidine/Pf 20 Mg/2ml Vial SLOW IVP 20 mg Q12HR BUSHRA Administration Fentanyl Citrate 2,000 mcg/ 100 mls @ 0 mls/hr 09/19/20 15:00 09/20/20 23:30 Sodium Chloride IV 10/19/20 15:00 100 mls INF BUSHRA Administration Protocol Per Protocol Azithromycin 500 mg/ Sodium 250 mls @ 250 mls/hr 09/20/20 15:00 09/20/20 14:35 Chloride IVPB 250 mls Q24HR BUSHRA Administration Ceftriaxone Sodium 1 gm/ 100 mls @ 200 mls/hr 09/20/20 14:00 09/20/20 13:05 Sodium Chloride IVPB 100 mls Q24HR BUSHRA Administration Multivitamins 10 ml/ Folic 1,011.2 mls @ 75 mls/hr 09/19/20 15:14 09/20/20 14:34 Acid 1 mg/ Thiamine HCl 100 mg IV 1,011.2 mls / Dextrose/Sodium Chloride Q24HR BUSHRA Administration Lisinopril 40 mg 09/21/20 09:00 09/21/20 09:08 Lisinopril 20 Mg Tab PO Not Given DAILY BUSHRA Lorazepam 2 mg 09/19/20 23:30 09/20/20 11:30 Lorazepam 2 Mg/Ml Vial SLOW IVP 10/19/20 23:31 2 mg Q1H PRN Administration Breakthrough agitation Methylprednisolone Sodium Succinate 40 mg 09/20/20 09:00 09/21/20 09:08 Methylprednisolone Sod Succ 40 Mg Vial IVP 40 mg DAILY BUSHRA Administration Propofol 1,000 mg 09/19/20 23:31 09/20/20 13:06 Propofol 1,000 Mg/100 Ml Vial IV 10/19/20 23:32 1,000 mg INF PRN Administration TO ACHIEVE GOAL RASS Protocol Sertraline HCl 50 mg 09/21/20 09:00 09/21/20 09:08 Sertraline Hcl 100 Mg Tab PO 50 mg DAILY BUSHRA Administration - Exam Eye: PERRL, anicteric sclera Heart: RRR, no murmur, no gallops, no rubs, normal peripheral pulses Respiratory: no wheezes (+ coarse breath sounds bilaterally,), no rales, no ronchi Gastrointestinal: soft, non-tender, non-distended, normal bowel sounds, no palpable masses, no hepatomegaly Extremities: no cyanosis, no edema Hosp A/P (1) Alcohol abuse Code(s): F10.10 - ALCOHOL ABUSE, UNCOMPLICATED Status: Chronic (2) Acute respiratory failure with hypoxia Code(s): J96.01 - ACUTE RESPIRATORY FAILURE WITH HYPOXIA Status: Acute (3) COPD exacerbation Code(s): J44.1 - CHRONIC OBSTRUCTIVE PULMONARY DISEASE W (ACUTE) EXACERBATION Status: Acute (4) HTN (hypertension) Code(s): I10 - ESSENTIAL (PRIMARY) HYPERTENSION Status: Chronic Qualifiers: (5) Tobacco abuse Code(s): Z72.0 - TOBACCO USE Status: Chronic - Plan * Acute respiratory failure with hypoxemia- due to COPD exacerbation- He is now extubated. * Continue Azithromycin and Rocephin,, and IV steroids. Will consider tappering steroids soon * ETOH abuse- ASE protocol * HTN- blood pressure is stable
[2020-09-21] MEDS ORDERED: Lorazepam 2 MG/ML VIAL SLOW IVP PRN (13:24)
[2020-09-21] MEDS: cefTRIAXone\\ROCEPHIN 1 GM in Sodium Chloride 0.9% 100 ML IVPB SCH (13:48)
[2020-09-21] MEDS: Azithromycin 500 MG in Sodium Chloride 0.9% 250 ML 250 ML IVPB SCH (15:00)
--- NOTE | 2020-09-21 16:43 | PRG ---
DATE OF SERVICE: 09/21/2020 SUBJECTIVE: Mr. Jacobsen is awake and alert. He passed a leak test this morning. OBJECTIVE: VITAL SIGNS: Heart rate is in the 70s, respiratory rate is in the teens. LUNGS: Remarkable for equal breath sounds. No wheezes. HEART: Regular rhythm. ABDOMEN: Soft. EXTREMITIES: Without edema. LABORATORY DATA: White count 14 yesterday. There is no CBC today. No electrolytes today. IMPRESSION: 1. Chronic obstructive pulmonary disease exacerbation, clinically improved. 2. Ongoing heavy tobacco use. He says he will be abstinent from here forward. 3. Coronary artery disease. 4. New pulmonary nodule. PLAN: Continue in the ICU until tomorrow morning. If he is stable, he can transfer out. We will continue with frequent nebulized treatments and steroids. His antibiotics can be simplified in the morning. I do not believe he has an atypical organism. . We will do his breathing treatments q.4 while he is in the Critical Care Unit. Critical care time 30 min. Job ID: [id number] MTDD
[2020-09-21] MEDS ORDERED: hydrALAZINE 20 MG/ML VIAL SLOW IVP PRN ×2 (18:37→19:07)
[2020-09-21] MEDS ORDERED: Labetalol HCl 100 MG/20 ML VIAL SLOW IVP PRN (18:37)
[2020-09-21] MEDS: Atorvastatin Calcium 40 MG TAB PO SCH (21:28)
[2020-09-22] MEDS: Multivitamins, Adult 10 ML, Folic Acid 1 MG, Thiamine HCl 100 MG in Dextrose 5 %-0.45 %... IV SCH ×2 (01:32→15:27)
[2020-09-22 02:02] LABS: Base Excess (BEa) -5.2 mEq/L (-2.0 to +3.0); CO2 Tension 37.9 mmHg (35.0-45.0); Calcium, Ionized (arterial) 1.24 mmol/L (1.12-1.30); Carboxyhemoglobin (COHb) 0.4 gm% (0.0-3.0); Hemoglobin (Hb) 12.7 g/dL (14.0-18.0); Potassium - ABG Lab 3.71 mmol/L (3.70-5.30); pH, Arterial 7.34 (7.35-7.45)
[2020-09-22 02:38] LABS: O2 Tension (PaO2), arterial 53.8 mmHg (> 80.0)
[2020-09-22 02:39] LABS: ALV-art Gradient 255.325 mmHg (0-20); Puncture Site LRA
[2020-09-22] MEDS ORDERED: Magnesium Sulfate 3 GM in Sodium Chloride 0.9% 100 ML IVPB SCH (03:00)
[2020-09-22] MEDS: Labetalol HCl 100 MG/20 ML VIAL SLOW IVP PRN ×2 (03:19→13:10)
[2020-09-22] MEDS: Famotidine/PF 20 mg/2ml Vial SLOW IVP SCH ×2 (10:06→20:44)
[2020-09-22] MEDS: methylPREDNISolone Sod Succ 40 MG VIAL IVP SCH ×3 (10:08→21:55)
[2020-09-22] MEDS: Aspirin 81 mg Enteric Coated Tablet PO SCH (11:53)
[2020-09-22] MEDS: Lisinopril 20 MG TAB PO SCH (11:54)
[2020-09-22] MEDS ORDERED: Propofol 1,000 MG/100 ML VIAL IV ONE (12:18)
[2020-09-22] MEDS ORDERED: Midazolam HCl 2 mg/2 ml Vial ONE (12:18)
[2020-09-22] MEDS ORDERED: Vecuronium 10 MG VIAL ONE (12:24)
[2020-09-22] MEDS: Vecuronium 10 MG VIAL IV SCH (12:30)
[2020-09-22] MEDS ORDERED: Midazolam HCl 2 mg/2 ml Vial IVP PRN (12:38)
[2020-09-22] MEDS: Enoxaparin Sodium 40 MG/0.4 ML SYRINGE SC SCH (13:16)
[2020-09-22] MEDS ORDERED: Ventilator Sedation Protocol 1 EACH FS SCH (14:00)
[2020-09-22] MEDS ORDERED: DISCONTINUE PREVIOUS NARCOTIC PAIN MEDICATIONS AND BENZODIAZEPINES FS SCH (14:15)
[2020-09-22] MEDS ORDERED: Fentanyl BOLUS 250 ML IVPB PRN (14:15)
[2020-09-22] MEDS ORDERED: Morphine 2 MG/ML VIAL SLOW IVP PRN (14:15)
[2020-09-22] MEDS ORDERED: Propofol BOLUS 1,000 MG/100 ML VIAL IV PRN (14:15)
--- NOTE | 2020-09-22 14:20 | PRG ---
DATE OF SERVICE: 09/22/2020 SUBJECTIVE: Francisco Jacobsen got agitated and needed BiPAP last night. He has been difficult to control as he keeps trying to get out of bed. He was observed multiple times this morning and he was felt to be better off if he was re-intubated. OBJECTIVE: VITAL SIGNS: Have been remarkable for hypertension associated with most likely with his work of breathing. Heart rates have been in the 80s, respiratory rates in the teens to low 20s. BiPAP is in place. LUNGS: Remarkable for coarse equal breath sounds. HEART: Regular rhythm. ABDOMEN: Soft. LABORATORY DATA: White count 14, two days ago. There is no lab today. There is no electrolytes today. IMPRESSION: Respiratory failure associated with chronic obstructive pulmonary disease and deconditioning. PLAN: Re-intubation. CRITICAL CARE TIME: 30 minutes excluding procedure. Job ID: [id number] MTDD
[2020-09-22] MEDS: fentaNYL Citrate/PF 2,000 MCG in Sodium Chloride 0.9% 60 ML IV SCH (14:28)
[2020-09-22] MEDS: cefTRIAXone\\ROCEPHIN 1 GM in Sodium Chloride 0.9% 100 ML IVPB SCH (14:37)
--- NOTE | 2020-09-22 14:53 | PDOC.HOSPP ---
- Subjective Encounter Date: 09/22/20 Encounter Time: 12:30 Subjective: was agitated overnight, is on bipap - Objective Vital Signs & Weight: Vital Signs (12 hours) Temp Pulse Resp BP Pulse Ox 09/22/20 13:10 81 201/80 H 09/22/20 12:36 80 09/22/20 12:00 97.6 F 09/22/20 11:54 163/95 H 09/22/20 10:59 72 23 H 100 09/22/20 08:00 97.8 F 09/22/20 07:58 99 09/22/20 07:41 89 09/22/20 07:40 87 19 100 09/22/20 04:06 87 23 H 95 09/22/20 03:19 131 H 211/114 H Weight Admit Weight 113 lb 12.16 oz Weight 113 lb 12.136 oz Most Recent Monitor Data Heart Rate from ECG 69 NIBP 183/77 NIBP BP-Mean 112 Respiration from ECG 12 SpO2 96 I&O: 09/21/20 09/22/20 09/23/20 06:59 06:59 06:59 Intake Total 1742.8 580.4 Output Total 1145 1260 310 Balance 597.8 -679.6 -310 Result Diagrams: 09/20/20 07:39 09/20/20 07:39 Hospitalist ROS - Medication Medications: Active Medications Generic Name Dose Route Start Last Admin Trade Name Freq PRN Reason Stop Dose Admin Albuterol/Ipratropium 3 ml 09/22/20 03:00 09/22/20 10:59 Ipratropium/Albuterol Sulfate 3 Ml Neb NEB 3 ml [id number] BUSHRA Administration Aspirin 81 mg 09/21/20 09:00 09/22/20 11:53 Aspirin 81 Mg Enteric Coated Tablet PO Not Given DAILY BUSHRA Atorvastatin Calcium 40 mg 09/20/20 21:00 09/21/20 21:28 Atorvastatin Calcium 40 Mg Tab PO 40 mg HS BUSHRA Administration Enoxaparin Sodium 40 mg 09/20/20 09:00 09/22/20 13:16 Enoxaparin Sodium 40 Mg/0.4 Ml Syringe SC 40 mg 0900 BUSHRA Administration Famotidine 20 mg 09/19/20 21:00 09/22/20 10:06 Famotidine/Pf 20 Mg/2ml Vial SLOW IVP 20 mg Q12HR BUSHRA Administration Ceftriaxone Sodium 1 gm/ 100 mls @ 200 mls/hr 09/20/20 14:00 09/22/20 14:37 Sodium Chloride IVPB 100 mls Q24HR BUSHRA Administration Multivitamins 10 ml/ Folic 1,011.2 mls @ 75 mls/hr 09/19/20 15:14 09/22/20 01:32 Acid 1 mg/ Thiamine HCl 100 mg IV Not Given / Dextrose/Sodium Chloride Q24HR [facility] Dexmedetomidine HCl 400 mcg/ 100 mls @ 0 mls/hr 09/22/20 02:45 09/22/20 10:06 Sodium Chloride IVPB 100 mls INF BUSHRA Administration Protocol Titrate Fentanyl Citrate 2,000 mcg/ 100 mls @ 0 mls/hr 09/22/20 14:15 09/22/20 14:28 Sodium Chloride IV 10/22/20 14:15 100 mls INF BUSHRA Administration Protocol Per Protocol Labetalol HCl 10 mg 09/22/20 03:15 09/22/20 13:10 Labetalol Hcl 100 Mg/20 Ml Vial SLOW IVP 10 mg Q4H PRN Administration SBP Greater Than 180 Lisinopril 40 mg 09/21/20 09:00 09/22/20 11:54 Lisinopril 20 Mg Tab PO Not Given DAILY [facility] Methylprednisolone Sodium Succinate 40 mg 09/22/20 14:00 09/22/20 14:38 Methylprednisolone Sod Succ 40 Mg Vial IVP 40 mg Q8HR BUSHRA Administration Midazolam HCl 2 mg 09/22/20 12:38 09/22/20 12:30 Midazolam Hcl 2 Mg/2 Ml Vial IVP 2 mg WILLCALL PRN Administration INTUBATION Sertraline HCl 50 mg 09/21/20 09:00 09/22/20 11:54 Sertraline Hcl 100 Mg Tab PO Not Given DAILY [facility] Vecuronium [place] 10 mg 09/22/20 12:45 09/22/20 12:30 Vecuronium 10 Mg Vial IV 10 mg WILLCALL BUSHRA Administration - Exam General Appearance: ill appearing Eye: anicteric sclera ENT: no oropharyngeal lesions, dry oral mucosa Neck: supple, no JVD Heart: RRR, no murmur Respiratory: normal chest expansion Gastrointestinal: soft, non-tender, non-distended, normal bowel sounds Extremities: no cyanosis, no edema Neurological: cranial nerve grossly intact, no focal deficits Hosp A/P (1) Acute respiratory failure with hypoxia Code(s): J96.01 - ACUTE RESPIRATORY FAILURE WITH HYPOXIA Status: Acute (2) COPD exacerbation Code(s): J44.1 - CHRONIC OBSTRUCTIVE PULMONARY DISEASE W (ACUTE) EXACERBATION Status: Acute (3) Alcohol abuse Code(s): F10.10 - ALCOHOL ABUSE, UNCOMPLICATED Status: Chronic (4) HTN (hypertension) Code(s): I10 - ESSENTIAL (PRIMARY) HYPERTENSION Status: Chronic Qualifiers: (5) Tobacco abuse Code(s): Z72.0 - TOBACCO USE Status: Chronic (6) Acute metabolic encephalopathy Code(s): G93.41 - METABOLIC ENCEPHALOPATHY Status: Acute - Plan is encephalopathic and getting re-intubated continue asp, lipitor, cefriaxone, nebs, steroids, lisinopril, iv fluids hemostable
[2020-09-22] MEDS: Sodium Chloride 0.9% 1,000 ML IV SCH (15:27)
[2020-09-22 15:28] LABS: Actual Bicarbonate (HCO3a) 16.5 mEq/L (22-28); Base Excess (BEa) -9.8 mEq/L (-2.0 to +3.0); CO2 Tension 37.3 mmHg (35.0-45.0); Calcium, Ionized (arterial) 1.25 mmol/L (1.12-1.30); Carboxyhemoglobin (COHb) 0.2 gm% (0.0-3.0); O2 Tension (PaO2), arterial 67.7 mmHg (> 80.0); Potassium - ABG Lab 4.39 mmol/L (3.70-5.30); pH, Arterial 7.26 (7.35-7.45)
[2020-09-22 15:30] LABS: Puncture Site LRA
[2020-09-22 15:31] LABS: ALV-art Gradient 170.875 mmHg (0-20)
[2020-09-22] MEDS: Atorvastatin Calcium 40 MG TAB PO SCH (20:44)
[2020-09-22] MEDS: Propofol 1,000 MG/100 ML VIAL IV PRN (21:55)
[2020-09-23 04:51] LABS: Anion Gap 16 mmol/L (10-20); BUN (Urea Nitrogen) 21 mg/dL (8.4-25.7); Calc. Creatinine Clearance 54 mL/min (70-130); Calcium 8.4 mg/dL (7.8-10.44); Carbon Dioxide 20 mmol/L (23-31); Chloride 104 mmol/L (98-107); Glucose 240 mg/dL (80-115); Potassium 4.1 mmol/L (3.5-5.1); Sodium 136 mmol/L (136-145)
[2020-09-23 05:09] LABS: Band 11 % (5-11); Hemoglobin 10.8 g/dL (14.0-18.0); Hypochromia SLIGHT = 6-15 cells (100X) (0-5/hpf); Lymphocytes 5 % (21-51); MDiff Complete? YES; Mean Corpuscular HGB CONC 31.4 g/dL (32.0-36.0); Mean Corpuscular Hemoglobin 31.3 pg (27.0-31.0); Mean Corpuscular Volume 99.8 fL (78.0-98.0); Mean Platelet Volume 9.2 fL (7.4-10.4); Monocytes 5 % (0-10); Neutrophil 79 % (42-75); Platelet Count 307 thou/uL (130-400); Platelet Morphology Comment Appears Adequate; RBC Distribution Width 13.3 % (11.5-14.5); Red Blood Cell (RBC) Count 3.46 mill/uL (4.70-6.10); White Blood Cell (WBC) Count 12.9 thou/uL (4.8-10.8)
[2020-09-23] MEDS: Lorazepam 2 MG/ML VIAL SLOW IVP PRN ×2 (05:16→22:25)
[2020-09-23] MEDS: methylPREDNISolone Sod Succ 40 MG VIAL IVP SCH ×3 (05:18→21:08)
[2020-09-23] MEDS: Sodium Chloride 0.9% 1,000 ML IV SCH ×2 (05:21→19:28)
--- NOTE | 2020-09-23 07:18 | OP ---
DATE OF PROCEDURE: 09/22/2020 PROCEDURE PERFORMED: Fiberoptic bronchoscopy with intubation and therapeutic suctioning. DESCRIPTION OF PROCEDURE: The patient was sedated with Versed. Once he was sedated, a bite block was placed in his mouth, and bronchoscope was passed into his throat and then into his trachea. His vocal cords appeared normal. Endotracheal tube was advanced and secured above the main adilene. Copious amounts of clear thick white secretions were suctioned from his upper airway prior to intubation. He was then connected to mechanical ventilation, deeply sedated. PH 7.34, CO2 of 37, pO2 of 53 early this morning when he went on BiPAP. Blood gas is pending post intubation. Job ID: [id number]
[2020-09-23 08:24] LABS: ALV-art Gradient 147.275 mmHg (0-20); Actual Bicarbonate (HCO3a) 18.8 mEq/L (22-28); Base Excess (BEa) -7.1 mEq/L (-2.0 to +3.0); CO2 Tension 39.3 mmHg (35.0-45.0); Calcium, Ionized (arterial) 1.22 mmol/L (1.12-1.30); Carboxyhemoglobin (COHb) 0.3 gm% (0.0-3.0); Hemoglobin (Hb) 11.8 g/dL (14.0-18.0); O2 Tension (PaO2), arterial 88.8 mmHg (> 80.0); Potassium - ABG Lab 3.98 mmol/L (3.70-5.30); Puncture Site RRA
[2020-09-23] MEDS: fentaNYL Citrate/PF 2,000 MCG in Sodium Chloride 0.9% 60 ML IV SCH (08:27)
--- NOTE | 2020-09-23 08:40 | RAD ---
Portable frontal chest radiograph: 09/23/2020 COMPARISON: 09/19/2020 HISTORY: Ventilated patient FINDINGS: There is an endotracheal tube in place. The endotracheal tube has been significantly advanc ed when compared to the prior examination, now lying within 1.7 cm of the adilene. There is a nasogastric tube extending into the left upper quadrant. Lungs are hyperinflated with diffuse increas ed linear interstitial density suggesting COPD. There are vertically oriented areas of linear lucency overlying the right hemithorax which are felt t o most likely signify skinfolds. No convincing evidence for pneumothorax is seen on either side. There is mild patchy opacity in the medial right lung base which is new when compared to the 09/19/20 20 exam. IMPRESSION: Interstitial prominence and pulmonary hyperinflation suggesting COPD. Endotracheal tube h as been advanced and now lies within 1.7 cm above the adilene. Patchy new opacity is noted in the medial right lung base which may signify developing infectious pneumonitis/aspiration.
[2020-09-23] MEDS: Lisinopril 20 MG TAB PO SCH (08:56)
[2020-09-23] MEDS: Enoxaparin Sodium 40 MG/0.4 ML SYRINGE SC SCH (08:57)
[2020-09-23] MEDS: Famotidine/PF 20 mg/2ml Vial SLOW IVP SCH ×2 (08:57→21:08)
[2020-09-23] MEDS: Aspirin 81 mg Enteric Coated Tablet PO SCH (08:57)
[2020-09-23] MEDS: Propofol 1,000 MG/100 ML VIAL IV PRN ×3 (10:09→15:45)
[2020-09-23] MEDS: cefTRIAXone\\ROCEPHIN 1 GM in Sodium Chloride 0.9% 100 ML IVPB SCH (13:04)
--- NOTE | 2020-09-23 15:17 | PDOC.HOSPP ---
- Subjective Encounter Date: 09/23/20 Encounter Time: 09:15 Subjective: is on vent, sedated not in distress - Objective Vital Signs & Weight: Vital Signs (12 hours) Temp Pulse Resp BP Pulse Ox 09/23/20 14:00 18 09/23/20 12:00 97.8 F 18 09/23/20 10:58 82 129/64 09/23/20 10:53 80 21 H 99 09/23/20 10:00 21 H 09/23/20 09:39 76 125/64 09/23/20 09:38 74 18 99 09/23/20 08:56 116/61 09/23/20 08:12 68 116/66 09/23/20 08:00 97.7 F 09/23/20 07:43 16 100 09/23/20 06:00 16 09/23/20 04:13 64 134/57 L 09/23/20 04:00 97.2 F L 26 H 100 Weight Admit Weight 113 lb 12.16 oz Weight 113 lb 12.136 oz Most Recent Monitor Data Heart Rate from ECG 71 NIBP 119/61 NIBP BP-Mean 80 Respiration from ECG 18 SpO2 100 I&O: 09/22/20 09/23/20 09/24/20 06:59 06:59 06:59 Intake Total 580.4 1766.9 Output Total 1260 865 170 Balance -679.6 901.9 -170 Result Diagrams: 09/23/20 03:51 09/23/20 03:51 Hospitalist ROS - Medication Medications: Active Medications Generic Name Dose Route Start Last Admin Trade Name Freq PRN Reason Stop Dose Admin Albuterol/Ipratropium 3 ml 09/22/20 03:00 09/23/20 10:53 Ipratropium/Albuterol Sulfate 3 Ml Neb NEB 3 ml [id number] BUSHRA Administration Aspirin 81 mg 09/21/20 09:00 09/23/20 08:57 Aspirin 81 Mg Enteric Coated Tablet PO 81 mg DAILY BUSHRA Administration Atorvastatin Calcium 40 mg 09/20/20 21:00 09/22/20 20:44 Atorvastatin Calcium 40 Mg Tab PO 40 mg HS BUSHRA Administration Enoxaparin Sodium 40 mg 09/20/20 09:00 09/23/20 08:57 Enoxaparin Sodium 40 Mg/0.4 Ml Syringe SC 40 mg 0900 BUSHRA Administration Famotidine 20 mg 09/19/20 21:00 09/23/20 08:57 Famotidine/Pf 20 Mg/2ml Vial SLOW IVP 20 mg Q12HR BUSHRA Administration Ceftriaxone Sodium 1 gm/ 100 mls @ 200 mls/hr 09/20/20 14:00 09/23/20 13:04 Sodium Chloride IVPB 100 mls Q24HR BUSHRA Administration Multivitamins 10 ml/ Folic 1,011.2 mls @ 75 mls/hr 09/19/20 15:14 09/22/20 15:27 Acid 1 mg/ Thiamine HCl 100 mg IV 1,011.2 mls / Dextrose/Sodium Chloride Q24HR BUSHRA Administration Dexmedetomidine HCl 400 mcg/ 100 mls @ 0 mls/hr 09/22/20 02:45 09/23/20 12:35 Sodium Chloride IVPB 100 mls INF BUSHRA Administration Protocol Titrate Fentanyl Citrate 2,000 mcg/ 100 mls @ 0 mls/hr 09/22/20 14:15 09/23/20 08:27 Sodium Chloride IV 10/22/20 14:15 100 mls INF BUSHRA Administration Protocol Per Protocol Sodium Chloride 1,000 mls @ 70 mls/hr 09/22/20 15:00 09/23/20 05:21 Normal Saline 0.9% IV 1,000 mls .[id number] BUSHRA Administration Labetalol HCl 10 mg 09/22/20 03:15 09/22/20 13:10 Labetalol Hcl 100 Mg/20 Ml Vial SLOW IVP 10 mg Q4H PRN Administration SBP Greater Than 180 Lisinopril 40 mg 09/21/20 09:00 09/23/20 08:56 Lisinopril 20 Mg Tab PO 40 mg DAILY BUSHRA Administration Lorazepam 2 mg 09/22/20 14:15 09/23/20 05:16 Lorazepam 2 Mg/Ml Vial SLOW IVP 10/22/20 14:15 2 mg Q1H PRN Administration Breakthrough agitation Methylprednisolone Sodium Succinate 40 mg 09/22/20 14:00 09/23/20 13:05 Methylprednisolone Sod Succ 40 Mg Vial IVP 40 mg Q8HR BUSHRA Administration Midazolam HCl 2 mg 09/22/20 12:38 09/22/20 12:30 Midazolam Hcl 2 Mg/2 Ml Vial IVP 2 mg WILLCALL PRN Administration INTUBATION Propofol 1,000 mg 09/22/20 14:15 09/23/20 12:35 Propofol 1,000 Mg/100 Ml Vial IV 10/22/20 14:15 1,000 mg INF PRN Administration TO ACHIEVE GOAL RASS Protocol Sertraline HCl 50 mg 09/21/20 09:00 09/23/20 08:57 Sertraline Hcl 100 Mg Tab PO 50 mg DAILY BUSHRA Administration Sodium Chloride 10 ml 09/22/20 21:00 09/23/20 08:57 Flush - Normal Saline 10 Ml Syringe IVF 10 ml Q12HR BUSHRA Administration Vecuronium [place] 10 mg 09/22/20 12:45 09/22/20 12:30 Vecuronium 10 Mg Vial IV 10 mg WILLCALL BUSHRA Administration - Exam Eye: PERRL, anicteric sclera ENT: no oropharyngeal lesions, moist mucosa Neck: supple, no JVD Heart: RRR, no murmur Respiratory: no wheezes, no rales, rhonchi Gastrointestinal: soft, non-tender, non-distended, normal bowel sounds Extremities: no cyanosis, no edema Neurological: cranial nerve grossly intact, no focal deficits Hosp A/P (1) Acute respiratory failure with hypoxia Code(s): J96.01 - ACUTE RESPIRATORY FAILURE WITH HYPOXIA Status: Acute (2) COPD exacerbation Code(s): J44.1 - CHRONIC OBSTRUCTIVE PULMONARY DISEASE W (ACUTE) EXACERBATION Status: Acute (3) Alcohol abuse Code(s): F10.10 - ALCOHOL ABUSE, UNCOMPLICATED Status: Chronic (4) HTN (hypertension) Code(s): I10 - ESSENTIAL (PRIMARY) HYPERTENSION Status: Chronic Qualifiers: (5) Tobacco abuse Code(s): Z72.0 - TOBACCO USE Status: Chronic (6) Acute metabolic encephalopathy Code(s): G93.41 - METABOLIC ENCEPHALOPATHY Status: Acute - Plan weaning per pulm advice continue asp, lipitor, cefriaxone, nebs, steroids, lisinopril, iv fluids hemostable unable to reach his girlfriend (goes to [facility] main number) or sister over phone 09/23
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
[2020-09-23] MEDS: Multivitamins, Adult 10 ML, Folic Acid 1 MG, Thiamine HCl 100 MG in Dextrose 5 %-0.45 %... IV SCH (19:26)
[2020-09-23] MEDS: Atorvastatin Calcium 40 MG TAB PO SCH (21:07)
[2020-09-24] MEDS: Lorazepam 2 MG/ML VIAL SLOW IVP PRN ×2 (01:32→05:01)
[2020-09-24] MEDS: fentaNYL Citrate/PF 2,000 MCG in Sodium Chloride 0.9% 60 ML IV SCH ×2 (03:31→23:28)
[2020-09-24 04:57] LABS: Anion Gap 13 mmol/L (10-20); BUN (Urea Nitrogen) 19 mg/dL (8.4-25.7); Calc. Creatinine Clearance 54 mL/min (70-130); Calcium 8.6 mg/dL (7.8-10.44); Carbon Dioxide 21 mmol/L (23-31); Chloride 105 mmol/L (98-107); Glucose 266 mg/dL (80-115); Potassium 3.8 mmol/L (3.5-5.1); Sodium 135 mmol/L (136-145)
[2020-09-24] MEDS: Propofol 1,000 MG/100 ML VIAL IV PRN ×2 (05:19→17:59)
[2020-09-24] MEDS: methylPREDNISolone Sod Succ 40 MG VIAL IVP SCH ×3 (05:19→20:35)
[2020-09-24 05:43] LABS: Hemoglobin 11.3 g/dL (14.0-18.0); Mean Corpuscular HGB CONC 31.7 g/dL (32.0-36.0); Mean Corpuscular Hemoglobin 31.4 pg (27.0-31.0); Mean Corpuscular Volume 99.1 fL (78.0-98.0); Platelet Count 316 thou/uL (130-400); RBC Distribution Width 13.5 % (11.5-14.5); Red Blood Cell (RBC) Count 3.59 mill/uL (4.70-6.10); White Blood Cell (WBC) Count 21.6 thou/uL (4.8-10.8)
[2020-09-24 06:34] LABS: Band 10 % (5-11); MDiff Complete? YES; Monocytes 2 % (0-10); Neutrophil 88 % (42-75); Toxic Granulation SLIGHT
[2020-09-24 07:10] LABS: Actual Bicarbonate (HCO3a) 22.2 mEq/L (22-28); Base Excess (BEa) -2.9 mEq/L (-2.0 to +3.0); Calcium, Ionized (arterial) 1.24 mmol/L (1.12-1.30); Carboxyhemoglobin (COHb) 0.2 gm% (0.0-3.0); Hemoglobin (Hb) 13.1 g/dL (14.0-18.0); O2 Tension (PaO2), arterial 72.9 mmHg (> 80.0); pH, Arterial 7.36 (7.35-7.45)
[2020-09-24 07:19] LABS: Puncture Site RBA
[2020-09-24] MEDS: Aspirin 81 mg Enteric Coated Tablet PO SCH (09:01)
[2020-09-24] MEDS: Lisinopril 20 MG TAB PO SCH (09:01)
[2020-09-24] MEDS: Famotidine/PF 20 mg/2ml Vial SLOW IVP SCH ×2 (09:02→20:35)
[2020-09-24] MEDS: Enoxaparin Sodium 40 MG/0.4 ML SYRINGE SC SCH (09:02)
[2020-09-24] MEDS: Sodium Chloride 0.9% 1,000 ML IV SCH (09:06)
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
--- NOTE | 2020-09-24 10:07 | PRG ---
DATE OF SERVICE: 09/24/2020 SUBJECTIVE: Intubated in the vent, day #5. X-ray shows no acute infiltrates. He is sedated. OBJECTIVE: VITAL SIGNS: His temperature is 98, blood pressure 130/76, pulse 76, sats are 100% on 40%, PEEP of 5. CHEST: Decreased breath sounds. Prolonged expiration. CARDIAC: Normal S1, S2. No masses. LABORATORY DATA: PO2 72, pCO2 40. BUN is 36. White count 21,000. The lytes are normal. X-ray was clear. ASSESSMENT: 1. Chronic obstructive pulmonary disease exacerbation. 2. Leukocytosis. PLAN: Continue steroids, antibiotics, neb treatment. One half of critical time. Job ID: [id number]
[2020-09-24] MEDS: cefTRIAXone\\ROCEPHIN 1 GM in Sodium Chloride 0.9% 100 ML IVPB SCH (13:28)
--- NOTE | 2020-09-24 14:44 | PDOC.HOSPP ---
- Subjective Encounter Date: 09/24/20 Encounter Time: 12:45 Subjective: sedated, is on vent - Objective Vital Signs & Weight: Vital Signs (12 hours) Temp Pulse Resp BP Pulse Ox 09/24/20 12:00 98.4 F 21 H 09/24/20 11:01 83 115/70 09/24/20 10:59 83 12 99 09/24/20 10:00 19 09/24/20 09:40 98 14 100 09/24/20 09:01 133/72 09/24/20 08:00 98.3 F 19 100 09/24/20 07:20 76 09/24/20 07:18 77 16 100 09/24/20 06:00 19 09/24/20 04:00 98.4 F 18 Weight Admit Weight 113 lb 12.16 oz Weight 113 lb 12.136 oz Most Recent Monitor Data Heart Rate from ECG 86 NIBP 126/63 NIBP BP-Mean 84 Respiration from ECG 14 SpO2 100 I&O: 09/23/20 09/24/20 09/25/20 06:59 06:59 06:59 Intake Total 1766.9 2301.9 30 Output Total 865 610 230 Balance 901.9 1691.9 -200 Result Diagrams: 09/24/20 03:52 09/24/20 03:52 Hospitalist ROS - Medication Medications: Active Medications Generic Name Dose Route Start Last Admin Trade Name Freq PRN Reason Stop Dose Admin Albuterol/Ipratropium 3 ml 09/22/20 03:00 09/24/20 13:15 Ipratropium/Albuterol Sulfate 3 Ml Neb NEB 3 ml [id number] BUSHRA Administration Aspirin 81 mg 09/21/20 09:00 09/24/20 09:01 Aspirin 81 Mg Enteric Coated Tablet PO 81 mg DAILY BUSHRA Administration Atorvastatin Calcium 40 mg 09/20/20 21:00 09/23/20 21:07 Atorvastatin Calcium 40 Mg Tab PO 40 mg HS BUSHRA Administration Enoxaparin Sodium 40 mg 09/20/20 09:00 09/24/20 09:02 Enoxaparin Sodium 40 Mg/0.4 Ml Syringe SC 40 mg 0900 BUSHRA Administration Famotidine 20 mg 09/19/20 21:00 09/24/20 09:02 Famotidine/Pf 20 Mg/2ml Vial SLOW IVP 20 mg Q12HR BUSHRA Administration Ceftriaxone Sodium 1 gm/ 100 mls @ 200 mls/hr 09/20/20 14:00 09/24/20 13:28 Sodium Chloride IVPB 100 mls Q24HR BUSHRA Administration Multivitamins 10 ml/ Folic 1,011.2 mls @ 75 mls/hr 09/19/20 15:14 09/23/20 19:26 Acid 1 mg/ Thiamine HCl 100 mg IV 1,011.2 mls / Dextrose/Sodium Chloride Q24HR BUSHRA Administration Dexmedetomidine HCl 400 mcg/ 100 mls @ 0 mls/hr 09/22/20 02:45 09/24/20 13:41 Sodium Chloride IVPB 100 mls INF BUSHRA Administration Protocol Titrate Fentanyl Citrate 2,000 mcg/ 100 mls @ 0 mls/hr 09/22/20 14:15 09/24/20 03:31 Sodium Chloride IV 10/22/20 14:15 100 mls INF BUSHRA Administration Protocol Per Protocol Sodium Chloride 1,000 mls @ 70 mls/hr 09/22/20 15:00 09/24/20 09:06 Normal Saline 0.9% IV 1,000 mls .[id number] BUSHRA Administration Labetalol HCl 10 mg 09/22/20 03:15 09/22/20 13:10 Labetalol Hcl 100 Mg/20 Ml Vial SLOW IVP 10 mg Q4H PRN Administration SBP Greater Than 180 Lisinopril 40 mg 09/21/20 09:00 09/24/20 09:01 Lisinopril 20 Mg Tab PO 40 mg DAILY BUSHRA Administration Lorazepam 2 mg 09/22/20 14:15 09/24/20 05:01 Lorazepam 2 Mg/Ml Vial SLOW IVP 10/22/20 14:15 2 mg Q1H PRN Administration Breakthrough agitation Methylprednisolone Sodium Succinate 40 mg 09/22/20 14:00 09/24/20 13:26 Methylprednisolone Sod Succ 40 Mg Vial IVP 40 mg Q8HR BUSHRA Administration Midazolam HCl 2 mg 09/22/20 12:38 09/22/20 12:30 Midazolam Hcl 2 Mg/2 Ml Vial IVP 2 mg WILLCALL PRN Administration INTUBATION Propofol 1,000 mg 09/22/20 14:15 09/24/20 05:19 Propofol 1,000 Mg/100 Ml Vial IV 10/22/20 14:15 1,000 mg INF PRN Administration TO ACHIEVE GOAL RASS Protocol Sertraline HCl 50 mg 09/21/20 09:00 09/24/20 09:02 Sertraline Hcl 100 Mg Tab PO 50 mg DAILY BUSHRA Administration Sodium Chloride 10 ml 09/22/20 21:00 09/24/20 09:09 Flush - Normal Saline 10 Ml Syringe IVF 10 ml Q12HR BUSHRA Administration Vecuronium [place] 10 mg 09/22/20 12:45 09/22/20 12:30 Vecuronium 10 Mg Vial IV 10 mg WILLCALL BUSHRA Administration - Exam Eye: PERRL, anicteric sclera ENT: no oropharyngeal lesions, moist mucosa Neck: supple, no JVD Heart: RRR, no murmur Respiratory: no wheezes, no rales, rhonchi Gastrointestinal: soft, non-tender, non-distended, normal bowel sounds Extremities: no cyanosis, no edema Neurological: cranial nerve grossly intact, no focal deficits Hosp A/P (1) Acute respiratory failure with hypoxia Code(s): J96.01 - ACUTE RESPIRATORY FAILURE WITH HYPOXIA Status: Acute (2) COPD exacerbation Code(s): J44.1 - CHRONIC OBSTRUCTIVE PULMONARY DISEASE W (ACUTE) EXACERBATION Status: Acute (3) Alcohol abuse Code(s): F10.10 - ALCOHOL ABUSE, UNCOMPLICATED Status: Chronic (4) HTN (hypertension) Code(s): I10 - ESSENTIAL (PRIMARY) HYPERTENSION Status: Chronic Qualifiers: (5) Tobacco abuse Code(s): Z72.0 - TOBACCO USE Status: Chronic (6) Acute metabolic encephalopathy Code(s): G93.41 - METABOLIC ENCEPHALOPATHY Status: Acute - Plan weaning per pulm advice continue asp, lipitor, cefriaxone, nebs, steroids, lisinopril, iv fluids hemostable d/w /girl friend and gave full updates, she wants to stay in the hospital when weaning/next extubation is done so she can calm him down, will let staff know about it.
[2020-09-24] MEDS: Multivitamins, Adult 10 ML, Folic Acid 1 MG, Thiamine HCl 100 MG in Dextrose 5 %-0.45 %... IV SCH (15:09)
[2020-09-24] MEDS: Atorvastatin Calcium 40 MG TAB PO SCH (20:35)
[2020-09-25] MEDS: Sodium Chloride 0.9% 1,000 ML IV SCH ×2 (02:19→15:29)
[2020-09-25 05:20] LABS: Band 13 % (5-11); Hemoglobin 10.6 g/dL (14.0-18.0); Lymphocytes 2 % (21-51); MDiff Complete? YES; Mean Corpuscular HGB CONC 32.4 g/dL (32.0-36.0); Mean Corpuscular Volume 98.9 fL (78.0-98.0); Mean Platelet Volume 8.9 fL (7.4-10.4); Monocytes 6 % (0-10); Neutrophil 79 % (42-75); Platelet Count 308 thou/uL (130-400); RBC Distribution Width 13.4 % (11.5-14.5); Red Blood Cell (RBC) Count 3.31 mill/uL (4.70-6.10); White Blood Cell (WBC) Count 23.9 thou/uL (4.8-10.8)
[2020-09-25 05:29] LABS: Anion Gap 13 mmol/L (10-20); BUN (Urea Nitrogen) 17 mg/dL (8.4-25.7); Calc. Creatinine Clearance 63 mL/min (70-130); Calcium 8.1 mg/dL (7.8-10.44); Carbon Dioxide 21 mmol/L (23-31); Chloride 110 mmol/L (98-107); Glucose 142 mg/dL (80-115); Potassium 3.8 mmol/L (3.5-5.1); Sodium 140 mmol/L (136-145)
[2020-09-25] MEDS: methylPREDNISolone Sod Succ 40 MG VIAL IVP SCH ×3 (05:49→21:51)
[2020-09-25] MEDS: Propofol 1,000 MG/100 ML VIAL IV PRN ×2 (06:04→17:55)
[2020-09-25] MEDS: Famotidine/PF 20 mg/2ml Vial SLOW IVP SCH ×2 (08:15→21:51)
[2020-09-25] MEDS: Aspirin 81 mg Enteric Coated Tablet PO SCH (08:15)
[2020-09-25] MEDS: Lisinopril 20 MG TAB PO SCH (08:15)
[2020-09-25 08:47] LABS: Actual Bicarbonate (HCO3a) 21.1 mEq/L (22-28); Base Excess (BEa) -3.1 mEq/L (-2.0 to +3.0); CO2 Tension 34.9 mmHg (35.0-45.0); Calcium, Ionized (arterial) 1.23 mmol/L (1.12-1.30); Carboxyhemoglobin (COHb) 0.3 gm% (0.0-3.0); Hemoglobin (Hb) 10.7 g/dL (14.0-18.0); O2 Tension (PaO2), arterial 82.8 mmHg (> 80.0); Potassium - ABG Lab 4.06 mmol/L (3.70-5.30); Puncture Site LRA
[2020-09-25 08:48] LABS: ALV-art Gradient 158.775 mmHg (0-20)
[2020-09-25 09:02] LABS: Phosphorus 2.7 mg/dL (2.3-4.7)
--- NOTE | 2020-09-25 09:33 | RAD ---
EXAM: Chest one view: HISTORY: Respiratory insufficiency COMPARISON: 09/24/2020 FINDINGS: Stable bilateral hyperinflation and minimal increased linear and interstitial changes. Stable life-support tubes. There is an abnormal dense opacity with some associated metal density in the region of the distal lef t mainstem bronchus evidence for an aspirated tooth. Heart size: Within normal limits. Lungs: Stable linear interstitial increased markings. No pneumothorax. IMPRESSION: Evidence for an aspirated tooth in the distal aspect of the left mainstem bronchus. Findings were discussed with Dr. Bautista at 9:20 AM CODE CR
[2020-09-25] MEDS: Lorazepam 2 MG/ML VIAL SLOW IVP PRN (09:46)
[2020-09-25] MEDS ORDERED: EPINEPHrine 1 MG/ML AMP ONE (09:55)
[2020-09-25] MEDS ORDERED: EPINEPHrine 1 MG/10 ML Abboject SYRINGE ONE (09:56)
--- NOTE | 2020-09-25 09:57 | PRG ---
DATE OF SERVICE: 09/25/2020 SUBJECTIVE: A 70-year-old gentleman, intubated in the vent. OBJECTIVE: VITAL SIGNS: Temperature 98, pulse 80, blood pressure , sats 97%. CHEST: Decreased breath sounds. No wheezing. CARDIAC: Normal S1, S2. No gallops. ABDOMEN: No masses. X-ray shows a density in the distal mainstem bronchus, could be a molar tooth. LABORATORY DATA: White count 29,000, H and H 10 and 32, and platelet count 308. PO2 is 82, pCO2 of . Lytes are normal. ASSESSMENT: Chronic obstructive pulmonary disease, respiratory failure, possibly foreign body in the left mainstem bronchus. PLAN: Consider diagnostic bronchoscopy. Otherwise, continue broad-spectrum antibiotics, neb treatments, steroids. We will follow at a distance. One-half hour of critical time. Job ID: [id number]
[2020-09-25] MEDS: Enoxaparin Sodium 40 MG/0.4 ML SYRINGE SC SCH (11:05)
[2020-09-25] MEDS: cefTRIAXone\\ROCEPHIN 1 GM in Sodium Chloride 0.9% 100 ML IVPB SCH (12:32)
--- NOTE | 2020-09-25 14:56 | EKG ---
Test Reason : Blood Pressure : / mmHG Vent. Rate : 087 BPM Atrial Rate : 087 BPM P-R Int : 132 ms QRS Dur : 092 ms QT Int : 398 ms P-R-T Axes : 086 083 089 degrees QTc Int : 478 ms Sinus rhythm with occasional Premature ventricular complexes Possible Left atrial enlargement Borderline ECG Confirmed by MACARIO FUNK DO ([id number]), food editor LELIA TRAMMELL ([id number]) on 09/25/2020 2:56:22 PM Referred By: Confirmed By:MACARIO FUNK DO
[2020-09-25] MEDS: Multivitamins, Adult 10 ML, Folic Acid 1 MG, Thiamine HCl 100 MG in Dextrose 5 %-0.45 %... IV SCH (17:11)
--- NOTE | 2020-09-25 21:22 | PDOC.HOSPP ---
- Subjective Encounter Date: 09/25/20 Encounter Time: 16:00 non-verbal Subjective: Patient seen and examined for respiratory failure. On mechanical ventilation - Objective Vital Signs & Weight: Vital Signs (12 hours) Temp Pulse Resp BP Pulse Ox 09/25/20 20:00 13 09/25/20 19:00 97.7 F 09/25/20 18:36 76 12 100 09/25/20 18:34 59 L 09/25/20 18:00 22 H 09/25/20 16:00 22 H 09/25/20 15:00 98.6 F 09/25/20 14:51 68 140/80 09/25/20 14:50 66 11 L 99 09/25/20 14:00 18 09/25/20 12:00 13 09/25/20 11:12 70 16 100 09/25/20 11:08 72 145/80 H 09/25/20 10:00 17 Weight Admit Weight 113 lb 12.16 oz Weight 113 lb 12.136 oz Most Recent Monitor Data Heart Rate from ECG 62 NIBP 111/62 NIBP BP-Mean 78 Respiration from ECG 13 SpO2 100 I&O: 09/24/20 09/25/20 09/26/20 06:59 06:59 06:59 Intake Total 2301.9 2741.1 2564 Output Total 610 1930 605 Balance 1691.9 811.1 1959 Result Diagrams: 09/27/20 03:52 09/27/20 03:52 Additional Labs: Abnormal Lab Results - Last 48 hrs 09/24/20 03:52: Sodium 135 L, Carbon Dioxide 21 L 09/24/20 03:52: WBC 21.6 H, RBC 3.59 L, Hgb 11.3 L, Hct 35.6 L, MCV 99.1 H, MCH 31.4 H, MCHC 31.7 L, Neutrophils % (Manual) 88 H 09/24/20 06:59: ABG O2 Content 17.3 L, ABG Base Excess -2.9 L, ABG Hematocrit 39.0 L, ABG Hemoglobin 13.1 L, ABG Oxyhemoglobin 93.5 L, ABG Deoxyhemoglobin 6.0 H, A-a O2 Gradient 162.300 H, Sodium 134 L 09/25/20 04:05: Chloride 110 H, Carbon Dioxide 21 L 09/25/20 04:05: WBC 23.9 H, RBC 3.31 L, Hgb 10.6 L, Hct 32.8 L, MCV 98.9 H, MCH 32.0 H, Neutrophils % (Manual) 79 H, Band Neuts % (Manual) 13 H, Lymphocytes % (Manual) 2 L 09/25/20 08:30: Bicarbonate Actual 21.1 L, ABG pCO2 34.9 L, ABG pO2 82.8 H, ABG O2 Content 14.4 L, ABG Base Excess -3.1 L, ABG Hematocrit 31.0 L, ABG Hemoglobin 10.7 L, ABG Deoxyhemoglobin 4.1 H, A-a O2 Gradient 158.775 H, Chloride 108 H Microbiology - Entire Visit 09/19/20 10:44 Venous blood - Left Arm Blood Culture - Final NO GROWTH IN 5 DAYS 09/25/20 10:00 Bronchial Washing Respiratory Culture - Preliminary 09/19/20 10:41 Venous blood - Neck Blood Culture - Final NO GROWTH IN 5 DAYS EKG Reviewed by me: Yes (Sinus rhythm on telemetry) Hospitalist ROS - Review of Systems ROS unobtainable: due to mental status - Medication Medications: Active Medications Generic Name Dose Route Start Last Admin Trade Name Freq PRN Reason Stop Dose Admin Albuterol/Ipratropium 3 ml 09/22/20 03:00 09/25/20 18:36 Ipratropium/Albuterol Sulfate 3 Ml Neb NEB 3 ml [id number] BUSHRA Administration Aspirin 81 mg 09/21/20 09:00 09/25/20 08:15 Aspirin 81 Mg Enteric Coated Tablet PO 81 mg DAILY BUSHRA Administration Atorvastatin Calcium 40 mg 09/20/20 21:00 09/24/20 20:35 Atorvastatin Calcium 40 Mg Tab PO 40 mg HS BUSHRA Administration Enoxaparin Sodium 40 mg 09/20/20 09:00 09/25/20 11:05 Enoxaparin Sodium 40 Mg/0.4 Ml Syringe SC 40 mg 0900 BUSHRA Administration Famotidine 20 mg 09/19/20 21:00 09/25/20 08:15 Famotidine/Pf 20 Mg/2ml Vial SLOW IVP 20 mg Q12HR BUSHRA Administration Ceftriaxone Sodium 1 gm/ 100 mls @ 200 mls/hr 09/20/20 14:00 09/25/20 12:32 Sodium Chloride IVPB 100 mls Q24HR BUSHRA Administration Multivitamins 10 ml/ Folic 1,011.2 mls @ 75 mls/hr 09/19/20 15:14 09/25/20 17:11 Acid 1 mg/ Thiamine HCl 100 mg IV 1,011.2 mls / Dextrose/Sodium Chloride Q24HR BUSHRA Administration Dexmedetomidine HCl 400 mcg/ 100 mls @ 0 mls/hr 09/22/20 02:45 09/25/20 17:55 Sodium Chloride IVPB 100 mls INF BUSHRA Administration Protocol Titrate Fentanyl Citrate 2,000 mcg/ 100 mls @ 0 mls/hr 09/22/20 14:15 09/24/20 23:28 Sodium Chloride IV 10/22/20 14:15 100 mls INF BUSHRA Administration Protocol Per Protocol Sodium Chloride 1,000 mls @ 70 mls/hr 09/22/20 15:00 09/25/20 15:29 Normal Saline 0.9% IV Not Given .[id number] BUSHRA Labetalol HCl 10 mg 09/22/20 03:15 09/22/20 13:10 Labetalol Hcl 100 Mg/20 Ml Vial SLOW IVP 10 mg Q4H PRN Administration SBP Greater Than 180 Lisinopril 40 mg 09/21/20 09:00 09/25/20 08:15 Lisinopril 20 Mg Tab PO 40 mg DAILY BUSHRA Administration Lorazepam 2 mg 09/22/20 14:15 09/25/20 09:46 Lorazepam 2 Mg/Ml Vial SLOW IVP 10/22/20 14:15 2 mg Q1H PRN Administration Breakthrough agitation Methylprednisolone Sodium Succinate 40 mg 09/22/20 14:00 09/25/20 13:20 Methylprednisolone Sod Succ 40 Mg Vial IVP 40 mg Q8HR BUSHRA Administration Midazolam HCl 2 mg 09/22/20 12:38 09/22/20 12:30 Midazolam Hcl 2 Mg/2 Ml Vial IVP 2 mg WILLCALL PRN Administration INTUBATION Propofol 1,000 mg 09/22/20 14:15 09/25/20 17:55 Propofol 1,000 Mg/100 Ml Vial IV 10/22/20 14:15 1,000 mg INF PRN Administration TO ACHIEVE GOAL RASS Protocol Sertraline HCl 50 mg 09/21/20 09:00 09/25/20 08:16 Sertraline Hcl 100 Mg Tab PO 50 mg DAILY BUSHRA Administration Sodium Chloride 10 ml 09/22/20 21:00 09/25/20 11:09 Flush - Normal Saline 10 Ml Syringe IVF Not Given Q12HR [facility] Vecuronium [place] 10 mg 09/22/20 12:45 09/22/20 12:30 Vecuronium 10 Mg Vial IV 10 mg WILLCALL BUSHRA Administration - Exam General - other findings: Sedated on vent Heart: RRR, no gallops Respiratory: rales, rhonchi Gastrointestinal: soft, no guarding, no rigidity Extremities: no cyanosis Neurological - other findings: Neuro/psychexam limited due to current mentation Hosp A/P - Plan DVT proph w/SCDs Acute hypoxic respiratory failure COPD exacerbation Hypertension Tobacco dependence Chronic alcoholism Hypokalemia Chronic anemia probably due to nutritional deficiency Plan: Continue supportive care. Continue steroids. Continue nebulizer treatment. Genlte hydration. Tube feeding. Continue antibiotics. A.m. labs. Chest x-ray in a.m. Add Thiamine, folic acid and multivitamin
[2020-09-25] MEDS: Atorvastatin Calcium 40 MG TAB PO SCH (21:51)
[2020-09-25] MEDS: fentaNYL Citrate/PF 2,000 MCG in Sodium Chloride 0.9% 60 ML IV SCH (23:11)
[2020-09-26] MEDS: Lorazepam 2 MG/ML VIAL SLOW IVP PRN (04:13)
[2020-09-26] MEDS: Propofol 1,000 MG/100 ML VIAL IV PRN ×3 (04:13→19:04)
[2020-09-26 06:13] LABS: Phosphorus 2.5 mg/dL (2.3-4.7)
[2020-09-26 06:19] LABS: Anion Gap 11 mmol/L (10-20); BUN (Urea Nitrogen) 21 mg/dL (8.4-25.7); Calc. Creatinine Clearance 62 mL/min (70-130); Calcium 8.6 mg/dL (7.8-10.44); Carbon Dioxide 26 mmol/L (23-31); Chloride 110 mmol/L (98-107); Glucose 116 mg/dL (80-115); Potassium 4.2 mmol/L (3.5-5.1); Sodium 143 mmol/L (136-145)
[2020-09-26] MEDS: methylPREDNISolone Sod Succ 40 MG VIAL IVP SCH ×3 (06:41→21:44)
[2020-09-26] MEDS: Sodium Chloride 0.9% 1,000 ML IV SCH ×2 (06:41→19:08)
[2020-09-26 06:56] LABS: Mean Corpuscular HGB CONC 30.7 g/dL (32.0-36.0); Mean Corpuscular Hemoglobin 30.5 pg (27.0-31.0); Mean Corpuscular Volume 99.2 fL (78.0-98.0); Mean Platelet Volume 9.3 fL (7.4-10.4); Platelet Count 307 thou/uL (130-400); RBC Distribution Width 13.6 % (11.5-14.5); Red Blood Cell (RBC) Count 3.62 mill/uL (4.70-6.10); White Blood Cell (WBC) Count 18.8 thou/uL (4.8-10.8)
[2020-09-26 07:02] LABS: Band 6 % (5-11); Lymphocytes 8 % (21-51); MDiff Complete? YES; Monocytes 7 % (0-10); Neutrophil 79 % (42-75)
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
[2020-09-26 08:59] LABS: Actual Bicarbonate (HCO3a) 24.1 mEq/L (22-28); Base Excess (BEa) 0.3 mEq/L (-2.0 to +3.0); CO2 Tension 35.5 mmHg (35.0-45.0); Calcium, Ionized (arterial) 1.24 mmol/L (1.12-1.30); Carboxyhemoglobin (COHb) 0.3 gm% (0.0-3.0); O2 Tension (PaO2), arterial 68.9 mmHg (> 80.0); Potassium - ABG Lab 4.18 mmol/L (3.70-5.30); pH, Arterial 7.45 (7.35-7.45)
[2020-09-26 09:30] LABS: Puncture Site LRA
[2020-09-26 09:31] LABS: ALV-art Gradient 171.925 mmHg (0-20)
[2020-09-26] MEDS: Lisinopril 20 MG TAB PO SCH ×2 (09:45→09:54)
[2020-09-26] MEDS: Thiamine 100 MG TAB PO SCH (09:54)
[2020-09-26] MEDS: Multivit, Therapeutic 1 TAB PO SCH (09:54)
[2020-09-26] MEDS: Folic Acid 1 MG TAB PO SCH (09:54)
[2020-09-26] MEDS: Aspirin 81 mg Enteric Coated Tablet PO SCH (09:55)
[2020-09-26] MEDS: Enoxaparin Sodium 40 MG/0.4 ML SYRINGE SC SCH (09:55)
[2020-09-26] MEDS: Famotidine/PF 20 mg/2ml Vial SLOW IVP SCH ×2 (09:56→21:44)
--- NOTE | 2020-09-26 10:04 | PRG ---
DATE OF SERVICE: 09/26/2020 SUBJECTIVE: Alvino Jacobsen remains intubated in the vent, sedated. OBJECTIVE: VITAL SIGNS: Temperature 99.6, pulse 78, blood pressure 96/57, saturations 98% on 40%, rate of 8. CHEST: No wheezing. No crackles. CARDIAC: Normal S1, S2. ABDOMEN: No masses. LABORATORY DATA: White count 18,000, hemoglobin and hematocrit 9 and 35, platelet count normal. IMAGING DATA: X-ray still shows what looks like a foreign body. ASSESSMENT: 1. Foreign body in the left mainstem bronchus status bronchoscopy. I do not see any foreign body in fact what I saw was a right lower lobe irregular mucosal polypoid lesion, which was biopsied and sent for cytology. 2. Chronic obstructive pulmonary disease. PLAN: Slow weaning. In the meantime, continue antibiotics, steroids, supportive care. One-half hour of critical care time. Job ID: [id number]
--- NOTE | 2020-09-26 12:05 | OP ---
DATE OF PROCEDURE: 09/25/2020 PROCEDURE: Bronchoscopy, diagnostic with biopsy. INDICATIONS: Foreign body in the left lung mainstem, felt to be a molar tooth. POSTBRONCHOSCOPY DIAGNOSES: 1. Right lower lobe necrotic looking mass, status post biopsy. 2. No evidence of any foreign body in the left mainstem bronchus. DESCRIPTION OF THE PROCEDURE: After informed consent, the flexible bronchoscope was then passed using an adapter and endotracheal tube. Distal trachea was visualized, which was normal. On entering the right lung, there was copious amounts of pus and secretions including the distal mainstem bronchus. The left lung also had a moderate amount of mucus and pus into the left mainstem bronchus. I did not see any foreign body. Left upper lung was visualized up to the subsegmental level including the left lower lung. Once again, no foreign body was seen. The area was lavaged with normal saline. Thereafter, the right lung was inspected. The right upper lobe was normal. Right lower lobe bronchus had rather nodular friable mucosa, which bled to touch. Multiple attempts to lavage and wash the area were unsuccessful, it bled. Therefore, a biopsy was done of the area x4. Epinephrine 1:10,000 was instilled into the area. It controlled the bleeding. The biopsies were sent to Histopathology. Washings were sent to Cytology. The patient tolerated the procedure well. Once again, 1. No foreign body in the right and left mainstem bronchus. 2. A lesion in the right lower lobe bronchus, suggestive of neoplasm, though we are awaiting Cytology. Job ID: [id number]
[2020-09-26] MEDS: cefTRIAXone\\ROCEPHIN 1 GM in Sodium Chloride 0.9% 100 ML IVPB SCH (14:20)
--- NOTE | 2020-09-26 19:11 | PDOC.HOSPP ---
- Subjective Encounter Date: 09/26/20 Encounter Time: 14:30 Subjective: Patient seen and examined for respiratory failure. On mechanical ventilation. Status post bronchoscopy yesterday. Events noted. - Objective Vital Signs & Weight: Vital Signs (12 hours) Temp Pulse Resp BP Pulse Ox 09/26/20 19:03 56 L 99/57 L 09/26/20 18:00 16 09/26/20 16:00 98.3 F 15 09/26/20 15:05 56 L 101/60 09/26/20 15:04 56 L 15 99 09/26/20 14:00 18 09/26/20 12:00 99.4 F 16 09/26/20 11:09 66 113/67 09/26/20 11:07 65 15 99 09/26/20 10:00 18 09/26/20 09:45 113/67 09/26/20 08:30 75 96/57 L 09/26/20 08:24 70 18 98 09/26/20 08:00 99.5 F 16 100 Weight Admit Weight 113 lb 12.16 oz Weight 113 lb 12.136 oz Most Recent Monitor Data Heart Rate from ECG 57 NIBP 100/56 NIBP BP-Mean 70 Respiration from ECG 16 SpO2 100 I&O: 09/25/20 09/26/20 09/27/20 06:59 06:59 06:59 Intake Total 2741.1 3888.2 1555 Output Total 1930 1790 657 Balance 811.1 2098.2 898 Result Diagrams: 09/27/20 03:52 09/27/20 03:52 Additional Labs: Abnormal Lab Results - Last 48 hrs 09/26/20 05:46: Chloride 110 H 09/26/20 05:46: WBC 18.8 H, RBC 3.62 L, Hgb 11.0 L, Hct 35.9 L, MCV 99.2 H, MCHC 30.7 L, Neutrophils % (Manual) 79 H, Lymphocytes % (Manual) 8 L 09/26/20 09:00: ABG O2 Sat (Measured) 93.0 L, ABG O2 Content 13.1 L, ABG Hematocrit 29.0 L, ABG Hemoglobin 10.0 L, ABG Oxyhemoglobin 92.7 L, ABG Methemoglobin 0.00 L, ABG Deoxyhemoglobin 7.0 H, A-a O2 Gradient 171.925 H, Chloride 111 H 09/27/20 03:52: WBC 19.3 H, RBC 3.42 L, Hgb 10.6 L, Hct 34.1 L, MCV 99.7 H, MCHC 31.0 L, Neutrophils % (Manual) 87 H, Lymphocytes % (Manual) 3 L 09/27/20 09:00: ABG pO2 92.1 H, ABG O2 Content 25.5 H, ABG Hematocrit 55.0 H, ABG Hemoglobin 18.8 H, A-a O2 Gradient 148.475 H Microbiology - Entire Visit 09/25/20 10:00 Bronchial Washing Respiratory Culture - Preliminary 09/19/20 10:44 Venous blood - Left Arm Blood Culture - Final NO GROWTH IN 5 DAYS 09/19/20 10:41 Venous blood - Neck Blood Culture - Final NO GROWTH IN 5 DAYS Radiology Reviewed by me: Yes (Chest x-ray reviewed) EKG Reviewed by me: Yes (Sinus rhythm on telemetry) Hospitalist ROS - Review of Systems ROS unobtainable: due to mental status - Medication Medications: Active Medications Generic Name Dose Route Start Last Admin Trade Name Freq PRN Reason Stop Dose Admin Albuterol/Ipratropium 3 ml 09/22/20 03:00 09/26/20 19:05 Ipratropium/Albuterol Sulfate 3 Ml Neb NEB 3 ml [id number] BUSHRA Administration Aspirin 81 mg 09/21/20 09:00 09/26/20 09:55 Aspirin 81 Mg Enteric Coated Tablet PO 81 mg DAILY BUSHRA Administration Atorvastatin Calcium 40 mg 09/20/20 21:00 09/25/20 21:51 Atorvastatin Calcium 40 Mg Tab PO 40 mg HS BUSHRA Administration Enoxaparin Sodium 40 mg 09/20/20 09:00 09/26/20 09:55 Enoxaparin Sodium 40 Mg/0.4 Ml Syringe SC 40 mg 0900 BUSHRA Administration Famotidine 20 mg 09/19/20 21:00 09/26/20 09:56 Famotidine/Pf 20 Mg/2ml Vial SLOW IVP 20 mg Q12HR BUSHRA Administration Folic Acid 1 mg 09/26/20 09:00 09/26/20 09:54 Folic Acid 1 Mg Tab PO 1 mg DAILY BUSHRA Administration Ceftriaxone Sodium 1 gm/ 100 mls @ 200 mls/hr 09/20/20 14:00 09/26/20 14:20 Sodium Chloride IVPB 100 mls Q24HR BUSHRA Administration Multivitamins 10 ml/ Folic 1,011.2 mls @ 75 mls/hr 09/19/20 15:14 09/25/20 17:11 Acid 1 mg/ Thiamine HCl 100 mg IV 1,011.2 mls / Dextrose/Sodium Chloride Q24HR BUSHRA Administration Dexmedetomidine HCl 400 mcg/ 100 mls @ 0 mls/hr 09/22/20 02:45 09/26/20 12:12 Sodium Chloride IVPB 100 mls INF BUSHRA Administration Protocol Titrate Fentanyl Citrate 2,000 mcg/ 100 mls @ 0 mls/hr 09/22/20 14:15 09/25/20 23:11 Sodium Chloride IV 10/22/20 14:15 100 mls INF BUSHRA Administration Protocol Per Protocol Sodium Chloride 1,000 mls @ 70 mls/hr 09/22/20 15:00 09/26/20 19:08 Normal Saline 0.9% IV 1,000 mls .[id number] BUSHRA Administration Labetalol HCl 10 mg 09/22/20 03:15 09/22/20 13:10 Labetalol Hcl 100 Mg/20 Ml Vial SLOW IVP 10 mg Q4H PRN Administration SBP Greater Than 180 Lisinopril 40 mg 09/21/20 09:00 09/26/20 09:45 Lisinopril 20 Mg Tab PO Not Given DAILY BUSHRA Lorazepam 2 mg 09/22/20 14:15 09/26/20 04:13 Lorazepam 2 Mg/Ml Vial SLOW IVP 10/22/20 14:15 2 mg Q1H PRN Administration Breakthrough agitation Methylprednisolone Sodium Succinate 40 mg 09/22/20 14:00 09/26/20 14:14 Methylprednisolone Sod Succ 40 Mg Vial IVP 40 mg Q8HR BUSHRA Administration Midazolam HCl 2 mg 09/22/20 12:38 09/22/20 12:30 Midazolam Hcl 2 Mg/2 Ml Vial IVP 2 mg WILLCALL PRN Administration INTUBATION Multivitamins 1 tab 09/26/20 09:00 09/26/20 09:54 Multivit, Therapeutic 1 Tab PO 1 tab DAILY BUSHRA Administration Propofol 1,000 mg 09/22/20 14:15 09/26/20 19:04 Propofol 1,000 Mg/100 Ml Vial IV 10/22/20 14:15 1,000 mg INF PRN Administration TO ACHIEVE GOAL RASS Protocol Sertraline HCl 50 mg 09/21/20 09:00 09/26/20 09:54 Sertraline Hcl 100 Mg Tab PO 50 mg DAILY BUSHRA Administration Sodium Chloride 10 ml 09/22/20 21:00 09/26/20 09:55 Flush - Normal Saline 10 Ml Syringe IVF 10 ml Q12HR BUSHRA Administration Thiamine HCl 100 mg 09/26/20 09:00 09/26/20 09:54 Thiamine 100 Mg Tab PO 100 mg DAILY BUSHRA Administration Vecuronium [place] 10 mg 09/22/20 12:45 09/22/20 12:30 Vecuronium 10 Mg Vial IV 10 mg WILLCALL BUSHRA Administration - Exam General - other findings: On mechanical ventilation Heart: RRR, no gallops Respiratory: no wheezes, rales, rhonchi Gastrointestinal: soft, non-distended Extremities: no cyanosis Neurological - other findings: Neuro/psychpatient on vent Hosp A/P - Plan DVT proph w/SCDs Acute hypoxic respiratory failure COPD exacerbation Hypertension Tobacco dependence Chronic alcoholism Hypokalemia Chronic anemia probably due to nutritional deficiency Plan: Discontinue lisinopril due to blood pressure on lower side. Continue tube feeding. Continue supportive care. Add MiraLAX and Dulcolax suppository as needed. Continue other medications as above
[2020-09-26] MEDS: Atorvastatin Calcium 40 MG TAB PO SCH (21:44)
[2020-09-26] MEDS: Multivitamins, Adult 10 ML, Folic Acid 1 MG, Thiamine HCl 100 MG in Dextrose 5 %-0.45 %... IV SCH (23:09)
[2020-09-27] MEDS: Propofol 1,000 MG/100 ML VIAL IV PRN ×3 (04:29→17:33)
[2020-09-27 04:36] LABS: Band 7 % (5-11); Hemoglobin 10.6 g/dL (14.0-18.0); Lymphocytes 3 % (21-51); MDiff Complete? YES; Mean Corpuscular Hemoglobin 30.9 pg (27.0-31.0); Mean Corpuscular Volume 99.7 fL (78.0-98.0); Mean Platelet Volume 8.9 fL (7.4-10.4); Monocytes 3 % (0-10); Neutrophil 87 % (42-75); Platelet Count 298 thou/uL (130-400); RBC Distribution Width 13.6 % (11.5-14.5); Red Blood Cell (RBC) Count 3.42 mill/uL (4.70-6.10); White Blood Cell (WBC) Count 19.3 thou/uL (4.8-10.8)
[2020-09-27 04:41] LABS: Anion Gap 13 mmol/L (10-20); BUN (Urea Nitrogen) 22 mg/dL (8.4-25.7); Calc. Creatinine Clearance 60 mL/min (70-130); Calcium 8.4 mg/dL (7.8-10.44); Carbon Dioxide 26 mmol/L (23-31); Chloride 107 mmol/L (98-107); Glucose 154 mg/dL (80-115); Potassium 4.8 mmol/L (3.5-5.1); Sodium 141 mmol/L (136-145)
[2020-09-27] MEDS: methylPREDNISolone Sod Succ 40 MG VIAL IVP SCH ×3 (06:25→21:55)
[2020-09-27 09:10] LABS: Actual Bicarbonate (HCO3a) 23.4 mEq/L (22-28); Base Excess (BEa) -0.1 mEq/L (-2.0 to +3.0); CO2 Tension 35.7 mmHg (35.0-45.0); Calcium, Ionized (arterial) 1.23 mmol/L (1.12-1.30); Carboxyhemoglobin (COHb) 0.3 gm% (0.0-3.0); Hemoglobin (Hb) 18.8 g/dL (14.0-18.0); O2 Tension (PaO2), arterial 92.1 mmHg (> 80.0); Potassium - ABG Lab 4.65 mmol/L (3.70-5.30); pH, Arterial 7.44 (7.35-7.45)
--- NOTE | 2020-09-27 09:14 | RAD ---
PORTABLE CHEST: Date: 09/27/2020 INDICATION: CCU follow-up. COMPARISON: 09/26/2020. FINDINGS: ET tube has tip at the adilene and is directed toward the right mainstem bronchus and should be slight ly retracted. NG tube is noted passing through the EG junction. Hazy infiltrate in the left lower lung unchanged. Possible hazy right lower lung infiltrate, unchange d. No new consolidation or interval change. IMPRESSION: Stable chest. POS: AGW
[2020-09-27 09:17] LABS: ALV-art Gradient 148.475 mmHg (0-20); Puncture Site RRA
[2020-09-27] MEDS: Folic Acid 1 MG TAB PO SCH (09:43)
[2020-09-27] MEDS: Multivit, Therapeutic 1 TAB PO SCH (09:43)
[2020-09-27] MEDS: Thiamine 100 MG TAB PO SCH (09:43)
[2020-09-27] MEDS: Aspirin 81 mg Enteric Coated Tablet PO SCH (09:43)
[2020-09-27] MEDS: Enoxaparin Sodium 40 MG/0.4 ML SYRINGE SC SCH (09:44)
[2020-09-27] MEDS: Famotidine/PF 20 mg/2ml Vial SLOW IVP SCH ×2 (09:44→21:54)
[2020-09-27] MEDS: Sodium Chloride 0.9% 1,000 ML IV SCH ×3 (09:45→23:17)
[2020-09-27] MEDS ORDERED: Polyethylene Glycol 3350 17 GM Packet PO PRN (10:51)
[2020-09-27] MEDS ORDERED: Bisacodyl 10 MG SUPP PR PRN (10:51)
[2020-09-27] MEDS: cefTRIAXone\\ROCEPHIN 1 GM in Sodium Chloride 0.9% 100 ML IVPB SCH ×2 (14:00→18:25)
[2020-09-27] MEDS: Lorazepam 2 MG/ML VIAL SLOW IVP PRN (17:33)
[2020-09-27] MEDS: fentaNYL Citrate/PF 2,000 MCG in Sodium Chloride 0.9% 60 ML IV SCH (18:08)
--- NOTE | 2020-09-27 19:31 | PRG ---
DATE OF SERVICE: 09/27/2020 SUBJECTIVE: Mr. Jacobsen's events over the weekend have been reviewed. Apparently, there was concern about a foreign body in the left chest. Bronchoscopy did not reveal this, but did reveal a right lung mass. He was intubated by me. All I saw was a lot of retained secretions and did not see this mass, which I am sure was obscured by the mucus. OBJECTIVE: LUNGS: Clear. HEART: Regular rhythm. ABDOMEN: Soft. I met with the and answered all of her questions and explained that he likely has lung cancer on the right. LABORATORY DATA: White count is 19.3, hemoglobin 10.6, platelets 298,000. Electrolytes are unremarkable. He is not strong enough to cough up his secretions and I truly believe he would benefit from a tracheostomy to successfully wean from ventilation. His is in agreement with this. Hopefully, we will have pathology results tomorrow and we can discuss this again. His pH is 7.44, CO2 of 35, pO2 of 92 today. He looks great when he is ventilated. This is similar to when he was discharged from the hospital recently. He went home, made it a day, he came back and had to be intubated. I extubated him, he made his day and had to be reintubated the next day. I think a tracheostomy is the best solution given the best chance for surviving this. Critical care time, 30 minutes. Job ID: [id number]
[2020-09-27] MEDS: Lisinopril 10 MG TAB PO SCH (21:54)
[2020-09-27] MEDS: Atorvastatin Calcium 40 MG TAB PO SCH (21:54)
[2020-09-28] MEDS: Propofol 1,000 MG/100 ML VIAL IV PRN ×3 (00:04→16:25)
[2020-09-28 05:19] LABS: Anion Gap 11 mmol/L (10-20); BUN (Urea Nitrogen) 21 mg/dL (8.4-25.7); Calc. Creatinine Clearance 64 mL/min (70-130); Calcium 8.1 mg/dL (7.8-10.44); Carbon Dioxide 27 mmol/L (23-31); Chloride 108 mmol/L (98-107); Glucose 190 mg/dL (80-115); Potassium 4.2 mmol/L (3.5-5.1); Sodium 142 mmol/L (136-145)
[2020-09-28 05:28] LABS: Band 2 % (5-11); Eosinophils 2 % (0-10); Hemoglobin 10.3 g/dL (14.0-18.0); Lymphocytes 12 % (21-51); MDiff Complete? YES; Mean Corpuscular HGB CONC 31.8 g/dL (32.0-36.0); Mean Corpuscular Hemoglobin 31.6 pg (27.0-31.0); Mean Corpuscular Volume 99.3 fL (78.0-98.0); Mean Platelet Volume 9.2 fL (7.4-10.4); Monocytes 4 % (0-10); Neutrophil 80 % (42-75); Platelet Count 323 thou/uL (130-400); RBC Distribution Width 13.5 % (11.5-14.5); Red Blood Cell (RBC) Count 3.27 mill/uL (4.70-6.10); Toxic Granulation SLIGHT; White Blood Cell (WBC) Count 18.8 thou/uL (4.8-10.8)
[2020-09-28] MEDS: methylPREDNISolone Sod Succ 40 MG VIAL IVP SCH ×3 (05:45→21:07)
--- NOTE | 2020-09-28 08:02 | RAD ---
EXAM: CHEST ONE VIEW HISTORY: On ventilator. Follow-up evaluation. COMPARISON: 09/27/2020 FINDINGS: The endotracheal tube has been withdrawn with tip overlying the level of the T7 vertebral body and ab ove the level of the adilene. Nasogastric tube remains in place. Cardiac silhouette and pulmonary vasculature are within normal limits. Hazy increased density is seen at the left lung base which may be related to layering pleural effusion. Similar findings but to a lesser extent are seen at the right lung base. Superimposed patchy interstitial densities are also seen at the left lung base which could be related to associated pneumonitis. Metallic density overlies the epigastric region also seen on prior exam; this was shown to represent a metallic foreign body in the subcutaneous soft tiss ues posteriorly on CTA chest on 09/19/2020. Chest is stable compared to prior exam. IMPRESSION: Stable chest.
[2020-09-28] MEDS: Famotidine/PF 20 mg/2ml Vial SLOW IVP SCH ×2 (08:49→20:11)
[2020-09-28] MEDS: Enoxaparin Sodium 40 MG/0.4 ML SYRINGE SC SCH (08:49)
[2020-09-28 08:50] LABS: Actual Bicarbonate (HCO3a) 24.6 mEq/L (22-28); Base Excess (BEa) -0.7 mEq/L (-2.0 to +3.0); CO2 Tension 43.3 mmHg (35.0-45.0); Calcium, Ionized (arterial) 1.23 mmol/L (1.12-1.30); Carboxyhemoglobin (COHb) 0.3 gm% (0.0-3.0); Hemoglobin (Hb) 11.4 g/dL (14.0-18.0); O2 Tension (PaO2), arterial 71.8 mmHg (> 80.0); Potassium - ABG Lab 4.36 mmol/L (3.70-5.30); pH, Arterial 7.37 (7.35-7.45)
[2020-09-28] MEDS: Folic Acid 1 MG TAB PO SCH (08:50)
[2020-09-28] MEDS: Thiamine 100 MG TAB PO SCH (08:50)
[2020-09-28] MEDS: Aspirin 81 mg Enteric Coated Tablet PO SCH (08:50)
[2020-09-28] MEDS: Multivit, Therapeutic 1 TAB PO SCH (08:50)
[2020-09-28] MEDS: Lisinopril 10 MG TAB PO SCH ×2 (08:50→20:11)
[2020-09-28 09:45] LABS: Puncture Site LRA
[2020-09-28 09:46] LABS: ALV-art Gradient 159.275 mmHg (0-20)
--- NOTE | 2020-09-28 10:03 | PDOC.HOSPP ---
- Subjective Encounter Date: 09/27/20 Encounter Time: 16:00 Subjective: Patient seen and examined for respiratory failure. Remains on mechanical ventilation. No overnight events. Tolerating tube feeds. - Objective Vital Signs & Weight: Vital Signs (12 hours) Temp Pulse Resp BP Pulse Ox 09/28/20 08:50 113/62 09/28/20 08:35 16 09/28/20 08:18 55 L 113/62 09/28/20 08:00 100 09/28/20 07:30 55 L 10 L 100 09/28/20 06:00 12 09/28/20 05:45 56 L 12 98 09/28/20 04:00 97.5 F L 12 09/28/20 02:40 54 L 163/88 H 09/28/20 02:00 15 09/28/20 00:00 98.7 F 12 09/27/20 22:37 63 159/83 H Weight Admit Weight 113 lb 12.16 oz Weight 113 lb 12.136 oz Most Recent Monitor Data Heart Rate from ECG 63 NIBP 117/57 NIBP BP-Mean 77 Respiration from ECG 15 SpO2 100 I&O: 09/27/20 09/28/20 09/29/20 06:59 06:59 06:59 Intake Total 3412.3 3093.8 Output Total 1143 1955 125 Balance 2269.3 1138.8 -125 Result Diagrams: 09/28/20 03:50 09/28/20 03:50 EKG Reviewed by me: Yes (Sinus rhythm on telemetry) Hospitalist ROS - Review of Systems ROS unobtainable: due to mental status - Medication Medications: Active Medications Generic Name Dose Route Start Last Admin Trade Name Freq PRN Reason Stop Dose Admin Albuterol/Ipratropium 3 ml 09/22/20 03:00 09/28/20 07:30 Ipratropium/Albuterol Sulfate 3 Ml Neb NEB 3 ml [id number] BUSHRA Administration Aspirin 81 mg 09/21/20 09:00 09/28/20 08:50 Aspirin 81 Mg Enteric Coated Tablet PO 81 mg DAILY BUSHRA Administration Atorvastatin Calcium 40 mg 09/20/20 21:00 09/27/20 21:54 Atorvastatin Calcium 40 Mg Tab PO 40 mg HS BUSHRA Administration Enoxaparin Sodium 40 mg 09/20/20 09:00 09/28/20 08:49 Enoxaparin Sodium 40 Mg/0.4 Ml Syringe SC 40 mg 0900 BUSHRA Administration Famotidine 20 mg 09/19/20 21:00 09/28/20 08:49 Famotidine/Pf 20 Mg/2ml Vial SLOW IVP 20 mg Q12HR BUSHRA Administration Folic Acid 1 mg 09/26/20 09:00 09/28/20 08:50 Folic Acid 1 Mg Tab PO 1 mg DAILY BUSHRA Administration Ceftriaxone Sodium 1 gm/ 100 mls @ 200 mls/hr 09/20/20 14:00 09/27/20 18:25 Sodium Chloride IVPB 100 mls Q24HR BUSHRA Administration Dexmedetomidine HCl 400 mcg/ 100 mls @ 0 mls/hr 09/22/20 02:45 09/28/20 02:38 Sodium Chloride IVPB 100 mls INF BUSHRA Administration Protocol Titrate Fentanyl Citrate 2,000 mcg/ 100 mls @ 0 mls/hr 09/22/20 14:15 09/27/20 18:08 Sodium Chloride IV 10/22/20 14:15 100 mls INF BUSHRA Administration Protocol Per Protocol Sodium Chloride 1,000 mls @ 70 mls/hr 09/22/20 15:00 09/27/20 23:17 Normal Saline 0.9% IV 1,000 mls .[id number] BUSHRA Administration Labetalol HCl 10 mg 09/22/20 03:15 09/22/20 13:10 Labetalol Hcl 100 Mg/20 Ml Vial SLOW IVP 10 mg Q4H PRN Administration SBP Greater Than 180 Lisinopril 10 mg 09/27/20 21:00 09/28/20 08:50 Lisinopril 10 Mg Tab PO 10 mg BID BUSHRA Administration Lorazepam 2 mg 09/22/20 14:15 09/27/20 17:33 Lorazepam 2 Mg/Ml Vial SLOW IVP 10/22/20 14:15 2 mg Q1H PRN Administration Breakthrough agitation Methylprednisolone Sodium Succinate 40 mg 09/22/20 14:00 09/28/20 05:45 Methylprednisolone Sod Succ 40 Mg Vial IVP 40 mg Q8HR BUSHRA Administration Midazolam HCl 2 mg 09/22/20 12:38 09/22/20 12:30 Midazolam Hcl 2 Mg/2 Ml Vial IVP 2 mg WILLCALL PRN Administration INTUBATION Multivitamins 1 tab 09/26/20 09:00 09/28/20 08:50 Multivit, Therapeutic 1 Tab PO 1 tab DAILY BUSHRA Administration Propofol 1,000 mg 09/22/20 14:15 09/28/20 09:45 Propofol 1,000 Mg/100 Ml Vial IV 10/22/20 14:15 1,000 mg INF PRN Administration TO ACHIEVE GOAL RASS Protocol Sertraline HCl 50 mg 09/21/20 09:00 09/28/20 08:50 Sertraline Hcl 100 Mg Tab PO 50 mg DAILY BUSHRA Administration Sodium Chloride 10 ml 09/22/20 21:00 09/28/20 09:02 Flush - Normal Saline 10 Ml Syringe IVF Not Given Q12HR BUSHRA Thiamine HCl 100 mg 09/26/20 09:00 09/28/20 08:50 Thiamine 100 Mg Tab PO 100 mg DAILY BUSHRA Administration Vecuronium [place] 10 mg 09/22/20 12:45 09/22/20 12:30 Vecuronium 10 Mg Vial IV 10 mg WILLCALL BUSHRA Administration - Exam General Appearance: ill appearing General - other findings: On mechanical ventilation Heart: RRR, no gallops, no rubs Respiratory: rales, rhonchi Gastrointestinal: soft, no guarding, no rigidity Extremities: no cyanosis Hosp A/P - Plan DVT proph w/SCDs Acute hypoxic respiratory failure COPD exacerbation Hypertension Tobacco dependence Chronic alcoholism Hypokalemia Chronic anemia probably due to nutritional deficiency Plan: Continue supportive care. Continue empiric antibiotics. Continue tube feeding. Restart lisinopril at 10 mg twice daily. Continue GI and DVT prophylaxis. A.m. labs
[2020-09-28] MEDS: cefTRIAXone\\ROCEPHIN 1 GM in Sodium Chloride 0.9% 100 ML IVPB SCH (13:42)
[2020-09-28] MEDS: Lorazepam 2 MG/ML VIAL SLOW IVP PRN ×2 (13:43→14:39)
[2020-09-28] MEDS: Sodium Chloride 0.9% 1,000 ML IV SCH ×2 (13:47→20:23)
[2020-09-28] MEDS: Vecuronium 10 MG VIAL IV SCH (14:45)
--- NOTE | 2020-09-28 15:09 | CON ---
DATE OF CONSULTATION: 09/28/2020 HISTORY OF PRESENT ILLNESS: Francisco Jacobsen is a 70-year-old male patient, who I have been asked to see regarding placement of a tracheostomy and PEG tube. The patient is COVID negative, admitted on 09/19 from the emergency room, Hospitalist Service, seen by Dr. Fenton for respiratory failure, COPD, history of coronary artery disease. He has been extubated twice and required re-intubation. It was felt necessary to have a trach and a PEG to continue care. PAST SURGICAL HISTORY: Appendectomy. ALLERGIES: NONE. SOCIAL HISTORY: The patient is , though . He has continued tobacco abuse, heavy alcohol use history. MEDICATIONS: At home: 1. Aspirin. 2. Arnuity. 3. Lisinopril. 4. Inhalers. 5. Zoloft. 6. Flonase. 7. Atorvastatin. PHYSICAL EXAMINATION: GENERAL: Patient is on the ventilator. He is sedated. VITAL SIGNS: 5 feet 6 inches, 113 pounds, 83 heart rate, 119/58. HEAD, EARS, EYES, NOSE, AND THROAT: Unremarkable. LUNGS: Clear to auscultation. No wheezing. Cardiac rhythm without murmur or gallop. CARDIAC: Regular rate and rhythm without murmur or gallop. ABDOMEN: Soft, nontender EXTREMITIES: Unremarkable. LABORATORY DATA: White count 18, hemoglobin 10. Basic metabolic profile unremarkable. Renal function normal. ASSESSMENT AND PLAN: Respiratory failure secondary to chronic obstructive pulmonary disease, requiring re-intubation twice. PLAN: PEG and trach and central line as necessary. Risks and benefits discussed. Questions answered. Family is aware. We will plan this tomorrow. We will plan placement of a central line. Job ID: [id number]
--- NOTE | 2020-09-28 15:28 | CT ---
CT THORAX NONCONTRAST: DATE: 09/28/2020 HISTORY: 70-year-old male with possible foreign body found on chest radiograph. At 3:19 PM on 09/28/2020, Dr. Liu discussed the aspirated tooth by telephone with Dr. Fenton. COMPARISON: 09/19/2020 FINDINGS: There is a tooth at the distal aspect of the left mainstem bronchus, at its bifurcation into the uppe r lobe and lower lobe bronchi. Metallic dental filling is present at the crown. There is no pulmonary consolidation, but there are new mild subtle tree-in-bud changes at the bilater al lower lobes, with one streaky region in the left lower lobe. There are bilateral small pleural effusions. Diffuse moderate to severe centrilobular emphysematous changes of both lungs. Endotracheal tube with distal tip at mid thoracic trachea. Trachea, adilene, right mainstem bronchus, and proximal and mid left mainstem bronchus, are patent and clear. Bilateral upper lobe and lower lobe major bronchi appear to be patent and clear. No pneumothorax, cardiomegaly, or mediastinal lymphadenopathy. Tube in esophagus with distal tip in distal gastric lumen. IMPRESSION: 1) aspirated tooth in the distal portion of left mainstem bronchus. 2) new small bilateral pleural effusions. 3) high-grade centrilobular emphysema
[2020-09-28] MEDS: Atorvastatin Calcium 40 MG TAB PO SCH (20:11)
--- NOTE | 2020-09-28 23:54 | PDOC.HOSPP ---
- Subjective Encounter Date: 09/28/20 Encounter Time: 14:30 non-verbal Subjective: Patient seen and examined for respiratory failure. Remains on mechanical ventilation. No other overnight events. - Objective Vital Signs & Weight: Vital Signs (12 hours) Temp Pulse Resp BP Pulse Ox 09/28/20 23:00 98.2 F 09/28/20 22:38 64 148/77 H 09/28/20 22:00 13 09/28/20 20:11 130/70 09/28/20 20:00 14 09/28/20 19:37 100 09/28/20 19:30 62 129/66 09/28/20 19:00 98.8 F 09/28/20 18:00 16 09/28/20 17:08 67 18 98 09/28/20 16:00 98.5 F 19 09/28/20 14:47 88 118/61 09/28/20 14:46 88 15 100 09/28/20 14:00 14 09/28/20 12:27 83 13 98 09/28/20 12:00 98.5 F 15 Weight Admit Weight 113 lb 12.16 oz Weight 113 lb 12.136 oz Most Recent Monitor Data Heart Rate from ECG 62 NIBP 152/73 NIBP BP-Mean 99 Respiration from ECG 23 SpO2 100 I&O: 09/27/20 09/28/20 09/29/20 06:59 06:59 06:59 Intake Total 3412.3 3093.8 120 Output Total 1143 1955 1052 Balance 2269.3 1138.8 -932 Result Diagrams: 09/29/20 03:20 09/29/20 03:20 EKG Reviewed by me: Yes (Sinus rhythm on telemetry) Hospitalist ROS - Review of Systems ROS unobtainable: due to mental status - Medication Medications: Active Medications Generic Name Dose Route Start Last Admin Trade Name Freq PRN Reason Stop Dose Admin Albuterol/Ipratropium 3 ml 09/22/20 03:00 09/28/20 22:38 Ipratropium/Albuterol Sulfate 3 Ml Neb NEB 3 ml [id number] BUSHRA Administration Aspirin 81 mg 09/21/20 09:00 09/28/20 08:50 Aspirin 81 Mg Enteric Coated Tablet PO 81 mg DAILY BUSHRA Administration Atorvastatin Calcium 40 mg 09/20/20 21:00 09/28/20 20:11 Atorvastatin Calcium 40 Mg Tab PO 40 mg HS BUSHRA Administration Enoxaparin Sodium 40 mg 09/20/20 09:00 09/28/20 08:49 Enoxaparin Sodium 40 Mg/0.4 Ml Syringe SC 40 mg 0900 BUSHRA Administration Famotidine 20 mg 09/19/20 21:00 09/28/20 20:11 Famotidine/Pf 20 Mg/2ml Vial SLOW IVP 20 mg Q12HR BUSHRA Administration Folic Acid 1 mg 09/26/20 09:00 09/28/20 08:50 Folic Acid 1 Mg Tab PO 1 mg DAILY BUSHRA Administration Ceftriaxone Sodium 1 gm/ 100 mls @ 200 mls/hr 09/20/20 14:00 09/28/20 13:42 Sodium Chloride IVPB 100 mls Q24HR BUSHRA Administration Dexmedetomidine HCl 400 mcg/ 100 mls @ 0 mls/hr 09/22/20 02:45 09/28/20 15:53 Sodium Chloride IVPB 100 mls INF BUSHRA Administration Protocol Titrate Fentanyl Citrate 2,000 mcg/ 100 mls @ 0 mls/hr 09/22/20 14:15 09/27/20 18:08 Sodium Chloride IV 10/22/20 14:15 100 mls INF BUSHRA Administration Protocol Per Protocol Sodium Chloride 1,000 mls @ 70 mls/hr 09/22/20 15:00 09/28/20 20:23 Normal Saline 0.9% IV 1,000 mls .[id number] BUSHRA Administration Labetalol HCl 10 mg 09/22/20 03:15 09/22/20 13:10 Labetalol Hcl 100 Mg/20 Ml Vial SLOW IVP 10 mg Q4H PRN Administration SBP Greater Than 180 Lisinopril 10 mg 09/27/20 21:00 09/28/20 20:11 Lisinopril 10 Mg Tab PO 10 mg BID BUSHRA Administration Lorazepam 2 mg 09/22/20 14:15 09/28/20 14:39 Lorazepam 2 Mg/Ml Vial SLOW IVP 10/22/20 14:15 2 mg Q1H PRN Administration Breakthrough agitation Methylprednisolone Sodium Succinate 40 mg 09/22/20 14:00 09/28/20 21:07 Methylprednisolone Sod Succ 40 Mg Vial IVP 40 mg Q8HR BUSHRA Administration Midazolam HCl 2 mg 09/22/20 12:38 09/22/20 12:30 Midazolam Hcl 2 Mg/2 Ml Vial IVP 2 mg WILLCALL PRN Administration INTUBATION Multivitamins 1 tab 09/26/20 09:00 09/28/20 08:50 Multivit, Therapeutic 1 Tab PO 1 tab DAILY BUSHRA Administration Propofol 1,000 mg 09/22/20 14:15 09/28/20 16:25 Propofol 1,000 Mg/100 Ml Vial IV 10/22/20 14:15 1,000 mg INF PRN Administration TO ACHIEVE GOAL RASS Protocol Sertraline HCl 50 mg 09/21/20 09:00 09/28/20 08:50 Sertraline Hcl 100 Mg Tab PO 50 mg DAILY BUSHRA Administration Sodium Chloride 10 ml 09/22/20 21:00 09/28/20 20:24 Flush - Normal Saline 10 Ml Syringe IVF 10 ml Q12HR BUSHRA Administration Thiamine HCl 100 mg 09/26/20 09:00 09/28/20 08:50 Thiamine 100 Mg Tab PO 100 mg DAILY BUSHRA Administration Vecuronium [place] 10 mg 09/22/20 12:45 09/28/20 14:45 Vecuronium 10 Mg Vial IV 10 mg WILLCALL BUSHRA Administration - Exam General Appearance: ill appearing General - other findings: On ventilator Neck: supple Heart: RRR, no gallops Respiratory: rales, rhonchi Gastrointestinal: soft, no guarding, no rigidity Extremities: no cyanosis, no clubbing Neurological - other findings: Neuro/psychunable to assess due to current men tation Hosp A/P - Plan DVT proph w/lovenox, DVT proph w/SCDs Acute hypoxic respiratory failure COPD exacerbation Hypertension Tobacco dependence Chronic alcoholism Hypokalemia Chronic anemia probably due to nutritional deficiency Plan: Tracheostomy planned. Continue empiric antibiotics. Continue tube feeding. We will continue IV steroids with nebulizer treatments. GI DVT prophylaxis. Continue current dose of lisinopril. A.m. labs. Chest x-ray in a.m.
[2020-09-29] MEDS: Propofol 1,000 MG/100 ML VIAL IV PRN ×2 (00:02→11:19)
[2020-09-29] MEDS: Sodium Chloride 0.9% 1,000 ML IV SCH ×2 (04:37→18:32)
[2020-09-29 04:47] LABS: Anion Gap 14 mmol/L (10-20); BUN (Urea Nitrogen) 20 mg/dL (8.4-25.7); Calc. Creatinine Clearance 73 mL/min (70-130); Calcium 8.3 mg/dL (7.8-10.44); Carbon Dioxide 27 mmol/L (23-31); Chloride 105 mmol/L (98-107); Glucose 124 mg/dL (80-115); Potassium 5.1 mmol/L (3.5-5.1); Sodium 141 mmol/L (136-145)
[2020-09-29 04:52] LABS: Band 11 % (5-11); Hemoglobin 9.9 g/dL (14.0-18.0); Lymphocytes 7 % (21-51); MDiff Complete? YES; Mean Corpuscular HGB CONC 32.2 g/dL (32.0-36.0); Mean Corpuscular Hemoglobin 32.1 pg (27.0-31.0); Mean Corpuscular Volume 99.7 fL (78.0-98.0); Mean Platelet Volume 8.9 fL (7.4-10.4); Monocytes 3 % (0-10); Neutrophil 79 % (42-75); Platelet Count 382 thou/uL (130-400); RBC Distribution Width 13.3 % (11.5-14.5); Red Blood Cell (RBC) Count 3.08 mill/uL (4.70-6.10); White Blood Cell (WBC) Count 18.4 thou/uL (4.8-10.8)
--- NOTE | 2020-09-29 05:48 | PRG ---
DATE OF SERVICE: 09/28/2020 SUBJECTIVE: Mr. Jacobsen remains ventilated. Still awaiting biopsy results from his bronchial lesion that was seen on bronchoscopy over the weekend. His hemodynamics remained stable. His lungs are remarkable for equal breath sounds. Heart, regular rhythm. Abdomen is soft. He still has significant secretions. I have consulted Surgery for tracheostomy and PEG. I ordered a CT of his chest to evaluate the position of what appears to be a foreign body in his left mainstem bronchus. I discussed this with Dr. Bautista, and said he absolutely saw nothing in his left mainstem bronchus or upper lobe on that side. He may need repeat bronchoscopy at some point. We will see what CT shows. Critical care time 30 min Job ID: [id number] MTDD
[2020-09-29] MEDS: methylPREDNISolone Sod Succ 40 MG VIAL IVP SCH ×3 (06:25→22:41)
[2020-09-29 07:39] LABS: Actual Bicarbonate (HCO3a) 24.5 mEq/L (22-28); Base Excess (BEa) 0.1 mEq/L (-2.0 to +3.0); CO2 Tension 38.8 mmHg (35.0-45.0); Calcium, Ionized (arterial) 1.24 mmol/L (1.12-1.30); Carboxyhemoglobin (COHb) 0.3 gm% (0.0-3.0); Hemoglobin (Hb) 11.2 g/dL (14.0-18.0); O2 Tension (PaO2), arterial 102.6 mmHg (> 80.0); Potassium - ABG Lab 4.78 mmol/L (3.70-5.30); pH, Arterial 7.42 (7.35-7.45)
[2020-09-29 07:40] LABS: Puncture Site LRA
--- NOTE | 2020-09-29 07:52 | RAD ---
EXAM: CHEST ONE VIEW HISTORY: On ventilator. Follow-up evaluation. COMPARISON: 09/28/2020 FINDINGS: Endotracheal tube and nasogastric tubes remain in place and unchanged in position. A radiopaque forei gn body (tooth) is again seen overlying the left mainstem bronchus. Cardiac silhouette and pulmonary vasculature appear to be within normal limits. There are hazy bibasilar densities most comp atible with layering bilateral pleural effusions with associated mild atelectasis. The lungs remain hyperexpanded. Most inferior aspect left lateral costophrenic angle is excluded from view. No other i nterval change. IMPRESSION: 1. Persistent radiopaque foreign body overlying left mainstem bronchus related to aspiration of a too th. 2. Endotracheal and nasogastric tubes stable in position. 3. Bilateral pleural effusions. 4. Hyperinflation of the lungs.
[2020-09-29] MEDS ORDERED: Dexamethasone 20 MG/5 ML VIAL ONE (08:35)
[2020-09-29] MEDS ORDERED: Rocuronium Bromide 10 MG/ML (10ML VIAL) ONE (08:35)
[2020-09-29] MEDS: Thiamine 100 MG TAB PO SCH (09:15)
[2020-09-29] MEDS: Folic Acid 1 MG TAB PO SCH (09:15)
[2020-09-29] MEDS: Famotidine/PF 20 mg/2ml Vial SLOW IVP SCH ×2 (09:15→20:34)
[2020-09-29] MEDS: Multivit, Therapeutic 1 TAB PO SCH (09:15)
[2020-09-29] MEDS: Aspirin 81 mg Enteric Coated Tablet PO SCH (09:15)
[2020-09-29] MEDS: Lisinopril 10 MG TAB PO SCH ×2 (09:15→22:28)
[2020-09-29] MEDS: Lorazepam 2 MG/ML VIAL SLOW IVP PRN (11:07)
[2020-09-29] MEDS: fentaNYL Citrate/PF 2,000 MCG in Sodium Chloride 0.9% 60 ML IV SCH (11:07)
[2020-09-29] MEDS ORDERED: Bupivacaine PF 0.5% 30 ML VIAL ONE (12:08)
[2020-09-29] MEDS ORDERED: EPINEPHrine 1 MG/ML AMP ONE (12:08)
[2020-09-29] MEDS ORDERED: Sodium Chloride 0.9% 10 ML ONE (12:08)
[2020-09-29] MEDS ORDERED: Midazolam HCl 2 mg/2 ml Vial ONE (12:25)
[2020-09-29] MEDS ORDERED: Fentanyl 100 MCG/2 ML VIAL ONE (12:25)
[2020-09-29] MEDS: cefTRIAXone\\ROCEPHIN 1 GM in Sodium Chloride 0.9% 100 ML IVPB SCH (12:44)
[2020-09-29] MEDS ORDERED: Benzocaine 20% Spray 60 ML CAN ONE (13:24)
--- NOTE | 2020-09-29 15:20 | RAD ---
EXAM: Portable chest PROVIDED CLINICAL HISTORY: Respiratory insufficiency COMPARISON: 09/29/2019 21.30 1:00 AM FINDINGS: Interval placement of right subclavian central line, tip of which terminates overlying the location o f RA. There is no evidence for pneumothorax. Additional significant interval change with respect to the prior examination is not apparent. IMPRESSION: As above.
--- NOTE | 2020-09-29 15:22 | OP ---
DATE OF PROCEDURE: 09/29/2020 PREOPERATIVE DIAGNOSES: 1. Chronic obstructive pulmonary disease. 2. Respiratory failure. 3. Ventilator dependency. 4. Malnutrition. 5. Dysphagia. 6. Retained foreign body in the right bronchus, tooth. 7. Poor IV access. POSTOPERATIVE DIAGNOSES: 1. Chronic obstructive pulmonary disease. 2. Respiratory failure. 3. Ventilator dependency. 4. Malnutrition. 5. Dysphagia. 6. Retained foreign body in the right bronchus, tooth. 7. Poor IV access. PROCEDURE PERFORMED: 1. Right subclavian vein triple-lumen catheter. 2. A #8 Shiley low-pressure cuffed tracheostomy tube. 3. Percutaneous endoscopic gastrostomy tube. Note, Dr. Fenton performed a bronchoscopy, retrieval of a tooth from the right bronchus during this operation. ANESTHESIA: General anesthesia, local with 0.5% Marcaine 30 mL, mixed with 1% Xylocaine with epinephrine 20 mL. DESCRIPTION OF PROCEDURE: The patient was taken to the operating room where under general anesthesia in supine position, neck, chest, and abdomen were prepared with ChloraPrep and draped in routine fashion. Right subclavian vein accessed with a trocar catheter with infraclavicular approach, threading a J-wire into the subclavian vein, removing the trocar catheter. Seldinger technique used to place a triple-lumen catheter, secured with interrupted 3-0 Prolene suture. Sterile dressing applied. Each port aspirated blood with saline rinses, flushed with saline solution. Incision was made in the anterior neck above the manubrium, carried down to skin and platysma to the strap muscles, reflecting laterally, placing 3-0 Prolene sutures on either side of the trachea, securing it with the hemostat and an air knot. Good hemostasis noted. Anterior window below the cricoid excised over 2 cartilaginous rings. Endotracheal tube identified. At this point, Dr. Fneton placed the bronchoscope through the endotracheal tube and identified the tooth and a grasped that and withdrew the endotracheal tube and I grasped the tooth, removing out the trachea through the tracheal window. Once the endotracheal tube was withdrawn, a #8 Shiley low-pressure cuffed tracheostomy tube placed and balloon inflated, connected to the ventilator. Skin approximated on either side with continuous suture of 3-0 Prolene and tracheostomy appliance secured to skin with 3-0 Prolene. Sterile dressing applied. Endoscope was placed per os under direct visualization. Using air insufflation, passed throughout the esophagus and stomach, insufflated and noting a good indentation in left medial subcostal. A stab incision was made and trocar catheter induced percutaneously, identified it within the gastric lumen, visualizing with the endoscope. Wire introduced, grasped with a snare, placed through the endoscope, grasping the wire, bringing the scope and wire out the mouth. The esophagus and stomach visualized were normal. Wire connected to the feeding tube lubricated and brought down through the mouth. The esophagus secured to the abdominal wall with a fixation device. Sterile dressings tailored to length and the feeding device was secured. The patient tolerated the procedure well. Job ID: [id number]
--- NOTE | 2020-09-29 21:15 | PDOC.HOSPP ---
- Subjective Encounter Date: 09/29/20 Encounter Time: 15:30 non-verbal Subjective: Patient seen and examined for respiratory failure. Status post tracheostomy and PEG tube placement. On mechanical ventilation - Objective Vital Signs & Weight: Vital Signs (12 hours) Temp Pulse Resp BP Pulse Ox 09/29/20 20:00 14 09/29/20 19:36 98 09/29/20 19:00 97.6 F 09/29/20 18:53 54 L 09/29/20 18:00 15 09/29/20 16:00 98.4 F 14 100 09/29/20 14:25 71 154/97 H 09/29/20 14:10 15 09/29/20 14:00 97.4 F L 09/29/20 12:00 98.6 F 16 09/29/20 11:15 67 146/80 H 09/29/20 10:00 14 09/29/20 09:15 150/76 H Weight Admit Weight 113 lb 12.16 oz Weight 113 lb 12.136 oz Most Recent Monitor Data Heart Rate from ECG 57 NIBP 141/70 NIBP BP-Mean 93 Respiration from ECG 13 SpO2 97 I&O: 09/28/20 09/29/20 09/30/20 06:59 06:59 06:59 Intake Total 3093.8 1239.8 441.2 Output Total 1955 1452 1092 Balance 1138.8 -212.2 -650.8 Result Diagrams: 09/29/20 03:20 09/29/20 03:20 Radiology Reviewed by me: Yes (Chest x-rayreviewed) EKG Reviewed by me: Yes (Sinus rhythm on telemetry) Hospitalist ROS - Review of Systems ROS unobtainable: due to mental status - Medication Medications: Active Medications Generic Name Dose Route Start Last Admin Trade Name Freq PRN Reason Stop Dose Admin Albuterol/Ipratropium 3 ml 09/29/20 10:30 09/29/20 18:52 Ipratropium/Albuterol Sulfate 3 Ml Neb NEB 3 ml [id number] BUSHRA Administration Aspirin 81 mg 09/21/20 09:00 09/29/20 09:15 Aspirin 81 Mg Enteric Coated Tablet PO 81 mg DAILY BUSHRA Administration Atorvastatin Calcium 40 mg 09/20/20 21:00 09/28/20 20:11 Atorvastatin Calcium 40 Mg Tab PO 40 mg HS BUSHRA Administration Enoxaparin Sodium 40 mg 09/20/20 09:00 09/28/20 08:49 Enoxaparin Sodium 40 Mg/0.4 Ml Syringe SC 40 mg 0900 BUSHRA Administration Famotidine 20 mg 09/19/20 21:00 09/29/20 20:34 Famotidine/Pf 20 Mg/2ml Vial SLOW IVP 20 mg Q12HR BUSHRA Administration Folic Acid 1 mg 09/26/20 09:00 09/29/20 09:15 Folic Acid 1 Mg Tab PO 1 mg DAILY BUSHRA Administration Ceftriaxone Sodium 1 gm/ 100 mls @ 200 mls/hr 09/20/20 14:00 09/29/20 12:44 Sodium Chloride IVPB 100 mls Q24HR BUSHRA Administration Dexmedetomidine HCl 400 mcg/ 100 mls @ 0 mls/hr 09/22/20 02:45 09/29/20 15:17 Sodium Chloride IVPB 100 mls INF BUSHRA Administration Protocol Titrate Fentanyl Citrate 2,000 mcg/ 100 mls @ 0 mls/hr 09/22/20 14:15 09/29/20 11:07 Sodium Chloride IV 10/22/20 14:15 100 mls INF BUSHRA Administration Protocol Per Protocol Sodium Chloride 1,000 mls @ 70 mls/hr 09/22/20 15:00 09/29/20 18:32 Normal Saline 0.9% IV 1,000 mls .[id number] BUSHRA Administration Labetalol HCl 10 mg 09/22/20 03:15 09/22/20 13:10 Labetalol Hcl 100 Mg/20 Ml Vial SLOW IVP 10 mg Q4H PRN Administration SBP Greater Than 180 Lisinopril 10 mg 09/27/20 21:00 09/29/20 09:15 Lisinopril 10 Mg Tab PO 10 mg BID BUSHRA Administration Lorazepam 2 mg 09/22/20 14:15 09/29/20 11:07 Lorazepam 2 Mg/Ml Vial SLOW IVP 10/22/20 14:15 2 mg Q1H PRN Administration Breakthrough agitation Methylprednisolone Sodium Succinate 40 mg 09/22/20 14:00 09/29/20 14:25 Methylprednisolone Sod Succ 40 Mg Vial IVP 40 mg Q8HR BUSHRA Administration Midazolam HCl 2 mg 09/22/20 12:38 09/22/20 12:30 Midazolam Hcl 2 Mg/2 Ml Vial IVP 2 mg WILLCALL PRN Administration INTUBATION Multivitamins 1 tab 09/26/20 09:00 09/29/20 09:15 Multivit, Therapeutic 1 Tab PO 1 tab DAILY BUSHRA Administration Propofol 1,000 mg 09/22/20 14:15 09/29/20 11:19 Propofol 1,000 Mg/100 Ml Vial IV 10/22/20 14:15 1,000 mg INF PRN Administration TO ACHIEVE GOAL RASS Protocol Sertraline HCl 50 mg 09/21/20 09:00 09/29/20 09:15 Sertraline Hcl 100 Mg Tab PO 50 mg DAILY BUSHRA Administration Sodium Chloride 10 ml 09/22/20 21:00 09/29/20 09:00 Flush - Normal Saline 10 Ml Syringe IVF Not Given Q12HR BUSHRA Thiamine HCl 100 mg 09/26/20 09:00 09/29/20 09:15 Thiamine 100 Mg Tab PO 100 mg DAILY BUSHRA Administration Vecuronium [place] 10 mg 09/22/20 12:45 09/28/20 14:45 Vecuronium 10 Mg Vial IV 10 mg WILLCALL BUSHRA Administration - Exam General Appearance: ill appearing General - other findings: On mechanical ventilation Heart: no gallops, no rubs Respiratory: no wheezes Respiratory - other findings: Coarse breath sounds bilaterally Gastrointestinal: soft, no guarding, no rigidity Gastrointestinal - other findings: PEG tube noted Neurological - other findings: Neuro/psychunable to assess due to current mentation Hosp A/P - Plan DVT proph w/SCDs Acute hypoxic respiratory failure COPD exacerbation Hypertension Tobacco dependence Chronic alcoholism Hypokalemia Chronic anemia probably due to nutritional deficiency S/p tracheostomy/PEG1/6 Retained foreign body in the right bronchusstatus post removal09/29 Plan: S/p trach/PEG/bronchoscopy today. Will initiate PEG tube feeding once cleared by general surgery. Continue supportive care. On mechanical ventilation. Continue nebulizer treatments. On IV steroids. Continue GI prophylaxis. Lovenox on hold due to above procedures. Continue other medications as above.
[2020-09-29] MEDS: Atorvastatin Calcium 40 MG TAB PO SCH (22:28)
[2020-09-30 05:32] LABS: Anion Gap 13 mmol/L (10-20); BUN (Urea Nitrogen) 21 mg/dL (8.4-25.7); Calc. Creatinine Clearance 73 mL/min (70-130); Calcium 8.4 mg/dL (7.8-10.44); Carbon Dioxide 27 mmol/L (23-31); Chloride 104 mmol/L (98-107); Glucose 142 mg/dL (80-115); Potassium 4.7 mmol/L (3.5-5.1); Sodium 139 mmol/L (136-145)
[2020-09-30 05:42] LABS: Band 3 % (5-11); Hemoglobin 11.3 g/dL (14.0-18.0); MDiff Complete? YES; Mean Corpuscular HGB CONC 32.1 g/dL (32.0-36.0); Mean Corpuscular Hemoglobin 31.9 pg (27.0-31.0); Mean Corpuscular Volume 99.5 fL (78.0-98.0); Mean Platelet Volume 8.9 fL (7.4-10.4); Monocytes 5 % (0-10); Neutrophil 92 % (42-75); Platelet Count 384 thou/uL (130-400); RBC Distribution Width 13.3 % (11.5-14.5); Red Blood Cell (RBC) Count 3.55 mill/uL (4.70-6.10); White Blood Cell (WBC) Count 21.4 thou/uL (4.8-10.8)
[2020-09-30] MEDS: methylPREDNISolone Sod Succ 40 MG VIAL IVP SCH ×3 (05:56→21:10)
[2020-09-30] MEDS: Sodium Chloride 0.9% 1,000 ML IV SCH ×3 (05:56→20:18)
[2020-09-30] MEDS: Labetalol HCl 100 MG/20 ML VIAL SLOW IVP PRN (05:58)
[2020-09-30 07:05] LABS: Actual Bicarbonate (HCO3a) 25.2 mEq/L (22-28); CO2 Tension 34.6 mmHg (35.0-45.0); Carboxyhemoglobin (COHb) 0.1 gm% (0.0-3.0); Hemoglobin (Hb) 12.1 g/dL (14.0-18.0); pH, Arterial 7.48 (7.35-7.45)
[2020-09-30 07:34] LABS: Puncture Site RRA
[2020-09-30] MEDS: Lisinopril 10 MG TAB PO SCH ×2 (09:11→21:11)
[2020-09-30] MEDS: Aspirin 81 mg Enteric Coated Tablet PO SCH (09:11)
[2020-09-30] MEDS: Thiamine 100 MG TAB PO SCH (09:11)
[2020-09-30] MEDS: Folic Acid 1 MG TAB PO SCH (09:11)
[2020-09-30] MEDS: Famotidine/PF 20 mg/2ml Vial SLOW IVP SCH ×2 (09:12→21:10)
[2020-09-30] MEDS: Enoxaparin Sodium 40 MG/0.4 ML SYRINGE SC SCH (09:12)
[2020-09-30] MEDS: Multivit, Therapeutic 1 TAB PO SCH (09:12)
[2020-09-30] MEDS: cefTRIAXone\\ROCEPHIN 1 GM in Sodium Chloride 0.9% 100 ML IVPB SCH (13:16)
--- NOTE | 2020-09-30 13:45 | PRG ---
DATE OF SERVICE: Mr. Jacobsen is doing well today after tracheostomy and PEG tube. Abdomen is soft and nontender. He is tolerating his tube feedings. Tracheostomy site has minimal bleeding, but dressings are dry at this time. At this point, I will see him as needed. Please call if necessary. Job ID: [id number]
--- NOTE | 2020-09-30 15:35 | PRG ---
DATE OF SERVICE: 09/30/2020 SUBJECTIVE: Francisco Jacobsen would make eye contact, I guide him to hold up one finger. OBJECTIVE: VITAL SIGNS: Blood pressure 163/91, respiratory rate is 20, heart rate is 102. We have significantly decreased his ventilatory support today. Now, he has tracheostomy. LUNGS: Clear. HEART: Regular rhythm. ABDOMEN: Soft. LABORATORY DATA: White count 21.4, hemoglobin 11.3, and platelets 384. Electrolytes are normal. PH 7.48, CO2 of 34, pO2 of 70. IMPRESSION: 1. Respiratory failure with chronic obstructive pulmonary disease exacerbation secondary to inability to clear secretions. 2. Aspirated tooth. Since it was a molar, would be unlikely to be related to intubation. I suspect between the time, he was extubated and the time he is reintubated the next day. One of his back teeth fell out and he just aspirated it while he was sleeping. In any event, this was successfully removed yesterday. He still had copious secretions. With regard to the biopsies that were done, they were all benign. He may benefit from a repeat fiberoptic bronchoscopy at a later date, but for now, we will focus on weaning him from mechanical ventilation. Critical care time 30 min. Job ID: [id number] MTDD
--- NOTE | 2020-09-30 20:39 | PDOC.HOSPP ---
- Subjective Encounter Date: 09/30/20 Encounter Time: 14:00 non-verbal Subjective: Patient seen and examined for respiratory failure. Remains on mechanical ventilation. No overnight events. Tolerating tube feeding - Objective Vital Signs & Weight: Vital Signs (12 hours) Pulse Pulse Pulse Resp BP BP BP 09/30/20 20:00 16 09/30/20 19:34 99 15 09/30/20 19:30 88 09/30/20 18:00 16 09/30/20 16:00 17 09/30/20 14:48 102 H 20 09/30/20 14:45 107 H 113/61 09/30/20 14:00 14 09/30/20 12:03 87 116 H 127/66 149/78 H 09/30/20 12:00 20 09/30/20 11:15 84 19 09/30/20 11:10 84 110/61 09/30/20 10:00 17 09/30/20 09:16 75 78 129/70 128/65 09/30/20 09:11 141/75 H Pulse Ox Pulse Ox Pulse Ox 09/30/20 20:00 09/30/20 19:34 100 09/30/20 19:30 09/30/20 18:00 09/30/20 16:00 09/30/20 14:48 96 09/30/20 14:45 09/30/20 14:00 09/30/20 12:03 96 98 09/30/20 12:00 09/30/20 11:15 95 09/30/20 11:10 09/30/20 10:00 09/30/20 09:16 100 100 09/30/20 09:11 Weight Admit Weight 113 lb 12.16 oz Weight 113 lb 12.136 oz Most Recent Monitor Data Heart Rate from ECG 81 NIBP 136/75 NIBP BP-Mean 95 Respiration from ECG 12 SpO2 100 I&O: 09/29/20 09/30/20 10/01/20 06:59 06:59 06:59 Intake Total 1239.8 1705.3 1225.9 Output Total 1452 1932 1875 Balance -212.2 -226.7 -649.1 Result Diagrams: 09/30/20 03:15 09/30/20 03:15 Additional Labs: Abnormal Lab Results - Last 48 hrs 09/29/20 03:20: WBC 18.4 H, RBC 3.08 L, Hgb 9.9 L, Hct 30.7 L, MCV 99.7 H, MCH 32.1 H, Neutrophils % (Manual) 79 H, Lymphocytes % (Manual) 7 L 09/29/20 07:30: ABG pO2 102.6 H, ABG O2 Content 15.4 L, ABG Hematocrit 33.0 L, ABG Hemoglobin 11.2 L, A-a O2 Gradient 134.100 H 09/30/20 03:15: WBC 21.4 H, RBC 3.55 L, Hgb 11.3 L, Hct 35.3 L, MCV 99.5 H, MCH 31.9 H, Neutrophils % (Manual) 92 H, Band Neuts % (Manual) 3 L 09/30/20 06:40: ABG pH 7.48 H, ABG pCO2 34.6 L, ABG O2 Content 16.0 L, ABG Hematocrit 36.0 L, ABG Hemoglobin 12.1 L, ABG Oxyhemoglobin 93.9 L, ABG Deox yhemoglobin 5.7 H, A-a O2 Gradient 171.950 H, Chloride 107 H Microbiology - Entire Visit 09/25/20 10:00 Bronchial Washing Respiratory Culture - Final 09/19/20 10:44 Venous blood - Left Arm Blood Culture - Final NO GROWTH IN 5 DAYS 09/19/20 10:41 Venous blood - Neck Blood Culture - Final NO GROWTH IN 5 DAYS EKG Reviewed by me: Yes (Sinus rhythm on telemetry) Hospitalist ROS - Review of Systems ROS unobtainable: due to mental status - Medication Medications: Active Medications Generic Name Dose Route Start Last Admin Trade Name Freq PRN Reason Stop Dose Admin Albuterol/Ipratropium 3 ml 09/29/20 10:30 09/30/20 19:34 Ipratropium/Albuterol Sulfate 3 Ml Neb NEB 3 ml [id number] BUSHRA Administration Aspirin 81 mg 09/21/20 09:00 09/30/20 09:11 Aspirin 81 Mg Enteric Coated Tablet PO 81 mg DAILY BUSHRA Administration Atorvastatin Calcium 40 mg 09/20/20 21:00 09/29/20 22:28 Atorvastatin Calcium 40 Mg Tab PO 40 mg HS BUSHRA Administration Enoxaparin Sodium 40 mg 09/20/20 09:00 09/30/20 09:12 Enoxaparin Sodium 40 Mg/0.4 Ml Syringe SC 40 mg 0900 BUSHRA Administration Famotidine 20 mg 09/19/20 21:00 09/30/20 09:12 Famotidine/Pf 20 Mg/2ml Vial SLOW IVP 20 mg Q12HR BUSHRA Administration Folic Acid 1 mg 09/26/20 09:00 09/30/20 09:11 Folic Acid 1 Mg Tab PO 1 mg DAILY BUSHRA Administration Ceftriaxone Sodium 1 gm/ 100 mls @ 200 mls/hr 09/20/20 14:00 09/30/20 13:16 Sodium Chloride IVPB 100 mls Q24HR BUSHRA Administration Dexmedetomidine HCl 400 mcg/ 100 mls @ 0 mls/hr 09/22/20 02:45 09/30/20 11:56 Sodium Chloride IVPB 100 mls INF BUSHRA Administration Protocol Titrate Fentanyl Citrate 2,000 mcg/ 100 mls @ 0 mls/hr 09/22/20 14:15 09/29/20 11:07 Sodium Chloride IV 10/22/20 14:15 100 mls INF BUSHRA Administration Protocol Per Protocol Sodium Chloride 1,000 mls @ 70 mls/hr 09/22/20 15:00 09/30/20 20:18 Normal Saline 0.9% IV 1,000 mls .[id number] BUSHRA Administration Labetalol HCl 10 mg 09/22/20 03:15 09/30/20 05:58 Labetalol Hcl 100 Mg/20 Ml Vial SLOW IVP 10 mg Q4H PRN Administration SBP Greater Than 180 Lisinopril 10 mg 09/27/20 21:00 09/30/20 09:11 Lisinopril 10 Mg Tab PO 10 mg BID BUSHRA Administration Lorazepam 2 mg 09/22/20 14:15 09/29/20 11:07 Lorazepam 2 Mg/Ml Vial SLOW IVP 10/22/20 14:15 2 mg Q1H PRN Administration Breakthrough agitation Methylprednisolone Sodium Succinate 40 mg 09/22/20 14:00 09/30/20 13:16 Methylprednisolone Sod Succ 40 Mg Vial IVP 40 mg Q8HR BUSHRA Administration Midazolam HCl 2 mg 09/22/20 12:38 09/22/20 12:30 Midazolam Hcl 2 Mg/2 Ml Vial IVP 2 mg WILLCALL PRN Administration INTUBATION Morphine Sulfate 2 mg 09/22/20 14:15 09/30/20 13:50 Morphine 2 Mg/Ml Vial SLOW IVP 10/22/20 14:15 2 mg Q1H PRN Administration Breakthrough Pain/Agitation Multivitamins 1 tab 09/26/20 09:00 09/30/20 09:12 Multivit, Therapeutic 1 Tab PO 1 tab DAILY BUSHRA Administration Propofol 1,000 mg 09/22/20 14:15 09/29/20 11:19 Propofol 1,000 Mg/100 Ml Vial IV 10/22/20 14:15 1,000 mg INF PRN Administration TO ACHIEVE GOAL RASS Protocol Sertraline HCl 50 mg 09/21/20 09:00 09/30/20 09:12 Sertraline Hcl 100 Mg Tab PO 50 mg DAILY BUSHRA Administration Sodium Chloride 10 ml 09/22/20 21:00 09/30/20 09:12 Flush - Normal Saline 10 Ml Syringe IVF 10 ml Q12HR BUSHRA Administration Thiamine HCl 100 mg 09/26/20 09:00 09/30/20 09:11 Thiamine 100 Mg Tab PO 100 mg DAILY BUSHRA Administration Vecuronium [place] 10 mg 09/22/20 12:45 09/28/20 14:45 Vecuronium 10 Mg Vial IV 10 mg WILLCALL BUSHRA Administration - Exam General Appearance: ill appearing Heart: RRR, no gallops Respiratory: rales, rhonchi Gastrointestinal: soft, no guarding, no rigidity Extremities: no cyanosis, no clubbing Neurological - other findings: Neuro/psychpatient on mechanical ventilation Hosp A/P - Plan DVT proph w/SCDs Acute hypoxic respiratory failure S/p trach/PEG on 09/29 COPD exacerbation Hypertension Tobacco dependence Chronic alcoholism Hypokalemia Chronic anemia probably due to nutritional deficiency S/p tracheostomy/PEG09/29 Retained foreign body in the right bronchusstatus post removal09/29 Plan: Continue supportive care. Continue tube feeding. On IV steroids. Continue GI and DVT prophylaxis. A.m. labs. Continue aspirin, lisinopril and Lipitor continue other medications as above
[2020-09-30] MEDS: Atorvastatin Calcium 40 MG TAB PO SCH (21:11)
[2020-10-01 04:58] LABS: Band 6 % (5-11); Hemoglobin 10.2 g/dL (14.0-18.0); Lymphocytes 1 % (21-51); MDiff Complete? YES; Mean Corpuscular HGB CONC 31.8 g/dL (32.0-36.0); Mean Corpuscular Hemoglobin 31.3 pg (27.0-31.0); Mean Corpuscular Volume 98.6 fL (78.0-98.0); Monocytes 10 % (0-10); Neutrophil 83 % (42-75); Platelet Count 344 thou/uL (130-400); Platelet Morphology Comment Appears Adequate; RBC Distribution Width 13.2 % (11.5-14.5); Red Blood Cell (RBC) Count 3.26 mill/uL (4.70-6.10); White Blood Cell (WBC) Count 20.6 thou/uL (4.8-10.8)
[2020-10-01 04:59] LABS: Anion Gap 11 mmol/L (10-20); BUN (Urea Nitrogen) 19 mg/dL (8.4-25.7); Calc. Creatinine Clearance 71 mL/min (70-130); Calcium 8.2 mg/dL (7.8-10.44); Carbon Dioxide 29 mmol/L (23-31); Chloride 106 mmol/L (98-107); Glucose 136 mg/dL (80-115); Potassium 4.1 mmol/L (3.5-5.1); Sodium 142 mmol/L (136-145)
[2020-10-01] MEDS: methylPREDNISolone Sod Succ 40 MG VIAL IVP SCH ×3 (08:02→20:49)
[2020-10-01] MEDS: Famotidine/PF 20 mg/2ml Vial SLOW IVP SCH (08:02)
[2020-10-01] MEDS: Enoxaparin Sodium 40 MG/0.4 ML SYRINGE SC SCH (08:02)
[2020-10-01] MEDS: Aspirin 81 mg Enteric Coated Tablet PO SCH (08:03)
[2020-10-01] MEDS: Folic Acid 1 MG TAB PO SCH (08:03)
[2020-10-01] MEDS: Multivit, Therapeutic 1 TAB PO SCH (08:03)
[2020-10-01] MEDS: Thiamine 100 MG TAB PO SCH (08:03)
[2020-10-01] MEDS: Lisinopril 10 MG TAB PO SCH ×2 (08:04→20:48)
--- NOTE | 2020-10-01 12:50 | PRG ---
DATE OF SERVICE: 09/29/2020 SUBJECTIVE: Mr. Jacobsen remains hemodynamically stable overnight. OBJECTIVE: VITAL SIGNS: His respiratory rate is 14, oximetry is 98, blood pressure 141/70. This evening, heart rate is in the 60s. LUNGS: Clear. HEART: Regular rhythm. ABDOMEN: Soft. LABORATORY DATA: White count is 18.4, hemoglobin 9.9, platelets 382. Electrolytes are unremarkable. Job ID: [id number]
--- NOTE | 2020-10-01 12:51 | OP ---
DATE OF PROCEDURE: 09/29/2020 DESCRIPTION OF PROCEDURE: He was taken to the operating room for tracheostomy today. Consent was obtained for bronchoscopy for attempted retrieval of tooth seen on CAT scan. Once he was sedated, tracheostomy incision had been made in the airway, which had been prepped by Dr. Scruggs. Bronchoscope was introduced through the endotracheal tube, which was below the tracheostomy incision. The left lower lobe was entered. The tooth was covered with mucus. It actually had the appearance of yellow mucus. I was able to suction enough mucus off it to see foundation of tooth which, surprisingly, I was able to grasp with some alligator forceps. The tooth was pulled back to the bronchoscope. The bronchoscope and the tooth were withdrawn to a point where Dr. Scruggs could visualize this through the opening for the tracheostomy and the tooth was grasped with forceps and removed. The bronchoscope was then removed. The tracheostomy tube was then placed by Dr. Scruggs. The procedure was tolerated well. There was no hypoxemia during the procedure, vital sign instability. Hopefully, we can begin the weaning process in the morning. Job ID: [id number]
[2020-10-01] MEDS: Sodium Chloride 0.9% 1,000 ML IV SCH (13:06)
--- NOTE | 2020-10-01 17:33 | PRG ---
DATE OF SERVICE: 10/01/2020 SUBJECTIVE: Mr. Jacobsen is hemodynamically doing well. OBJECTIVE: VITAL SIGNS: His blood pressure is in 170s, heart rates in 90s, respiratory rates in the teens. GENERAL: He is more awake and alert, would follow commands today. LUNGS: Clear. HEART: Regular rhythm. ABDOMEN: Soft. LABORATORY DATA: White count 20.6, hemoglobin 10.2, platelets 344. Electrolytes are unremarkable. IMPRESSION: Advanced obstructive lung disease, now with a tracheostomy. He had extraction of a molar. I really cannot understand how a molar got down into his windpipe unless during that 24 hours he was grinding his teeth and the molar ended up throat and he aspirated this. Obviously with fiberoptic intubation, we do not get near . In any event, that problem is behind this. If he is stable overnight, he can move out of Critical Care Unit. He is a candidate to go to a long-term acute care facility if beds are available in my opinion. Critical care time 30 min. Job ID: [id number] MTDD
[2020-10-01] MEDS: Famotidine 20 MG TAB PO SCH (20:49)
[2020-10-01] MEDS: Atorvastatin Calcium 40 MG TAB PO SCH (20:49)
[2020-10-02 04:51] LABS: Anion Gap 12 mmol/L (10-20); BUN (Urea Nitrogen) 15 mg/dL (8.4-25.7); Calc. Creatinine Clearance 80 mL/min (70-130); Calcium 8.7 mg/dL (7.8-10.44); Carbon Dioxide 30 mmol/L (23-31); Chloride 102 mmol/L (98-107); Glucose 135 mg/dL (80-115); Potassium 3.9 mmol/L (3.5-5.1); Sodium 140 mmol/L (136-145)
[2020-10-02 05:00] LABS: Band 1 % (5-11); Hemoglobin 10.2 g/dL (14.0-18.0); Lymphocytes 6 % (21-51); MDiff Complete? YES; Mean Corpuscular HGB CONC 32.7 g/dL (32.0-36.0); Mean Corpuscular Hemoglobin 31.5 pg (27.0-31.0); Mean Corpuscular Volume 96.4 fL (78.0-98.0); Mean Platelet Volume 8.9 fL (7.4-10.4); Neutrophil 93 % (42-75); Platelet Count 385 thou/uL (130-400); Platelet Morphology Comment Appears Adequate; RBC Distribution Width 13.3 % (11.5-14.5); RBC Morphology Normal; Red Blood Cell (RBC) Count 3.22 mill/uL (4.70-6.10); Toxic Granulation MODERATE; White Blood Cell (WBC) Count 19.4 thou/uL (4.8-10.8)
[2020-10-02] MEDS: methylPREDNISolone Sod Succ 40 MG VIAL IVP SCH ×3 (05:28→21:38)
[2020-10-02] MEDS: Sodium Chloride 0.9% 1,000 ML IV SCH ×3 (05:29→19:27)
--- NOTE | 2020-10-02 09:27 | PDOC.HOSPP ---
- Subjective Encounter Date: 10/01/20 Encounter Time: 14:00 Subjective: Patient seen and examined for respiratory failure. No overnight events. - Objective Vital Signs & Weight: Vital Signs (12 hours) Pulse Resp Pulse Ox 10/02/20 08:13 85 21 H 100 10/02/20 08:00 100 10/02/20 02:55 100 10/02/20 02:54 88 20 100 10/01/20 23:05 85 20 100 Weight Admit Weight 113 lb 12.16 oz Weight 113 lb 12.136 oz Most Recent Monitor Data Heart Rate from ECG 77 NIBP 161/90 NIBP BP-Mean 113 Respiration from ECG 26 SpO2 100 I&O: 10/01/20 10/02/20 10/03/20 06:59 06:59 06:59 Intake Total 1315.9 2708 Output Total 2825 3865 300 Balance -1509.1 -1157 -300 Result Diagrams: 10/02/20 03:30 10/02/20 03:30 Additional Labs: Abnormal Lab Results - Last 48 hrs 10/01/20 03:20: WBC 20.6 H, RBC 3.26 L, Hgb 10.2 L, Hct 32.2 L, MCV 98.6 H, MCH 31.3 H, MCHC 31.8 L, Neutrophils % (Manual) 83 H, Lymphocytes % (Manual) 1 L 10/02/20 03:30: Creatinine 0.64 L Microbiology - Entire Visit 09/25/20 10:00 Bronchial Washing Respiratory Culture - Final 09/19/20 10:44 Venous blood - Left Arm Blood Culture - Final NO GROWTH IN 5 DAYS 09/19/20 10:41 Venous blood - Neck Blood Culture - Final NO GROWTH IN 5 DAYS EKG Reviewed by me: Yes (Sinus rhythm on telemetry) Hospitalist ROS - Review of Systems Cardiovascular: denies: chest pain, palpitations, orthopnea, paroxysmal noc. dyspnea, edema, light headedness, other Gastrointestinal: denies: nausea, vomiting, abdominal pain, diarrhea, c onstipation, melena, hematochezia, other - Medication Medications: Active Medications Generic Name Dose Route Start Last Admin Trade Name Freq PRN Reason Stop Dose Admin Albuterol/Ipratropium 3 ml 09/29/20 10:30 10/02/20 08:13 Ipratropium/Albuterol Sulfate 3 Ml Neb NEB 3 ml [id number] BUSHRA Administration Atorvastatin Calcium 40 mg 09/20/20 21:00 10/01/20 20:49 Atorvastatin Calcium 40 Mg Tab PO 40 mg HS BUSHRA Administration Enoxaparin Sodium 40 mg 09/20/20 09:00 10/01/20 08:02 Enoxaparin Sodium 40 Mg/0.4 Ml Syringe SC 40 mg 0900 BUSHRA Administration Famotidine 20 mg 10/01/20 21:00 10/01/20 20:49 Famotidine 20 Mg Tab PO 20 mg Q12HR BUSHRA Administration Folic Acid 1 mg 09/26/20 09:00 10/01/20 08:03 Folic Acid 1 Mg Tab PO 1 mg DAILY BUSHRA Administration Dexmedetomidine HCl 400 mcg/ 100 mls @ 0 mls/hr 09/22/20 02:45 10/01/20 23:17 Sodium Chloride IVPB 100 mls INF BUSHRA Administration Protocol Titrate Fentanyl Citrate 2,000 mcg/ 100 mls @ 0 mls/hr 09/22/20 14:15 09/29/20 11:07 Sodium Chloride IV 10/22/20 14:15 100 mls INF BUSHRA Administration Protocol Per Protocol Sodium Chloride 1,000 mls @ 70 mls/hr 09/22/20 15:00 10/02/20 05:29 Normal Saline 0.9% IV 1,000 mls .[id number] BUSHRA Administration Labetalol HCl 10 mg 09/22/20 03:15 09/30/20 05:58 Labetalol Hcl 100 Mg/20 Ml Vial SLOW IVP 10 mg Q4H PRN Administration SBP Greater Than 180 Lisinopril 10 mg 09/27/20 21:00 10/01/20 20:48 Lisinopril 10 Mg Tab PO 10 mg BID BUSHRA Administration Lorazepam 2 mg 09/22/20 14:15 09/29/20 11:07 Lorazepam 2 Mg/Ml Vial SLOW IVP 10/22/20 14:15 2 mg Q1H PRN Administration Breakthrough agitation Methylprednisolone Sodium Succinate 40 mg 09/22/20 14:00 10/02/20 05:28 Methylprednisolone Sod Succ 40 Mg Vial IVP 40 mg Q8HR BUSHRA Administration Midazolam HCl 2 mg 09/22/20 12:38 09/22/20 12:30 Midazolam Hcl 2 Mg/2 Ml Vial IVP 2 mg WILLCALL PRN Administration INTUBATION Morphine Sulfate 2 mg 09/22/20 14:15 09/30/20 13:50 Morphine 2 Mg/Ml Vial SLOW IVP 10/22/20 14:15 2 mg Q1H PRN Administration Breakthrough Pain/Agitation Multivitamins 1 tab 09/26/20 09:00 10/01/20 08:03 Multivit, Therapeutic 1 Tab PO 1 tab DAILY BUSHRA Administration Propofol 1,000 mg 09/22/20 14:15 09/29/20 11:19 Propofol 1,000 Mg/100 Ml Vial IV 10/22/20 14:15 1,000 mg INF PRN Administration TO ACHIEVE GOAL RASS Protocol Sertraline HCl 50 mg 09/21/20 09:00 10/01/20 08:03 Sertraline Hcl 100 Mg Tab PO 50 mg DAILY BUSHRA Administration Sodium Chloride 10 ml 09/22/20 21:00 10/01/20 20:49 Flush - Normal Saline 10 Ml Syringe IVF 10 ml Q12HR BUSHRA Administration Thiamine HCl 100 mg 09/26/20 09:00 10/01/20 08:03 Thiamine 100 Mg Tab PO 100 mg DAILY BUSHRA Administration Vecuronium [place] 10 mg 09/22/20 12:45 09/28/20 14:45 Vecuronium 10 Mg Vial IV 10 mg WILLCALL BUSHRA Administration - Exam General Appearance: awake alert Heart: RRR, no gallops Respiratory: rales, rhonchi Respiratory - other findings: Status post tracheostomy Gastrointestinal: soft, non-distended, no guarding Gastrointestinal - other findings: S/p pain Neurological: no new deficit Hosp A/P - Plan DVT proph w/SCDs Acute hypoxic respiratory failure S/p trach/PEG on 09/29 COPD exacerbation Hypertension Tobacco dependence Chronic alcoholism Hypokalemia Chronic anemia probably due to nutritional deficiency S/p tracheostomy/PEG09/29 Retained foreign body in the right bronchusstatus post removal09/29 Plan: Physical therapy. Continue supportive care. Continue other medications including aspirin, lisinopril.
[2020-10-02] MEDS: Folic Acid 1 MG TAB PO SCH (10:04)
[2020-10-02] MEDS: Multivit, Therapeutic 1 TAB PO SCH (10:04)
[2020-10-02] MEDS: Thiamine 100 MG TAB PO SCH (10:04)
[2020-10-02] MEDS: Famotidine 20 MG TAB PO SCH ×2 (10:04→21:38)
[2020-10-02] MEDS: Lisinopril 10 MG TAB PO SCH (10:04)
[2020-10-02] MEDS: Aspirin Chewable 81 MG TAB PO SCH (10:04)
[2020-10-02] MEDS: Enoxaparin Sodium 40 MG/0.4 ML SYRINGE SC SCH (10:05)
[2020-10-02] MEDS: Scopolamine 1.5 mg/72 hour Patch TD SCH (14:07)
[2020-10-02] MEDS: Haloperidol Lactate 5 MG/ML VIAL IM SCH ×3 (14:08→23:53)
[2020-10-02] MEDS ORDERED: Morphine 2 MG/ML VIAL SLOW IVP PRN (14:24)
[2020-10-02] MEDS ORDERED: Lorazepam 2 MG/ML VIAL SLOW IVP PRN (14:25)
[2020-10-02] MEDS ORDERED: Fentanyl BOLUS 250 ML IVPB PRN (14:25)
[2020-10-02] MEDS ORDERED: fentaNYL Citrate/PF 2,000 MCG in Sodium Chloride 0.9% 60 ML IV SCH (14:30)
--- NOTE | 2020-10-02 17:13 | PRG ---
DATE OF SERVICE: 10/02/2020 SUBJECTIVE: Mr. Jacobsen remains stable but encephalopathic. He is not having any respiratory difficulty with trach collar. OBJECTIVE: LUNGS: He has equal breath sounds with no wheezes. HEART: Regular rhythm. ABDOMEN: Soft. EXTREMITIES: Without asymmetry or edema. NEUROLOGIC: Nonfocal. LABORATORY DATA: White count 19.4, hemoglobin 10.2, platelets 285. Electrolytes are unremarkable. Creatinine 0.6. IMPRESSION: Respiratory failure secondary to very severe chronic obstructive pulmonary disease, now with tracheostomy. PLAN: Add Haldol to see if this helps with his encephalopathy and helps wean him off Precedex. See if we could transfer him out of critical care unit. Probably he will need long-term care at some point in the near future, i.e., LTAC evaluation. Job ID: [id number]
[2020-10-02] MEDS ORDERED: cloNIDine 0.1 MG TAB PER TUBE PRN (19:04)
--- NOTE | 2020-10-02 19:08 | PDOC.HOSPP ---
- Subjective Encounter Date: 10/02/20 Encounter Time: 12:30 Subjective: Patient seen and examined for respiratory failure. No new overnight events. Intermittent confusion per RN. On Precedex drip - Objective Vital Signs & Weight: Vital Signs (12 hours) Temp Pulse Resp BP Pulse Ox 10/02/20 16:00 97.9 F 10/02/20 14:08 59 L 17 100 10/02/20 12:00 97.5 F L 10/02/20 11:24 61 19 100 10/02/20 10:04 164/81 H 10/02/20 08:13 85 21 H 100 10/02/20 08:00 98.6 F 100 Weight Admit Weight 113 lb 12.16 oz Weight 113 lb 12.136 oz Most Recent Monitor Data Heart Rate from ECG 50 NIBP 174/81 NIBP BP-Mean 112 Respiration from ECG 16 SpO2 100 I&O: 10/01/20 10/02/20 10/03/20 06:59 06:59 06:59 Intake Total 1315.9 2708 2593 Output Total 2825 3865 1415 Balance -1509.1 -1157 1178 Result Diagrams: 10/02/20 03:30 10/02/20 03:30 Additional Labs: Abnormal Lab Results - Last 48 hrs 10/01/20 03:20: WBC 20.6 H, RBC 3.26 L, Hgb 10.2 L, Hct 32.2 L, MCV 98.6 H, MCH 31.3 H, MCHC 31.8 L, Neutrophils % (Manual) 83 H, Lymphocytes % (Manual) 1 L 10/02/20 03:30: Creatinine 0.64 L 10/02/20 03:30: WBC 19.4 H, RBC 3.22 L, Hgb 10.2 L, Hct 31.1 L, MCH 31.5 H, Neutrophils % (Manual) 93 H, Band Neuts % (Manual) 1 L, Lymphocytes % (Manual) 6 L, Toxic Granulation MODERATE H Microbiology - Entire Visit 09/25/20 10:00 Bronchial Washing Respiratory Culture - Final 09/19/20 10:44 Venous blood - Left Arm Blood Culture - Final NO GROWTH IN 5 DAYS 09/19/20 10:41 Venous blood - Neck Blood Culture - Final NO GROWTH IN 5 DAYS EKG Reviewed by me: Yes (Sinus rhythm on telemetry) Hospitalist ROS - Review of Systems ROS unobtainable: due to mental status - Medication Medications: Active Medications Generic Name Dose Route Start Last Admin Trade Name Freq PRN Reason Stop Dose Admin Albuterol/Ipratropium 3 ml 09/29/20 10:30 10/02/20 14:08 Ipratropium/Albuterol Sulfate 3 Ml Neb NEB 3 ml [id number] BUSHRA Administration Aspirin 81 mg 10/02/20 09:00 10/02/20 10:04 Aspirin Chewable 81 Mg Tab PO 81 mg DAILY BUSHRA Administration Atorvastatin Calcium 40 mg 09/20/20 21:00 10/01/20 20:49 Atorvastatin Calcium 40 Mg Tab PO 40 mg HS BUSHRA Administration Enoxaparin Sodium 40 mg 09/20/20 09:00 10/02/20 10:05 Enoxaparin Sodium 40 Mg/0.4 Ml Syringe SC 40 mg 0900 BUSHRA Administration Famotidine 20 mg 10/01/20 21:00 10/02/20 10:04 Famotidine 20 Mg Tab PO 20 mg Q12HR BUSHRA Administration Folic Acid 1 mg 09/26/20 09:00 10/02/20 10:04 Folic Acid 1 Mg Tab PO 1 mg DAILY BUSHRA Administration Haloperidol Lactate 5 mg 10/02/20 14:00 10/02/20 18:11 Haloperidol Lactate 5 Mg/Ml Vial IM 5 mg Q4H BUSHRA Administration Dexmedetomidine HCl 400 mcg/ 100 mls @ 0 mls/hr 09/22/20 02:45 10/02/20 15:37 Sodium Chloride IVPB 100 mls INF BUSHRA Administration Protocol Titrate Labetalol HCl 10 mg 09/22/20 03:15 09/30/20 05:58 Labetalol Hcl 100 Mg/20 Ml Vial SLOW IVP 10 mg Q4H PRN Administration SBP Greater Than 180 Methylprednisolone Sodium Succinate 40 mg 09/22/20 14:00 10/02/20 14:07 Methylprednisolone Sod Succ 40 Mg Vial IVP 40 mg Q8HR BUSHRA Administration Multivitamins 1 tab 09/26/20 09:00 10/02/20 10:04 Multivit, Therapeutic 1 Tab PO 1 tab DAILY BUSHRA Administration Propofol 1,000 mg 09/22/20 14:15 09/29/20 11:19 Propofol 1,000 Mg/100 Ml Vial IV 10/22/20 14:15 1,000 mg INF PRN Administration TO ACHIEVE GOAL RASS Protocol Scopolamine 1.5 mg 10/02/20 14:00 10/02/20 14:07 Scopolamine 1.5 Mg/72 Hour Patch TD 1.5 mg Q3D BUSHRA Administration Sertraline HCl 50 mg 09/21/20 09:00 10/02/20 10:04 Sertraline Hcl 100 Mg Tab PO 50 mg DAILY BUSHRA Administration Sodium Chloride 10 ml 09/22/20 21:00 10/02/20 10:05 Flush - Normal Saline 10 Ml Syringe IVF 10 ml Q12HR BUSHRA Administration Thiamine HCl 100 mg 09/26/20 09:00 10/02/20 10:04 Thiamine 100 Mg Tab PO 100 mg DAILY BUSHRA Administration Vecuronium [place] 10 mg 09/22/20 12:45 09/28/20 14:45 Vecuronium 10 Mg Vial IV 10 mg WILLCALL BUSHRA Administration - Exam Heart: no gallops, no rubs Respiratory: no wheezes, rales, rhonchi Gastrointestinal: soft, non-distended, no guarding Extremities: no cyanosis Neurological: no new deficit Hosp A/P - Plan DVT proph w/lovenox, DVT proph w/SCDs Acute hypoxic respiratory failure S/p trach/PEG on 09/29 COPD exacerbation Hypertension Tobacco dependence Chronic alcoholism Hypokalemia Chronic anemia probably due to nutritional deficiency S/p tracheostomy/PEG09/29 Retained foreign body in the right bronchusstatus post removal09/29 Plan: Increase lisinopril to 20 mg twice daily. Add clonidine as needed. LTAC evaluation. Continue supportive care. Continue other medications as above. A.m. labs
[2020-10-02] MEDS: Lisinopril 20 MG TAB PO SCH (21:38)
[2020-10-02] MEDS: Atorvastatin Calcium 40 MG TAB PO SCH (21:38)
[2020-10-02] MEDS: guaiFENesin ER 600 MG TAB PO SCH (21:38)
[2020-10-02] MEDS ORDERED: Haloperidol Lactate 5 MG/ML VIAL SLOW IVP SCH (23:30)
[2020-10-03] MEDS: Haloperidol Lactate 5 MG/ML VIAL IM SCH ×6 (03:16→21:58)
[2020-10-03 04:20] LABS: Band 13 % (5-11); Hemoglobin 10.1 g/dL (14.0-18.0); Lymphocytes 1 % (21-51); MDiff Complete? YES; Mean Corpuscular HGB CONC 32.7 g/dL (32.0-36.0); Mean Corpuscular Hemoglobin 31.3 pg (27.0-31.0); Mean Corpuscular Volume 95.7 fL (78.0-98.0); Mean Platelet Volume 8.7 fL (7.4-10.4); Monocytes 7 % (0-10); Neutrophil 79 % (42-75); Platelet Count 428 thou/uL (130-400); Platelet Morphology Comment Appears Increased; RBC Distribution Width 13.2 % (11.5-14.5); Red Blood Cell (RBC) Count 3.23 mill/uL (4.70-6.10); White Blood Cell (WBC) Count 19.4 thou/uL (4.8-10.8)
[2020-10-03 04:29] LABS: Anion Gap 12 mmol/L (10-20); BUN (Urea Nitrogen) 18 mg/dL (8.4-25.7); Calc. Creatinine Clearance 73 mL/min (70-130); Calcium 8.5 mg/dL (7.8-10.44); Carbon Dioxide 30 mmol/L (23-31); Chloride 100 mmol/L (98-107); Glucose 153 mg/dL (80-115); Potassium 3.8 mmol/L (3.5-5.1); Sodium 138 mmol/L (136-145)
[2020-10-03] MEDS: methylPREDNISolone Sod Succ 40 MG VIAL IVP SCH ×3 (06:23→21:32)
[2020-10-03] MEDS: Enoxaparin Sodium 40 MG/0.4 ML SYRINGE SC SCH (09:17)
[2020-10-03] MEDS: Lisinopril 20 MG TAB PO SCH ×2 (09:17→21:31)
[2020-10-03] MEDS: Aspirin Chewable 81 MG TAB PO SCH (09:18)
[2020-10-03] MEDS: guaiFENesin ER 600 MG TAB PO SCH ×2 (09:18→21:31)
[2020-10-03] MEDS: Folic Acid 1 MG TAB PO SCH (09:18)
[2020-10-03] MEDS: Famotidine 20 MG TAB PO SCH ×2 (09:18→21:31)
[2020-10-03] MEDS: Multivit, Therapeutic 1 TAB PO SCH (09:18)
[2020-10-03] MEDS: Thiamine 100 MG TAB PO SCH (09:18)
[2020-10-03] MEDS: Labetalol HCl 100 MG/20 ML VIAL SLOW IVP PRN (16:38)
[2020-10-03] MEDS: Sodium Chloride 0.9% 1,000 ML IV SCH (16:38)
[2020-10-03] MEDS: Atorvastatin Calcium 40 MG TAB PO SCH (21:31)
--- NOTE | 2020-10-03 23:08 | PDOC.HOSPP ---
- Subjective Encounter Date: 10/03/20 Encounter Time: 14:45 Subjective: Patient seen and examined for respiratory failure requiring mechanical ventilation with subsequent tracheostomy and PEG tube placement. Denies any new complaints. No chest pain or shortness of breath. - Objective Vital Signs & Weight: Vital Signs (12 hours) Temp Pulse Resp BP BP Pulse Ox 10/03/20 22:09 97.8 F 81 18 205/91 H 93 L 10/03/20 21:31 177/84 H 10/03/20 17:39 98.0 F 80 20 167/89 H 100 10/03/20 16:38 98 Weight Admit Weight 113 lb 12.16 oz Weight 113 lb 12.136 oz Most Recent Monitor Data Heart Rate from ECG 107 NIBP 173/77 NIBP BP-Mean 109 Respiration from ECG 27 SpO2 98 I&O: 10/02/20 10/03/20 10/04/20 06:59 06:59 06:59 Intake Total 2708 2653 606 Output Total 3865 2590 675 Balance -1157 63 -69 Result Diagrams: 10/03/20 03:25 10/03/20 03:25 EKG Reviewed by me: Yes (Sinus rhythm on telemetry earlier) Hospitalist ROS - Review of Systems Gastrointestinal: denies: nausea, vomiting, abdominal pain, diarrhea, constipation, melena, hematochezia, other Genitourinary: denies: dysuria, frequency, incontinence, hematuria, retention, other - Medication Medications: Active Medications Generic Name Dose Route Start Last Admin Trade Name Freq PRN Reason Stop Dose Admin Albuterol/Ipratropium 3 ml 09/29/20 10:30 10/03/20 19:17 Ipratropium/Albuterol Sulfate 3 Ml Neb NEB 3 ml [id number] BUSHRA Administration Aspirin 81 mg 10/02/20 09:00 10/03/20 09:18 Aspirin Chewable 81 Mg Tab PO 81 mg DAILY BUSHRA Administration Atorvastatin Calcium 40 mg 09/20/20 21:00 10/03/20 21:31 Atorvastatin Calcium 40 Mg Tab PO 40 mg HS BUSHRA Administration Enoxaparin Sodium 40 mg 09/20/20 09:00 10/03/20 09:17 Enoxaparin Sodium 40 Mg/0.4 Ml Syringe SC 40 mg 0900 BUSHRA Administration Famotidine 20 mg 10/01/20 21:00 10/03/20 21:31 Famotidine 20 Mg Tab PO 20 mg Q12HR BUSHRA Administration Folic Acid 1 mg 09/26/20 09:00 10/03/20 09:18 Folic Acid 1 Mg Tab PO 1 mg DAILY BUSHRA Administration Guaifenesin 600 mg 10/02/20 21:00 10/03/20 21:31 Guaifenesin Er 600 Mg Tab PO 600 mg Q12HR BUSHRA Administration Haloperidol Lactate 5 mg 10/02/20 14:00 10/03/20 21:58 Haloperidol Lactate 5 Mg/Ml Vial IM 5 mg Q4H BUSHRA Administration Sodium Chloride 1,000 mls @ 30 mls/hr 10/02/20 19:05 10/03/20 16:38 Normal Saline 0.9% IV 1,000 mls .Q24H BUSHRA Administration Labetalol HCl 10 mg 09/22/20 03:15 10/03/20 16:38 Labetalol Hcl 100 Mg/20 Ml Vial SLOW IVP 10 mg Q4H PRN Administration SBP Greater Than 180 Lisinopril 20 mg 10/02/20 21:00 10/03/20 21:31 Lisinopril 20 Mg Tab PO 20 mg BID BUSHRA Administration Methylprednisolone Sodium Succinate 40 mg 09/22/20 14:00 10/03/20 21:32 Methylprednisolone Sod Succ 40 Mg Vial IVP 40 mg Q8HR BUSHRA Administration Multivitamins 1 tab 09/26/20 09:00 10/03/20 09:18 Multivit, Therapeutic 1 Tab PO 1 tab DAILY BUSHRA Administration Scopolamine 1.5 mg 10/02/20 14:00 10/02/20 14:07 Scopolamine 1.5 Mg/72 Hour Patch TD 1.5 mg Q3D BUSHRA Administration Sertraline HCl 50 mg 09/21/20 09:00 10/03/20 09:18 Sertraline Hcl 100 Mg Tab PO 50 mg DAILY BUSHRA Administration Sodium Chloride 10 ml 09/22/20 21:00 10/03/20 21:31 Flush - Normal Saline 10 Ml Syringe IVF 10 ml Q12HR BUSHRA Administration Thiamine HCl 100 mg 09/26/20 09:00 10/03/20 09:18 Thiamine 100 Mg Tab PO 100 mg DAILY BUSHRA Administration - Exam General Appearance: ill appearing Neck: supple, no JVD Heart: no gallops, no rubs Respiratory: no wheezes, no rales Gastrointestinal: non-tender, non-distended Extremities: no cyanosis Musculoskeletal: generalized weakness Hosp A/P - Plan DVT proph w/SCDs Acute hypoxic respiratory failure S/p trach/PEG on 09/29 COPD exacerbation Hypertension Tobacco dependence Chronic alcoholism Hypokalemia Chronic anemia probably due to nutritional deficiency S/p tracheostomy/PEG09/29 Retained foreign body in the right bronchusstatus post removal09/29 Plan: Await LTAC eval. Continue PEG tube feeding. Continue GI and DVT prophylaxis. Add amlodipine. Continue prn antihypertensive medications. Continue other med ications as above
[2020-10-04] MEDS: Haloperidol Lactate 5 MG/ML VIAL IM SCH ×2 (01:14→06:14)
[2020-10-04] MEDS: methylPREDNISolone Sod Succ 40 MG VIAL IVP SCH (06:11)
[2020-10-04 06:44] LABS: Hemoglobin 10.4 g/dL (14.0-18.0); Mean Corpuscular HGB CONC 33.2 g/dL (32.0-36.0); Mean Corpuscular Hemoglobin 31.6 pg (27.0-31.0); Mean Corpuscular Volume 95.4 fL (78.0-98.0); Mean Platelet Volume 8.1 fL (7.4-10.4); Platelet Count 469 thou/uL (130-400); RBC Distribution Width 13.2 % (11.5-14.5); White Blood Cell (WBC) Count 22.4 thou/uL (4.8-10.8)
[2020-10-04 07:02] LABS: Anion Gap 16 mmol/L (10-20); BUN (Urea Nitrogen) 15 mg/dL (8.4-25.7); Calc. Creatinine Clearance 74 mL/min (70-130); Calcium 8.6 mg/dL (7.8-10.44); Carbon Dioxide 29 mmol/L (23-31); Chloride 98 mmol/L (98-107); Glucose 101 mg/dL (80-115); Potassium 3.3 mmol/L (3.5-5.1); Sodium 140 mmol/L (136-145)
[2020-10-04] MEDS ORDERED: Haloperidol Lactate 5 MG/ML VIAL IM PRN (07:46)
[2020-10-04] MEDS: Famotidine 20 MG TAB PO SCH ×2 (08:22→21:38)
[2020-10-04] MEDS: Thiamine 100 MG TAB PO SCH (08:22)
[2020-10-04] MEDS: predniSONE 20 MG TAB PO SCH (08:22)
[2020-10-04] MEDS: Amlodipine 5 MG TAB PO SCH (08:23)
[2020-10-04] MEDS: Aspirin Chewable 81 MG TAB PO SCH (08:23)
[2020-10-04] MEDS: Lisinopril 20 MG TAB PO SCH ×2 (08:23→21:38)
[2020-10-04] MEDS: Folic Acid 1 MG TAB PO SCH (08:24)
[2020-10-04] MEDS: guaiFENesin ER 600 MG TAB PO SCH ×2 (08:24→21:38)
[2020-10-04] MEDS: Multivit, Therapeutic 1 TAB PO SCH (08:24)
[2020-10-04] MEDS: Enoxaparin Sodium 40 MG/0.4 ML SYRINGE SC SCH (08:24)
--- NOTE | 2020-10-04 08:32 | PRG ---
DATE OF SERVICE: SUBJECTIVE: Francisco Kay is doing well. He is afebrile. He had no complaints this morning. OBJECTIVE: VITAL SIGNS: Heart rate is 90, respiratory rate is 18, oximetry is 90 to 92 on his trach collar. Blood pressure is 173/77. LUNGS: Clear. HEART: Regular rhythm. ABDOMEN: Soft. LABORATORY DATA: White count 22, hemoglobin 10, platelets 469. Electrolytes are normal. IMPRESSION: 1. Respiratory failure associated with chronic obstructive pulmonary disease exacerbation. 2. Hypertension, poorly controlled. 3. Weakness and deconditioning. He needs physical therapy. Consult needs to be up in a chair, although his risk of falling out of a chair and trying to get out of chair is probably significant. He needs placement either in rehab or long-term care. Job ID: [id number]
[2020-10-04 08:51] LABS: Band 3 % (5-11); Lymphocytes 4 % (21-51); MDiff Complete? YES; Monocytes 2 % (0-10); Neutrophil 91 % (42-75); Platelet Morphology Comment Appears Increased; Polychromasia SLIGHT = 2-3 cells (100X) (0-2/hpf); Toxic Granulation SLIGHT
--- NOTE | 2020-10-04 13:28 | PDOC.HOSPP ---
- Subjective Encounter Date: 10/04/20 Subjective: The patient was seen and examined. He is resting comfortably without evidence of respiratory distress. - Objective Vital Signs & Weight: Vital Signs (12 hours) Temp Pulse Resp BP BP Pulse Ox 10/04/20 12:16 98.5 F 103 H 22 H 169/77 H 100 10/04/20 08:23 101 H 164/77 H 10/04/20 08:00 98.6 F 98 24 H 100/69 97 10/04/20 07:14 101 H 18 92 L 10/04/20 05:23 98.1 F 90 18 173/77 H 90 L Weight Admit Weight 113 lb 12.16 oz Weight 113 lb 12.136 oz Most Recent Monitor Data Heart Rate from ECG 107 NIBP 173/77 NIBP BP-Mean 109 Respiration from ECG 27 SpO2 98 I&O: 10/03/20 10/04/20 10/05/20 06:59 06:59 06:59 Intake Total 2653 1146 Output Total 2590 675 Balance 63 471 Result Diagrams: 10/04/20 06:19 10/04/20 06:19 Hospitalist ROS - Medication Medications: Active Medications Generic Name Dose Route Start Last Admin Trade Name Freq PRN Reason Stop Dose Admin Albuterol/Ipratropium 3 ml 09/29/20 10:30 10/04/20 10:44 Ipratropium/Albuterol Sulfate 3 Ml Neb NEB 3 ml [id number] BUSHRA Administration Amlodipine Besylate 5 mg 10/04/20 09:00 10/04/20 08:23 Amlodipine 5 Mg Tab PO 5 mg DAILY BUSHRA Administration Aspirin 81 mg 10/02/20 09:00 10/04/20 08:23 Aspirin Chewable 81 Mg Tab PO 81 mg DAILY BUSHRA Administration Atorvastatin Calcium 40 mg 09/20/20 21:00 10/03/20 21:31 Atorvastatin Calcium 40 Mg Tab PO 40 mg HS BUSHRA Administration Enoxaparin Sodium 40 mg 09/20/20 09:00 10/04/20 08:24 Enoxaparin Sodium 40 Mg/0.4 Ml Syringe SC 40 mg 0900 BUSHRA Administration Famotidine 20 mg 10/01/20 21:00 10/04/20 08:22 Famotidine 20 Mg Tab PO 20 mg Q12HR BUSHRA Administration Folic Acid 1 mg 09/26/20 09:00 10/04/20 08:24 Folic Acid 1 Mg Tab PO 1 mg DAILY BUSHRA Administration Guaifenesin 600 mg 10/02/20 21:00 10/04/20 08:24 Guaifenesin Er 600 Mg Tab PO 600 mg Q12HR BUSHRA Administration Lisinopril 20 mg 10/02/20 21:00 10/04/20 08:23 Lisinopril 20 Mg Tab PO 20 mg BID BUSHRA Administration Multivitamins 1 tab 09/26/20 09:00 10/04/20 08:24 Multivit, Therapeutic 1 Tab PO 1 tab DAILY BUSHRA Administration Prednisone 20 mg 10/04/20 08:00 10/04/20 08:22 Prednisone 20 Mg Tab PO 20 mg QAM-WM BUSHRA Administration Scopolamine 1.5 mg 10/02/20 14:00 10/02/20 14:07 Scopolamine 1.5 Mg/72 Hour Patch TD 1.5 mg Q3D BUSHRA Administration Sertraline HCl 50 mg 09/21/20 09:00 10/04/20 08:24 Sertraline Hcl 100 Mg Tab PO 50 mg DAILY BUSHRA Administration Sodium Chloride 10 ml 09/22/20 21:00 10/04/20 08:24 Flush - Normal Saline 10 Ml Syringe IVF 10 ml Q12HR BUSHRA Administration Thiamine HCl 100 mg 09/26/20 09:00 10/04/20 08:22 Thiamine 100 Mg Tab PO 100 mg DAILY BUSHRA Administration - Exam ENT: normocephalic atraumatic Heart: RRR Respiratory: normal chest expansion, no tachypnea Extremities: no cyanosis, no clubbing Hosp A/P - Plan Acute hypoxic respiratory failure S/p trach/PEG on 09/29 COPD exacerbation Hypertension Tobacco dependence Chronic alcoholism Hypokalemia Chronic anemia probably due to nutritional deficiency S/p tracheostomy/PEG09/29 Retained foreign body in the right bronchusstatus post removal09/29 Plan: Evidence of respiratory distress. Continue nebulizer treatments and prednisone. Continue lisinopril and amlodipine for blood pressure control. Pending LTAC placement.
[2020-10-04] MEDS ORDERED: Potassium Chloride 20 MEQ TAB PO SCH (13:30)
[2020-10-04] MEDS: Atorvastatin Calcium 40 MG TAB PO SCH (21:38)
[2020-10-05 06:05] LABS: Eosinophils 1 % (0-10); Hemoglobin 10.2 g/dL (14.0-18.0); Hypochromia SLIGHT = 6-15 cells (100X) (0-5/hpf); Lymphocytes 13 % (21-51); MDiff Complete? YES; Mean Corpuscular HGB CONC 33.3 g/dL (32.0-36.0); Mean Corpuscular Hemoglobin 31.8 pg (27.0-31.0); Mean Corpuscular Volume 95.3 fL (78.0-98.0); Monocytes 5 % (0-10); Neutrophil 81 % (42-75); Platelet Count 453 thou/uL (130-400); Platelet Morphology Comment Appears Increased; RBC Distribution Width 13.3 % (11.5-14.5); Red Blood Cell (RBC) Count 3.21 mill/uL (4.70-6.10); White Blood Cell (WBC) Count 22.1 thou/uL (4.8-10.8)
[2020-10-05 06:14] LABS: Anion Gap 13 mmol/L (10-20); BUN (Urea Nitrogen) 14 mg/dL (8.4-25.7); Calc. Creatinine Clearance 70 mL/min (70-130); Calcium 8.6 mg/dL (7.8-10.44); Carbon Dioxide 30 mmol/L (23-31); Chloride 100 mmol/L (98-107); Glucose 115 mg/dL (80-115); Sodium 140 mmol/L (136-145)
[2020-10-05 06:16] LABS: Potassium 2.9 mmol/L (3.5-5.1)
[2020-10-05] MEDS ORDERED: Potassium Chloride 40 MEQ in Sodium Chloride 0.9% 250 ML 250 ML IVPB SCH (07:30)
[2020-10-05] MEDS ORDERED: Potassium Chloride 20 MEQ TAB PER TUBE SCH (09:30)
[2020-10-05] MEDS: Folic Acid 1 MG TAB PO SCH (09:30)
[2020-10-05] MEDS: Famotidine 20 MG TAB PO SCH ×2 (09:30→20:30)
[2020-10-05] MEDS ORDERED: Electrolyte Replacement Protocol 1 EACH FS PRN (09:30)
[2020-10-05] MEDS: Thiamine 100 MG TAB PO SCH (09:30)
[2020-10-05] MEDS: Aspirin Chewable 81 MG TAB PO SCH (09:30)
[2020-10-05] MEDS: Amlodipine 5 MG TAB PO SCH (09:30)
[2020-10-05] MEDS: Lisinopril 20 MG TAB PO SCH ×2 (09:30→20:30)
[2020-10-05] MEDS: Enoxaparin Sodium 40 MG/0.4 ML SYRINGE SC SCH (09:31)
[2020-10-05] MEDS: guaiFENesin ER 600 MG TAB PO SCH ×2 (09:31→20:30)
[2020-10-05] MEDS: predniSONE 20 MG TAB PO SCH (09:31)
[2020-10-05] MEDS: Multivit, Therapeutic 1 TAB PO SCH (09:31)
[2020-10-05 11:13] LABS: Magnesium 1.8 mg/dL (1.6-2.6); Phosphorus 2.5 mg/dL (2.3-4.7)
[2020-10-05] MEDS ORDERED: Potassium Bicarbonate/Cit Ac 20 MEQ TAB PER TUBE SCH (11:30)
[2020-10-05] MEDS: Scopolamine 1.5 mg/72 hour Patch TD SCH (13:35)
[2020-10-05] MEDS ORDERED: Magnesium 2 GM/50 ML 2 GM in Premix Bag 1 BAG IVPB SCH (14:15)
[2020-10-05] MEDS: Atorvastatin Calcium 40 MG TAB PO SCH (20:30)
--- NOTE | 2020-10-05 23:11 | PDOC.HOSPP ---
- Subjective Encounter Date: 10/05/20 Encounter Time: 14:15 Subjective: Patient seen and examined for respiratory failure. Intermittent confusion. Denies any Chest pain, palpitations or nausea - Objective Vital Signs & Weight: Vital Signs (12 hours) Temp Pulse Resp BP BP Pulse Ox 10/05/20 22:16 88 20 100 10/05/20 21:27 97.7 F 10/05/20 21:23 108 H 22 H 142/81 H 94 L 10/05/20 20:30 170/87 H 10/05/20 19:31 82 18 10/05/20 11:42 84 14 100 Weight Admit Weight 113 lb 12.16 oz Weight 113 lb 12.136 oz Most Recent Monitor Data Heart Rate from ECG 107 NIBP 173/77 NIBP BP-Mean 109 Respiration from ECG 27 SpO2 98 I&O: 10/04/20 10/05/20 10/06/20 06:59 06:59 06:59 Intake Total 8544 982 4930 Output Total 675 Balance 962 785 3907 Result Diagrams: 10/05/20 05:40 10/05/20 05:40 Additional Labs: Accuchecks 10/05/20 11:43 POC Glucose TNP Abnormal Lab Results - Last 48 hrs 10/04/20 06:19: Potassium 3.3 L, Creatinine 0.69 L 10/04/20 06:19: WBC 22.4 H, RBC 3.30 L, Hgb 10.4 L, Hct 31.4 L, MCH 31.6 H, Plt Count 469 H, Neutrophils % (Manual) 91 H, Band Neuts % (Manual) 3 L, Lymphocytes % (Manual) 4 L, Plt Morphology Comment Appears Increased H 10/05/20 05:40: Potassium 2.9 L* 10/05/20 05:40: WBC 22.1 H, RBC 3.21 L, Hgb 10.2 L, Hct 30.6 L, MCH 31.8 H, Plt Count 453 H, Neutrophils % (Manual) 81 H, Lymphocytes % (Manual) 13 L, Plt Morphology Comment Appears Increased H Microbiology - Entire Visit 09/25/20 10:00 Bronchial Washing Respiratory Culture - Final 09/19/20 10:44 Venous blood - Left Arm Blood Culture - Final NO GROWTH IN 5 DAYS 09/19/20 10:41 Venous blood - Neck Blood Culture - Final NO GROWTH IN 5 DAYS Hospitalist ROS - Review of Systems Cardiovascular: denies: chest pain, palpitations, orthopnea, paroxysmal noc. dyspnea, edema, light headedness, other Gastrointestinal: denies: nausea, vomiting, abdominal pain, diarrhea, constipation, melena, hematochezia, other - Medication Medications: Active Medications Generic Name Dose Route Start Last Admin Trade Name Freq PRN Reason Stop Dose Admin Albuterol/Ipratropium 3 ml 09/29/20 10:30 10/05/20 22:16 Ipratropium/Albuterol Sulfate 3 Ml Neb NEB 3 ml [id number] BUSHRA Administration Amlodipine Besylate 5 mg 10/04/20 09:00 10/05/20 09:30 Amlodipine 5 Mg Tab PO 5 mg DAILY [facility] Administration Aspirin 81 mg 10/02/20 09:00 10/05/20 09:30 Aspirin Chewable 81 Mg Tab PO 81 mg DAILY [facility] Administration Atorvastatin Calcium 40 mg 09/20/20 21:00 10/05/20 20:30 Atorvastatin Calcium 40 Mg Tab PO Not Given HS [facility] Enoxaparin Sodium 40 mg 09/20/20 09:00 10/05/20 09:31 Enoxaparin Sodium 40 Mg/0.4 Ml Syringe SC 40 mg 0900 [facility] Administration Famotidine 20 mg 10/01/20 21:00 10/05/20 20:30 Famotidine 20 Mg Tab PO Not Given Q12HR [facility] Folic Acid 1 mg 09/26/20 09:00 10/05/20 09:30 Folic Acid 1 Mg Tab PO 1 mg DAILY [facility] Administration Guaifenesin 600 mg 10/02/20 21:00 10/05/20 20:30 Guaifenesin Er 600 Mg Tab PO Not Given Q12HR [facility] Lisinopril 20 mg 10/02/20 21:00 10/05/20 20:30 Lisinopril 20 Mg Tab PO Not Given BID [facility] Multivitamins 1 tab 09/26/20 09:00 10/05/20 09:31 Multivit, Therapeutic 1 Tab PO 1 tab DAILY [facility] Administration Prednisone 20 mg 10/04/20 08:00 10/05/20 09:31 Prednisone 20 Mg Tab PO 20 mg QAM-WM [facility] Administration Scopolamine 1.5 mg 10/02/20 14:00 10/05/20 13:35 Scopolamine 1.5 Mg/72 Hour Patch TD 1.5 mg Q3D BUSHRA Administration Sertraline HCl 50 mg 09/21/20 09:00 10/05/20 09:30 Sertraline Hcl 100 Mg Tab PO 50 mg DAILY BUSHRA Administration Sodium Chloride 10 ml 09/22/20 21:00 10/05/20 20:31 Flush - Normal Saline 10 Ml Syringe IVF Not Given Q12HR BUSHRA Thiamine HCl 100 mg 09/26/20 09:00 10/05/20 09:30 Thiamine 100 Mg Tab PO 100 mg DAILY BUSHRA Administration - Exam General Appearance: NAD Neck: supple, no JVD Heart: RRR, no gallops Respiratory: rales, rhonchi Gastrointestinal: soft, non-tender, normal bowel sounds Extremities: no cyanosis Hosp A/P - Plan DVT proph w/SCDs Acute hypoxic respiratory failure S/p trach/PEG on 09/29 COPD exacerbation Hypertension Tobacco dependence Chronic alcoholism Hypokalemia Chronic anemia probably due to nutritional deficiency S/p tracheostomy/PEG09/29 Retained foreign body in the right bronchusstatus post removal09/29 Plan: Vital signs stable. Patient remains intermittently confused. Family declining LTAC placement at this time. Will start with rehab eval. Replace magnesium and potassium. Continue bronchodilators. Continue aspirin, statins, amlodipine and other medications as above. Continue prednisone taper. A.m. labs. Continue therapy.
[2020-10-06 05:41] LABS: Anion Gap 12 mmol/L (10-20); BUN (Urea Nitrogen) 12 mg/dL (8.4-25.7); Calc. Creatinine Clearance 76 mL/min (70-130); Calcium 8.5 mg/dL (7.8-10.44); Carbon Dioxide 28 mmol/L (23-31); Chloride 104 mmol/L (98-107); Glucose 114 mg/dL (80-115); Sodium 140 mmol/L (136-145)
[2020-10-06 07:09] LABS: Mean Corpuscular HGB CONC 32.8 g/dL (32.0-36.0); Mean Corpuscular Hemoglobin 31.5 pg (27.0-31.0); Mean Platelet Volume 8.1 fL (7.4-10.4); Platelet Count 456 thou/uL (130-400); RBC Distribution Width 13.4 % (11.5-14.5); Red Blood Cell (RBC) Count 3.19 mill/uL (4.70-6.10); White Blood Cell (WBC) Count 19.1 thou/uL (4.8-10.8)
[2020-10-06 07:10] LABS: Band 1 % (5-11); Lymphocytes 18 % (21-51); MDiff Complete? YES; Monocytes 8 % (0-10); Neutrophil 73 % (42-75)
[2020-10-06 07:11] LABS: Hypochromia SLIGHT = 6-15 cells (100X) (0-5/hpf); Platelet Morphology Comment Appears Increased; Polychromasia SLIGHT = 2-3 cells (100X) (0-2/hpf)
[2020-10-06] MEDS: Famotidine 20 MG TAB PO SCH (08:27)
[2020-10-06] MEDS: Multivit, Therapeutic 1 TAB PO SCH (08:28)
[2020-10-06] MEDS: guaiFENesin ER 600 MG TAB PO SCH (08:28)
[2020-10-06] MEDS: Aspirin Chewable 81 MG TAB PO SCH (08:29)
[2020-10-06] MEDS: Amlodipine 5 MG TAB PO SCH (08:29)
[2020-10-06] MEDS: Lisinopril 20 MG TAB PO SCH (08:29)
[2020-10-06] MEDS: Thiamine 100 MG TAB PO SCH (08:29)
[2020-10-06] MEDS: predniSONE 20 MG TAB PO SCH (08:29)
[2020-10-06] MEDS: Folic Acid 1 MG TAB PO SCH (08:29)
[2020-10-06] MEDS: Enoxaparin Sodium 40 MG/0.4 ML SYRINGE SC SCH (08:30)
[2020-10-06 19:50] VITALS: BP 169/83; TEMP 98.2
--- NOTE | 2020-10-06 22:05 | PDOC.DS.DS ---
Provider - Provider Date of Admission: 09/19/20 15:07 Date of Discharge: 10/06/20 Admitting Provider: Baltazar Chandra MD Consultations: Pulmonary Primary Care Physician: Corry Sargent Course - Hospital Course Hospital Course: Patient is 70-year-old male with COPD presented to the hospital on 09/19 with shortness of breath. His work-up was consistent with COPD exacerbation. He was started on bronchodilators along with steroids and was subsequently intubated and placed on mechanical ventilation in the emergency room. CT angiogram of the chest was negative for pulmonary embolism. It showed pulmonary nodule in the left lower lobe. Please refer to the history and physical for further details. The patient was admitted to the intensive care unit with a diagnosis of acute hypoxic respiratory failure. He was evaluated by critical care Dr. Fenton. Steroids and antibiotics were continued along with supportive care. He failed extubation requiring ED intubation with bronchoscopy on 09/22. On 09/29 he underwent tracheostomy with PEG tube placement. At the same time he underwent bronchoscopy with air travel of her tooth from the right bronchus by Dr. Fenton. Patient has been cleared for discharge to long-term acute care for further management. Final diagnosis: Acute hypoxic respiratory failure S/p trach/PEG on 09/29 COPD exacerbation Hypertension Tobacco dependence Chronic alcoholism Hypokalemia Chronic anemia probably due to nutritional deficiency S/p tracheostomy/PEG/ Retained foreign body in the right bronchusstatus post removal09/29 Time coordinating the discharge of this patient was 37 minutes. Resuscitation Status: 09/19/20 14:53 Resuscitation Status Routine Resuscitation Status: FULL: Full Resuscitation - Labs Lab Results: 10/06/20 03:06 10/06/20 02:30 Abnormal Lab Results - Last 48 hrs 10/05/20 05:40: Potassium 2.9 L* 10/05/20 05:40: WBC 22.1 H, RBC 3.21 L, Hgb 10.2 L, Hct 30.6 L, MCH 31.8 H, Plt Count 453 H, Neutrophils % (Manual) 81 H, Lymphocytes % (Manual) 13 L, Plt Morphology Comment Appears Increased H 10/06/20 02:30: Creatinine 0.67 L 10/06/20 03:06: WBC 19.1 H, RBC 3.19 L, Hgb 10.0 L, Hct 30.6 L, MCH 31.5 H, Plt Count 456 H, Band Neuts % (Manual) 1 L, Lymphocytes % (Manual) 18 L, Plt Morphology Comment Appears Increased H Microbiology - Entire Visit 09/25/20 10:00 Bronchial Washing Respiratory Culture - Final 09/19/20 10:44 Venous blood - Left Arm Blood Culture - Final NO GROWTH IN 5 DAYS 09/19/20 10:41 Venous blood - Neck Blood Culture - Final NO GROWTH IN 5 DAYS - Physical Exam Vitals: Vital Signs (12 hours) Temp Pulse Resp BP Pulse Ox 10/06/20 19:33 76 16 97 10/06/20 16:00 98.2 F 82 20 169/83 H 96 10/06/20 10:11 86 16 98 Weight Admit Weight 113 lb 12.16 oz Weight 113 lb 12.136 oz Most Recent Monitor Data Heart Rate from ECG 107 NIBP 173/77 NIBP BP-Mean 109 Respiration from ECG 27 SpO2 98 Physical Exam: The patient was seen and examined on the day of discharge. Plan - Discharge Medications Prescriptions: predniSONE 20 mg PO ASDIR #22 tab Home Medications: Medication Instructions Recorded Confirmed Type Aspirin [Aspir-Low] 81 mg PO DAILY 07/12/17 09/15/20 History Sertraline HCl [Zoloft] 50 mg PO DAILY 06/17/20 09/21/20 History Fluticasone Propionate [Flonase 1 spray EA NARE DAILY PRN 09/15/20 09/21/20 History Allergy Relief] Atorvastatin Calcium [Lipitor] 40 mg PO HS 30 Days #30 tab 09/18/20 Rx Fluticasone Furoate [Arnuity 09/21/20 History Ellipta] Umeclidinium/Vilanterol [Anoro 62.5 mcg INH DAILY 09/21/20 09/21/20 History Ellipta 62.5/25 MCG INH] Amlodipine [Norvasc] 5 mg PO DAILY tab 10/06/20 Rx Enoxaparin Sodium [Lovenox] 40 mg SC 0900 syringe 10/06/20 Rx Famotidine [Pepcid] 20 mg PO Q12HR tab 10/06/20 Rx Folic Acid [Folvite] 1 mg PO DAILY tab 10/06/20 Rx Ipratropium/Albuterol Sulfate 3 ml NEB Q4H PRN neb 10/06/20 Rx [DuoNeb] Ipratropium/Albuterol Sulfate 3 ml NEB [id number] neb 10/06/20 Rx [DuoNeb] Lisinopril [Zestril] 20 mg PO BID tab 10/06/20 Rx Multivit, Therapeutic [Theragran] 1 tab PO DAILY tab 10/06/20 Rx Scopolamine [Transderm Scop] 1.5 mg TD Q3D patch 10/06/20 Rx Thiamine 100 mg PO DAILY tab 10/06/20 Rx guaiFENesin ER [Mucinex] 600 mg PO Q12HR tab 10/06/20 Rx predniSONE 20 mg PO ASDIR #22 tab 10/06/20 Rx Allergies: No Known Allergies Allergy (Verified 06/17/20 10:02) - Follow up Plan Referrals: Magnus Scruggs MD [Active] - Corry Sargent MD [Primary Care Provider] - 3 Days Danny Fenton MD [Active] - 2-3 Weeks Disposition: OTHER HOSPITAL IN Quality - Care Measures CORE MEASURES:: N/A
== END 2020-10-06 20:41 | DRG 4 ==
LOC: ERS 10:13 → CCU 15:07 → T4-A 10-03 10:30
PROVIDERS: ADMIT Internal Medicine; ATTEND Internal Medicine
PROC: 5A1945Z Respiratory Ventilation, 24-96 Consecutive Hours (ICD-10-PCS; 2020-09-19)
PROC: 0D9670Z Drainage of Stomach with Drainage Device, Via Natural or Artificial Opening (ICD-10-PCS; 2020-09-19)
PROC: 5A09357 Assistance with Respiratory Ventilation, Less than 24 Consecutive Hours, Continuous Positive Airway Pressure (ICD-10-PCS; 2020-09-21)
PROC: 5A1955Z Respiratory Ventilation, Greater than 96 Consecutive Hours (ICD-10-PCS; 2020-09-22)
PROC: 0BH18EZ Insertion of Endotracheal Airway into Trachea, Via Natural or Artificial Opening Endoscopic (ICD-10-PCS; 2020-09-22)
PROC: 0B928ZZ Drainage of Carina, Via Natural or Artificial Opening Endoscopic (ICD-10-PCS; 2020-09-22)
PROC: 0BB68ZZ Excision of Right Lower Lobe Bronchus, Via Natural or Artificial Opening Endoscopic (ICD-10-PCS; 2020-09-25)
PROC: 0B110F4 Bypass Trachea to Cutaneous with Tracheostomy Device, Open Approach (ICD-10-PCS; principal; 2020-09-29)
PROC: 02HV33Z Insertion of Infusion Device into Superior Vena Cava, Percutaneous Approach (ICD-10-PCS; 2020-09-29)
PROC: 0DH63UZ Insertion of Feeding Device into Stomach, Percutaneous Approach (ICD-10-PCS; 2020-09-29)
PROC: 0BC38ZZ Extirpation of Matter from Right Main Bronchus, Via Natural or Artificial Opening Endoscopic (ICD-10-PCS; 2020-09-29)
DX: J43.9 Emphysema, unspecified (principal); J96.21 Acute and chronic respiratory failure with hypoxia; I21.4 Non-ST elevation (NSTEMI) myocardial infarction; G93.41 Metabolic encephalopathy; E87.2 Acidosis; Z68.1 Body mass index [BMI] 19.9 or less, adult; E46 Unspecified protein-calorie malnutrition; T17.598A Other foreign object in bronchus causing other injury, initial encounter; Z99.11 Dependence on respirator [ventilator] status; Z20.822 Contact with and (suspected) exposure to COVID-19; I10 Essential (primary) hypertension; F17.210 Nicotine dependence, cigarettes, uncomplicated; F10.20 Alcohol dependence, uncomplicated; E87.6 Hypokalemia; D53.9 Nutritional anemia, unspecified; F41.9 Anxiety disorder, unspecified; R91.1 Solitary pulmonary nodule; I25.10 Atherosclerotic heart disease of native coronary artery without angina pectoris; Z79.82 Long term (current) use of aspirin; Z79.51 Long term (current) use of inhaled steroids; Z98.890 Other specified postprocedural states; Z90.49 Acquired absence of other specified parts of digestive tract; Z79.899 Other long term (current) drug therapy; X58.XXXA Exposure to other specified factors, initial encounter; R73.9 Hyperglycemia, unspecified; Z95.5 Presence of coronary angioplasty implant and graft; Z78.1 Physical restraint status
CPT/HCPCS: 0240U; 36415; 36416; 36600; 51702; 71045; 71250; 71275; 74018; 80048; 80053; 82550; 82805; 83605; 83735; 83880; 84100; 84484; 85007; 85025; 85027; 85610; 85730; 87040; 87070; 87205; 88112; 88305; 88313; 88341; 88342; 93005; 94002; 94003; 94640; 94660; 94760; 96365; 96366; 96368; 96374; 96375; 96376; C1751; J0171; J0456; J0696; J1100; J1630; J1650; J2060; J2250; J2270; J2704; J2920; J3010; J3411; J3475; J3480; J3490; J7030; J7042; J7050; J7512; J7620; Q9967; S0020; S0028

== ENCOUNTER 2020-11-23 09:53 | Outpatient (CLI) | payer MEDICARE, MEDICAID ==
--- NOTE | 2020-11-23 10:17 | RAD ---
PA AND LATERAL CHEST: HISTORY: Dyspnea. COMPARISON: 12/09/2017 exam. FINDINGS: Heart size within normal limits. There are atherosclerotic changes of the aorta. Chronic lung hamilton es are seen. No focal infiltrative process. IMPRESSION: Chronic-appearing lung change. POS: MACK
== END 2020-11-23 09:54 | disposition home or self-care (01) ==
LOC: BICRAD 09:53
PROVIDERS: ATTEND Internal Medicine Critical Care Medicine
DX: R06.00 Dyspnea, unspecified (principal)
CPT/HCPCS: 71046

== ENCOUNTER 2020-12-22 21:02 | Inpatient (IN) | payer MEDICARE, MEDICAID ==
[2020-12-22] MEDS ORDERED: Morphine 2 MG/ML VIAL ONE (22:18)
[2020-12-22] MEDS ORDERED: Acetaminophen 325 MG TAB PO PRN (23:28)
[2020-12-22] MEDS ORDERED: Ondansetron ODT 4 MG TAB PO PRN (23:28)
[2020-12-22] MEDS ORDERED: Ondansetron PF 4 MG/2 ML Vial IVP PRN (23:28)
[2020-12-23] MEDS ORDERED: cefTRIAXone\\ROCEPHIN 1 GM VIAL ONE (02:18)
[2020-12-23] MEDS: cefTRIAXone\\ROCEPHIN 1 GM in Sodium Chloride 0.9% 100 ML IVPB SCH ×2 (02:23→23:29)
[2020-12-23 04:00] VITALS: BMI 19.3
[2020-12-23 06:25] LABS: #Lymphocytes 0.6 thou/uL (1.20-3.40); #Monocytes 0.4 thou/uL (0.11-0.59); #Neutrophils 7.6 thou/uL (1.40-6.50); %Eosinophils 0.2 % (0.0-10.0); %Lymphocytes 6.7 % (21.0-51.0); %Monocytes 4.9 % (0.0-10.0); %Neutrophils 88.2 % (42.0-75.0); Hemoglobin 10.9 g/dL (14.0-18.0); Mean Corpuscular HGB CONC 32.6 g/dL (32.0-36.0); Mean Corpuscular Hemoglobin 31.2 pg (27.0-31.0); Mean Corpuscular Volume 95.6 fL (78.0-98.0); Mean Platelet Volume 8.8 fL (7.4-10.4); Platelet Count 374 thou/uL (130-400); RBC Distribution Width 13.5 % (11.5-14.5); Red Blood Cell (RBC) Count 3.51 mill/uL (4.70-6.10); White Blood Cell (WBC) Count 8.6 thou/uL (4.8-10.8)
[2020-12-23 06:46] LABS: Anion Gap 12 mmol/L (10-20); BUN (Urea Nitrogen) 23 mg/dL (8.4-25.7); Calc. Creatinine Clearance 54 mL/min (70-130); Calcium 8.3 mg/dL (7.8-10.44); Carbon Dioxide 26 mmol/L (23-31); Chloride 103 mmol/L (98-107); Glucose 251 mg/dL (80-115); Potassium 4.8 mmol/L (3.5-5.1); Sodium 136 mmol/L (136-145)
[2020-12-23 08:51] LABS: SARS-CoV-2 PCR by NAA Not Detected (NotDetected)
[2020-12-23] MEDS ORDERED: Enoxaparin Sodium 40 MG/0.4 ML SYRINGE ONE (08:54)
[2020-12-23] MEDS ORDERED: methylPREDNISolone Sod Succ 40 MG VIAL ONE (08:54)
[2020-12-23] MEDS: Enoxaparin Sodium 40 MG/0.4 ML SYRINGE SC SCH (09:04)
[2020-12-23] MEDS: methylPREDNISolone Sod Succ 40 MG VIAL IVP SCH (09:05)
[2020-12-23 12:15] LABS: CKMB 7.1 ng/mL (0-6.6)
[2020-12-23] MEDS ORDERED: Aspirin 325 MG TAB PO SCH (13:45)
[2020-12-23] MEDS: guaiFENesin ER 600 MG TAB PO SCH (20:26)
[2020-12-23] MEDS: Atorvastatin Calcium 40 MG TAB PO SCH (20:26)
[2020-12-24 04:44] LABS: #Eosinphils 0.1 thou/uL (0.0-0.7); #Monocytes 1.5 thou/uL (0.11-0.59); #Neutrophils 11.5 thou/uL (1.40-6.50); %Basophils 0.2 % (0.0-1.0); %Eosinophils 0.5 % (0.0-10.0); %Lymphocytes 18.8 % (21.0-51.0); %Neutrophils 71.4 % (42.0-75.0); Hemoglobin 10.7 g/dL (14.0-18.0); Mean Corpuscular Hemoglobin 30.7 pg (27.0-31.0); Mean Corpuscular Volume 95.8 fL (78.0-98.0); Mean Platelet Volume 8.7 fL (7.4-10.4); Platelet Count 384 thou/uL (130-400); RBC Distribution Width 13.5 % (11.5-14.5); White Blood Cell (WBC) Count 16.1 thou/uL (4.8-10.8)
[2020-12-24 05:09] LABS: Anion Gap 12 mmol/L (10-20); BUN (Urea Nitrogen) 18 mg/dL (8.4-25.7); Calc. Creatinine Clearance 58 mL/min (70-130); Calcium 8.7 mg/dL (7.8-10.44); Carbon Dioxide 25 mmol/L (23-31); Chloride 104 mmol/L (98-107); Glucose 98 mg/dL (80-115); Potassium 4.1 mmol/L (3.5-5.1); Sodium 137 mmol/L (136-145)
[2020-12-24] MEDS: guaiFENesin ER 600 MG TAB PO SCH ×2 (09:46→20:50)
[2020-12-24] MEDS: Aspirin 81 mg Enteric Coated Tablet PO SCH (09:46)
[2020-12-24] MEDS: Enoxaparin Sodium 40 MG/0.4 ML SYRINGE SC SCH (09:46)
[2020-12-24] MEDS: methylPREDNISolone Sod Succ 40 MG VIAL IVP SCH (09:46)
[2020-12-24] MEDS ORDERED: Non-Formulary Item 1 EACH (Fluticasone Propionate [Flonase Allergy Relief] 9.9 ML Bottle) EA NARE PRN (12:13)
[2020-12-24] MEDS ORDERED: Fluticasone Propionate Nasal Spray 16 gm Bottle NASAL PRN (12:17)
[2020-12-24 13:52] LABS: CKMB 3.3 ng/mL (0-6.6)
[2020-12-24] MEDS: Atorvastatin Calcium 40 MG TAB PO SCH (20:49)
[2020-12-24] MEDS: Lisinopril 20 MG TAB PO SCH (20:49)
[2020-12-24] MEDS: cefTRIAXone\\ROCEPHIN 1 GM in Sodium Chloride 0.9% 100 ML IVPB SCH (22:31)
[2020-12-25 07:26] LABS: #Basophils 0.1 thou/uL (0.0-0.2); #Eosinphils 0.2 thou/uL (0.0-0.7); #Lymphocytes 3.6 thou/uL (1.20-3.40); #Monocytes 1.4 thou/uL (0.11-0.59); #Neutrophils 8.7 thou/uL (1.40-6.50); %Basophils 0.4 % (0.0-1.0); %Eosinophils 1.6 % (0.0-10.0); %Lymphocytes 25.9 % (21.0-51.0); %Neutrophils 62.2 % (42.0-75.0); Mean Corpuscular HGB CONC 32.6 g/dL (32.0-36.0); Mean Platelet Volume 8.3 fL (7.4-10.4); Platelet Count 401 thou/uL (130-400); RBC Distribution Width 13.7 % (11.5-14.5); Red Blood Cell (RBC) Count 3.57 mill/uL (4.70-6.10); White Blood Cell (WBC) Count 13.9 thou/uL (4.8-10.8)
[2020-12-25 07:42] LABS: Anion Gap 10 mmol/L (10-20); BUN (Urea Nitrogen) 24 mg/dL (8.4-25.7); Calc. Creatinine Clearance 62 mL/min (70-130); Calcium 8.6 mg/dL (7.8-10.44); Carbon Dioxide 29 mmol/L (23-31); Chloride 103 mmol/L (98-107); Glucose 95 mg/dL (80-115); Potassium 4.4 mmol/L (3.5-5.1); Sodium 138 mmol/L (136-145)
[2020-12-25] MEDS ORDERED: Non-Formulary Item 1 EACH (Sertraline Hcl [Zoloft] 50 MG Tablet) PO SCH (09:00)
[2020-12-25] MEDS: Lisinopril 20 MG TAB PO SCH (10:00)
[2020-12-25] MEDS: Aspirin 81 mg Enteric Coated Tablet PO SCH (10:00)
[2020-12-25] MEDS: methylPREDNISolone Sod Succ 40 MG VIAL IVP SCH (10:01)
[2020-12-25] MEDS: Enoxaparin Sodium 40 MG/0.4 ML SYRINGE SC SCH (10:01)
[2020-12-25] MEDS: guaiFENesin ER 600 MG TAB PO SCH (10:04)
[2020-12-25 11:49] VITALS: BP 125/61; TEMP 97.4
== END 2020-12-25 15:51 | disposition home or self-care (01) | DRG 189 ==
LOC: ERS 21:02 → ERHOLD 21:25 → 2NO 12-23 12:32
PROVIDERS: ADMIT Student in an Organized Health Care Education/Training Program; ATTEND Internal Medicine
DX: J96.01 Acute respiratory failure with hypoxia (principal); I21.A1 Myocardial infarction type 2; J44.1 Chronic obstructive pulmonary disease with (acute) exacerbation; Z20.822 Contact with and (suspected) exposure to COVID-19; I10 Essential (primary) hypertension; F17.210 Nicotine dependence, cigarettes, uncomplicated; E78.5 Hyperlipidemia, unspecified; F41.9 Anxiety disorder, unspecified; Z93.0 Tracheostomy status; Z93.1 Gastrostomy status; Z90.49 Acquired absence of other specified parts of digestive tract; Z79.82 Long term (current) use of aspirin; Z79.51 Long term (current) use of inhaled steroids; Z79.52 Long term (current) use of systemic steroids; Z79.899 Other long term (current) drug therapy; I25.2 Old myocardial infarction
CPT/HCPCS: 36415; 80048; 82553; 84484; 85025; 87635; 94640; 96374; J0696; J1650; J2270; J2920; J3490; J7620; U0003; U0005

== ENCOUNTER 2021-01-13 01:14 | Inpatient (IN) | payer MEDICARE, MEDICAID ==
[2021-01-13] MEDS ORDERED: Ondansetron ODT 4 MG TAB PO PRN (04:56)
[2021-01-13] MEDS ORDERED: Acetaminophen 500 MG TAB PO PRN (04:56)
[2021-01-13] MEDS ORDERED: hydrALAZINE 20 MG/ML VIAL SLOW IVP PRN (04:56)
[2021-01-13] MEDS ORDERED: Ondansetron PF 4 MG/2 ML Vial IVP PRN (04:56)
[2021-01-13] MEDS ORDERED: Benzonatate 100 MG CAP PO PRN (04:56)
[2021-01-13 05:22] VITALS: BMI 17.7
[2021-01-13] MEDS ORDERED: predniSONE 20 MG TAB PO SCH (07:00)
[2021-01-13 08:56] LABS: #Basophils 0.1 thou/uL (0.0-0.2); #Lymphocytes 0.2 thou/uL (1.20-3.40); #Monocytes 0.1 thou/uL (0.11-0.59); #Neutrophils 9.1 thou/uL (1.40-6.50); %Eosinophils 0.1 % (0.0-10.0); %Lymphocytes 2.2 % (21.0-51.0); %Monocytes 0.6 % (0.0-10.0); %Neutrophils 96.1 % (42.0-75.0); Hemoglobin 11.7 g/dL (14.0-18.0); Mean Corpuscular HGB CONC 31.9 g/dL (32.0-36.0); Mean Corpuscular Hemoglobin 30.1 pg (27.0-31.0); Mean Corpuscular Volume 94.4 fL (78.0-98.0); Mean Platelet Volume 8.2 fL (7.4-10.4); Platelet Count 279 thou/uL (130-400); Red Blood Cell (RBC) Count 3.89 mill/uL (4.70-6.10); White Blood Cell (WBC) Count 9.4 thou/uL (4.8-10.8)
[2021-01-13 09:18] LABS: Anion Gap 14 mmol/L (10-20); BUN (Urea Nitrogen) 18 mg/dL (8.4-25.7); Calc. Creatinine Clearance 55 mL/min (70-130); Calcium 8.7 mg/dL (7.8-10.44); Carbon Dioxide 21 mmol/L (23-31); Chloride 110 mmol/L (98-107); Glucose 173 mg/dL (80-115); Potassium 4.9 mmol/L (3.5-5.1); Sodium 140 mmol/L (136-145)
[2021-01-13 09:55] LABS: SARS-CoV-2 PCR by NAA Not Detected (NotDetected)
[2021-01-13] MEDS: predniSONE 20 MG TAB PO SCH (10:00)
[2021-01-13] MEDS: Famotidine 20 MG TAB PO SCH ×2 (10:00→20:23)
[2021-01-13] MEDS: Aspirin 81 mg Enteric Coated Tablet PO SCH (10:00)
[2021-01-13] MEDS: Lisinopril 20 MG TAB PO SCH ×2 (10:00→20:23)
[2021-01-13] MEDS: Azithromycin 250 MG TAB PO SCH (10:11)
[2021-01-14] MEDS: Famotidine 20 MG TAB PO SCH ×2 (08:59→22:00)
[2021-01-14] MEDS: Aspirin 81 mg Enteric Coated Tablet PO SCH (08:59)
[2021-01-14] MEDS: Azithromycin 250 MG TAB PO SCH (08:59)
[2021-01-14] MEDS: predniSONE 20 MG TAB PO SCH (09:00)
[2021-01-14] MEDS: Lisinopril 20 MG TAB PO SCH ×2 (09:00→22:00)
[2021-01-15 08:32] VITALS: BP 143/71; TEMP 97.5
[2021-01-15] MEDS: Azithromycin 250 MG TAB PO SCH (08:36)
[2021-01-15] MEDS: Aspirin 81 mg Enteric Coated Tablet PO SCH (08:36)
[2021-01-15] MEDS: Lisinopril 20 MG TAB PO SCH (08:37)
[2021-01-15] MEDS: Famotidine 20 MG TAB PO SCH (08:37)
[2021-01-15] MEDS: predniSONE 20 MG TAB PO SCH (08:37)
[2021-01-15] MEDS ORDERED: Enoxaparin Sodium 40 MG/0.4 ML SYRINGE SC SCH (09:00)
== END 2021-01-15 12:28 | disposition home or self-care (01) | DRG 189 ==
LOC: ERS 01:14 → T4-A 03:19 → OBSVTOIN 01-14 12:58
PROVIDERS: ADMIT Family Medicine; ATTEND Family Medicine
DX: J96.01 Acute respiratory failure with hypoxia (principal); G93.41 Metabolic encephalopathy; E43 Unspecified severe protein-calorie malnutrition; J44.1 Chronic obstructive pulmonary disease with (acute) exacerbation; Z68.1 Body mass index [BMI] 19.9 or less, adult; I10 Essential (primary) hypertension; F17.210 Nicotine dependence, cigarettes, uncomplicated; Z79.82 Long term (current) use of aspirin; Z82.49 Family history of ischemic heart disease and other diseases of the circulatory system; Z90.49 Acquired absence of other specified parts of digestive tract
CPT/HCPCS: 36415; 80048; 85025; 87635; 94640; G0378; J1650; J7512; J7620; U0003; U0005

== ENCOUNTER 2021-02-07 02:25 | Inpatient (IN) | payer MEDICARE, MEDICAID ==
[2021-02-07] MEDS ORDERED: Magnesium 2 GM/50 ML BAG (IN WATER) ONE (02:31)
[2021-02-07] MEDS ORDERED: Ondansetron PF 4 MG/2 ML Vial ONE (02:45)
[2021-02-07 03:03] LABS: #Basophils 0.1 thou/uL (0.0-0.2); #Eosinphils 0.2 thou/uL (0.0-0.7); #Lymphocytes 2.2 thou/uL (1.20-3.40); #Monocytes 1.3 thou/uL (0.11-0.59); #Neutrophils 9.9 thou/uL (1.40-6.50); %Basophils 0.5 % (0.0-1.0); %Eosinophils 1.2 % (0.0-10.0); %Lymphocytes 16.4 % (21.0-51.0); %Monocytes 9.4 % (0.0-10.0); %Neutrophils 72.5 % (42.0-75.0); Hemoglobin 12.3 g/dL (14.0-18.0); Mean Corpuscular HGB CONC 32.4 g/dL (32.0-36.0); Mean Corpuscular Hemoglobin 29.7 pg (27.0-31.0); Mean Corpuscular Volume 91.7 fL (78.0-98.0); Mean Platelet Volume 8.8 fL (7.4-10.4); Platelet Count 419 thou/uL (130-400); RBC Distribution Width 14.4 % (11.5-14.5); Red Blood Cell (RBC) Count 4.15 mill/uL (4.70-6.10); White Blood Cell (WBC) Count 13.6 thou/uL (4.8-10.8)
[2021-02-07 03:26] LABS: ALT (SGPT) 15 U/L (8-55); AST (SGOT) 25 U/L (5-34); Albumin 4.1 g/dL (3.4-4.8); Alkaline Phosphatase 58 U/L (40-110); Anion Gap 15 mmol/L (10-20); BUN (Urea Nitrogen) 17 mg/dL (8.4-25.7); Bilirubin, Total 0.2 mg/dL (0.2-1.2); Calc. Creatinine Clearance 0 mL/min (70-130); Calcium 9.4 mg/dL (7.8-10.44); Carbon Dioxide 23 mmol/L (23-31); Chloride 103 mmol/L (98-107); Globulin 2.9 g/dL (2.4-3.5); Glucose 141 mg/dL (80-115); Sodium 136 mmol/L (136-145)
[2021-02-07 03:33] LABS: Actual Bicarbonate (HCO3a) 18.6 mEq/L (22-28); Analyzer IN Cardio ER; Base Excess (BEa) -8.3 mEq/L (-2.0 to +3.0); CO2 Tension 43.6 mmHg (35.0-45.0); Calcium, Ionized (arterial) 1.18 mmol/L (1.12-1.30); Carboxyhemoglobin (COHb) 0.6 gm% (0.0-3.0); Hemoglobin (Hb) 11.5 g/dL (14.0-18.0); O2 Tension (PaO2), arterial 72.3 mmHg (> 80.0)
[2021-02-07 03:38] LABS: Puncture Site RRA; pH, Arterial 7.25 (7.35-7.45)
[2021-02-07 05:02] LABS: SARS-CoV-2 NAA Rapid Test Not Detected (NotDetected)
[2021-02-07] MEDS ORDERED: GUAIFENESIN SF SOLN 200 MG/10 ML UDCUP PO PRN (05:13)
[2021-02-07] MEDS ORDERED: hydrALAZINE 20 MG/ML VIAL SLOW IVP PRN (05:13)
[2021-02-07] MEDS ORDERED: Bisacodyl 5 MG TAB PO PRN (05:14)
[2021-02-07] MEDS ORDERED: HYDROcodone/Acetaminophen 5/325 mg Tablet PO PRN (05:14)
[2021-02-07] MEDS ORDERED: Ondansetron PF 4 MG/2 ML Vial IVP PRN (05:14)
[2021-02-07] MEDS ORDERED: Ipratropium Bromide 2.5 ml Neb NEB PRN (05:14)
[2021-02-07] MEDS ORDERED: Potassium Chloride 10 MEQ in Dextrose 5%-Lactated Ringers 1,000 ML IV SCH (05:15)
[2021-02-07] MEDS ORDERED: methylPREDNISolone Sod Succ/PF 125 MG/2 ML VIAL IVP SCH (06:00)
[2021-02-07 06:20] LABS: Troponin I Less than 0.010 ng/mL (< 0.028)
[2021-02-07] MEDS: Nicotine 21 MG PATCH TD SCH (09:02)
[2021-02-07] MEDS: guaiFENesin ER 600 MG TAB PO SCH ×2 (09:02→20:56)
[2021-02-07] MEDS: Lisinopril 20 MG TAB PO SCH ×2 (09:03→20:57)
[2021-02-07] MEDS: Famotidine 20 MG TAB PO SCH (09:03)
[2021-02-07] MEDS: Enoxaparin Sodium 40 MG/0.4 ML SYRINGE SC SCH (09:03)
[2021-02-07 09:36] LABS: Troponin I 0.013 ng/mL (< 0.028)
[2021-02-07] MEDS ORDERED: Iopamidol-370 76% 500 ML 1 ML ONE (10:57)
[2021-02-07] MEDS: Cefepime 1 GM in Sodium Chloride 0.9% 100 ML IVPB SCH ×2 (11:49→20:57)
[2021-02-07] MEDS: methylPREDNISolone Sod Succ 40 MG VIAL IVP SCH ×2 (11:50→17:19)
[2021-02-07] MEDS: Atorvastatin Calcium 10 MG TAB PO SCH (20:56)
[2021-02-08] MEDS: methylPREDNISolone Sod Succ 40 MG VIAL IVP SCH ×4 (00:48→18:39)
[2021-02-08] MEDS: Nicotine 21 MG PATCH TD SCH (05:22)
[2021-02-08] MEDS ORDERED: VANCOMYCIN 1.25 GM/250 ML BAG IVPB SCH (06:15)
[2021-02-08 06:50] LABS: Hemoglobin 9.9 g/dL (14.0-18.0); Mean Corpuscular HGB CONC 32.1 g/dL (32.0-36.0); Mean Corpuscular Hemoglobin 29.4 pg (27.0-31.0); Mean Corpuscular Volume 91.7 fL (78.0-98.0); Mean Platelet Volume 8.8 fL (7.4-10.4); Platelet Count 369 thou/uL (130-400); RBC Distribution Width 14.5 % (11.5-14.5); Red Blood Cell (RBC) Count 3.37 mill/uL (4.70-6.10)
[2021-02-08 06:55] LABS: Band 19 % (5-11); Lymphocytes 6 % (21-51); MDiff Complete? YES; Monocytes 2 % (0-10); Neutrophil 73 % (42-75)
[2021-02-08 07:01] LABS: ALT (SGPT) 12 U/L (8-55); AST (SGOT) 13 U/L (5-34); Albumin 3.7 g/dL (3.4-4.8); Alkaline Phosphatase 49 U/L (40-110); Anion Gap 15 mmol/L (10-20); BUN (Urea Nitrogen) 25 mg/dL (8.4-25.7); Bilirubin, Total 0.2 mg/dL (0.2-1.2); Calc. Creatinine Clearance 39 mL/min (70-130); Calcium 9.6 mg/dL (7.8-10.44); Carbon Dioxide 23 mmol/L (23-31); Chloride 103 mmol/L (98-107); Globulin 2.3 g/dL (2.4-3.5); Glucose 174 mg/dL (80-115); Sodium 136 mmol/L (136-145)
[2021-02-08] MEDS: Famotidine 20 MG TAB PO SCH (08:22)
[2021-02-08] MEDS: Lisinopril 20 MG TAB PO SCH ×2 (08:23→21:01)
[2021-02-08] MEDS: Cefepime 1 GM in Sodium Chloride 0.9% 100 ML IVPB SCH ×2 (08:24→21:00)
[2021-02-08] MEDS: Enoxaparin Sodium 40 MG/0.4 ML SYRINGE SC SCH (08:25)
[2021-02-08] MEDS: guaiFENesin ER 600 MG TAB PO SCH ×2 (08:37→21:01)
[2021-02-08] MEDS ORDERED: Communication Order-Pharmacy FS SCH (09:30)
[2021-02-08] MEDS ORDERED: Iopamidol 370 76% 100 ML VIAL ONE (10:44)
[2021-02-08] MEDS: VANCOMYCIN 1.25 GM/250 ML BAG 1.25 GM in Premix Bag 1 BAG IVPB SCH ×2 (10:45→11:40)
[2021-02-08 11:58] VITALS: BMI 16.5
[2021-02-08] MEDS ORDERED: Lidocaine 1% (PF) 30 ML VIAL ONE (12:45)
[2021-02-08] MEDS ORDERED: Midazolam HCl 2 mg/2 ml Vial ONE (13:35)
[2021-02-08] MEDS ORDERED: Sodium Chloride 0.9% 200 ML IV PRN (13:54)
[2021-02-08] MEDS ORDERED: Nitroglycerin 0.4 MG TAB (25 Tab Bottle) SL PRN (13:54)
[2021-02-08] MEDS ORDERED: Acetaminophen/Codeine 30-300mg Tablet PO PRN ×2 (13:54)
[2021-02-08] MEDS: Atorvastatin Calcium 10 MG TAB PO SCH (21:00)
[2021-02-09] MEDS: methylPREDNISolone Sod Succ 40 MG VIAL IVP SCH ×3 (00:13→12:13)
[2021-02-09] MEDS: Nicotine 21 MG PATCH TD SCH (06:09)
[2021-02-09] MEDS: Cefepime 1 GM in Sodium Chloride 0.9% 100 ML IVPB SCH (08:33)
[2021-02-09] MEDS: Lisinopril 20 MG TAB PO SCH (08:35)
[2021-02-09] MEDS: Famotidine 20 MG TAB PO SCH (08:36)
[2021-02-09] MEDS: guaiFENesin ER 600 MG TAB PO SCH (08:36)
[2021-02-09] MEDS ORDERED: Aspirin 81 mg Enteric Coated Tablet PO SCH (09:00)
[2021-02-09] MEDS ORDERED: Lisinopril 20 MG TAB PO SCH (09:00)
[2021-02-09 13:16] VITALS: BP 110/56; TEMP 97.8
== END 2021-02-09 13:02 | disposition home or self-care (01) | DRG 189 ==
LOC: ERS 02:25 → IMCU/EMU 04:35 → T4-B 14:05
PROVIDERS: ADMIT Internal Medicine; ATTEND Internal Medicine
PROC: 5A09357 Assistance with Respiratory Ventilation, Less than 24 Consecutive Hours, Continuous Positive Airway Pressure (ICD-10-PCS; 2021-02-07)
PROC: 4A023N7 Measurement of Cardiac Sampling and Pressure, Left Heart, Percutaneous Approach (ICD-10-PCS; principal; 2021-02-08)
PROC: B2111ZZ Fluoroscopy of Multiple Coronary Arteries using Low Osmolar Contrast (ICD-10-PCS; 2021-02-08)
PROC: B2151ZZ Fluoroscopy of Left Heart using Low Osmolar Contrast (ICD-10-PCS; 2021-02-08)
DX: J96.02 Acute respiratory failure with hypercapnia (principal); J44.1 Chronic obstructive pulmonary disease with (acute) exacerbation; E44.0 Moderate protein-calorie malnutrition; E87.2 Acidosis; Z68.1 Body mass index [BMI] 19.9 or less, adult; Z20.822 Contact with and (suspected) exposure to COVID-19; I10 Essential (primary) hypertension; I25.10 Atherosclerotic heart disease of native coronary artery without angina pectoris; F17.200 Nicotine dependence, unspecified, uncomplicated; I16.0 Hypertensive urgency; R07.9 Chest pain, unspecified; Z93.0 Tracheostomy status; Z99.81 Dependence on supplemental oxygen; Z79.82 Long term (current) use of aspirin; Z79.51 Long term (current) use of inhaled steroids; Z79.52 Long term (current) use of systemic steroids; Z79.899 Other long term (current) drug therapy; Z90.49 Acquired absence of other specified parts of digestive tract; Z93.1 Gastrostomy status; I25.2 Old myocardial infarction
CPT/HCPCS: 36415; 36600; 71045; 71275; 80053; 82805; 84484; 85007; 85025; 85027; 87040; 87070; 87077; 87149; 87205; 93005; 93458; 94640; 94660; 96365; 99152; 99153; J0692; J1650; J2001; J2250; J2405; J2920; J2930; J3370; J3475; J3480; J3490; J7620; Q9967; U0002

== ENCOUNTER 2021-02-13 15:25 | Inpatient (IN) | payer MEDICARE, MEDICAID ==
[2021-02-13] MEDS ORDERED: Albuterol Sulfate 2.5 mg/3 ml Neb ONE (15:36)
[2021-02-13] MEDS ORDERED: Albuterol Sulfate 2.5 mg/0.5 ml Neb ONE (15:36)
[2021-02-13] MEDS ORDERED: Magnesium 2 GM/50 ML BAG (IN WATER) ONE (15:42)
[2021-02-13] MEDS ORDERED: methylPREDNISolone Sod Succ/PF 125 MG/2 ML VIAL ONE (15:42)
[2021-02-13 16:26] LABS: Hemoglobin 11.3 g/dL (14.0-18.0); Mean Corpuscular HGB CONC 30.4 g/dL (32.0-36.0); Mean Corpuscular Hemoglobin 27.6 pg (27.0-31.0); Mean Corpuscular Volume 90.6 fL (78.0-98.0); Mean Platelet Volume 9.2 fL (7.4-10.4); Platelet Count 220 thou/uL (130-400); RBC Distribution Width 15.6 % (11.5-14.5); Red Blood Cell (RBC) Count 4.11 mill/uL (4.70-6.10); White Blood Cell (WBC) Count Less than 0.1 thou/uL (4.8-10.8)
[2021-02-13 16:34] LABS: Acetaminophen Less than 6.0 mcg/mL (10.0-30.0); Alcohol Less than 10 mg/dL (Less than 10); Magnesium 2.1 mg/dL (1.6-2.6); Salicylate Less than 8.0 mg/dL (15.0-30.0)
[2021-02-13 16:38] LABS: SARS-CoV-2 NAA Rapid Test Not Detected (NotDetected)
[2021-02-13 16:40] LABS: ALT (SGPT) 26 U/L (8-55); AST (SGOT) 22 U/L (5-34); Albumin 4.3 g/dL (3.4-4.8); Alkaline Phosphatase 59 U/L (40-110); Anion Gap 19 mmol/L (10-20); BUN (Urea Nitrogen) 22 mg/dL (8.4-25.7); Bilirubin, Total 0.4 mg/dL (0.2-1.2); Calc. Creatinine Clearance 0 mL/min (70-130); Calcium 9.6 mg/dL (7.8-10.44); Carbon Dioxide 24 mmol/L (23-31); Chloride 99 mmol/L (98-107); Globulin 2.8 g/dL (2.4-3.5); Glucose 100 mg/dL (80-115); Potassium 4.5 mmol/L (3.5-5.1); Protein, Total 7.1 g/dL (5.8-8.1); Sodium 137 mmol/L (136-145)
[2021-02-13 16:55] LABS: Amphetamine Not Detected (NotDetected); Barbiturates Screen Not Detected (NotDetected); Benzodiazepine Screen Not Detected (NotDetected); Cocaine Metabolite Screen Not Detected (NotDetected); Medtox Control Line Valid? VALID (VALID); Medtox Reader # READER 1; Methadone Not Detected (NotDetected); Methamphetamine Not Detected (NotDetected); Opiate Screen Not Detected (NotDetected); Oxycodone Screen Not Detected (NotDetected); Phencyclidine (PCP) Not Detected (NotDetected); THC/Cannabinoid Screen Not Detected (NotDetected); Tricyclic Screen Not Detected (NotDetected)
[2021-02-13 21:04] LABS: Lactic Acid 2.3 mmol/L (0.5-2.2)
[2021-02-13 21:42] LABS: Band 10 % (5-11); Hemoglobin 11.3 g/dL (14.0-18.0); Lymphocytes 4 % (21-51); MDiff Complete? YES; Mean Corpuscular HGB CONC 33.9 g/dL (32.0-36.0); Mean Corpuscular Hemoglobin 30.7 pg (27.0-31.0); Mean Corpuscular Volume 90.5 fL (78.0-98.0); Mean Platelet Volume 8.4 fL (7.4-10.4); Neutrophil 86 % (42-75); Platelet Count 320 thou/uL (130-400); RBC Distribution Width 15.3 % (11.5-14.5); Red Blood Cell (RBC) Count 3.69 mill/uL (4.70-6.10); White Blood Cell (WBC) Count 20.8 thou/uL (4.8-10.8)
[2021-02-13] MEDS: methylPREDNISolone Sod Succ 40 MG VIAL IVP SCH (23:18)
[2021-02-13 23:25] VITALS: BMI 16.1
[2021-02-14 04:08] LABS: Anion Gap 12 mmol/L (10-20); BUN (Urea Nitrogen) 35 mg/dL (8.4-25.7); Calc. Creatinine Clearance 36 mL/min (70-130); Calcium 8.6 mg/dL (7.8-10.44); Carbon Dioxide 27 mmol/L (23-31); Chloride 101 mmol/L (98-107); Glucose 159 mg/dL (80-115); Potassium 5.3 mmol/L (3.5-5.1); Sodium 135 mmol/L (136-145)
[2021-02-14] MEDS: methylPREDNISolone Sod Succ 40 MG VIAL IVP SCH ×4 (04:29→22:05)
[2021-02-14 05:36] LABS: Band 11 % (5-11); Eosinophils 1 % (0-10); Hemoglobin 10.6 g/dL (14.0-18.0); Lymphocytes 3 % (21-51); MDiff Complete? YES; Mean Corpuscular HGB CONC 33.3 g/dL (32.0-36.0); Mean Corpuscular Hemoglobin 30.4 pg (27.0-31.0); Mean Corpuscular Volume 91.3 fL (78.0-98.0); Mean Platelet Volume 8.7 fL (7.4-10.4); Monocytes 1 % (0-10); Neutrophil 84 % (42-75); Platelet Count 289 thou/uL (130-400); RBC Distribution Width 15.1 % (11.5-14.5); Red Blood Cell (RBC) Count 3.48 mill/uL (4.70-6.10)
[2021-02-14] MEDS ORDERED: Sodium Chloride 0.9% 500 ML IV SCH (07:30)
[2021-02-14] MEDS ORDERED: Albuterol Sulfate 2.5 mg/3 ml Neb EZPAP PRN (11:20)
[2021-02-14] MEDS ORDERED: guaiFENesin ER 600 MG TAB PO SCH (12:00)
[2021-02-14] MEDS ORDERED: Doxycycline 100 MG CAP PO SCH (12:00)
[2021-02-14] MEDS ORDERED: Aspirin 81 mg Enteric Coated Tablet PO SCH (12:00)
[2021-02-14] MEDS: Nicotine 14 MG PATCH TD SCH (13:17)
[2021-02-14 15:36] VITALS: BP 138/67
[2021-02-14] MEDS ORDERED: Atorvastatin Calcium 20 MG TAB PO SCH (21:00)
[2021-02-14] MEDS: Doxycycline 100 MG CAP PO SCH (22:05)
[2021-02-14] MEDS: guaiFENesin ER 600 MG TAB PO SCH (22:06)
[2021-02-15] MEDS: methylPREDNISolone Sod Succ 40 MG VIAL IVP SCH ×2 (03:18→10:52)
[2021-02-15] MEDS ORDERED: Aspirin 81 mg Enteric Coated Tablet PO SCH (09:00)
[2021-02-15 10:33] LABS: Actual Bicarbonate (HCO3a) 25.5 mEq/L (22-28); Base Excess (BEa) 0.8 mEq/L (-2.0 to +3.0); CO2 Tension 41.3 mmHg (35.0-45.0); Calcium, Ionized (arterial) 1.21 mmol/L (1.12-1.30); Carboxyhemoglobin (COHb) 0.3 gm% (0.0-3.0); Hemoglobin (Hb) 10.3 g/dL (14.0-18.0); O2 Tension (PaO2), arterial 78.9 mmHg (> 80.0); Potassium - ABG Lab 4.19 mmol/L (3.70-5.30); pH, Arterial 7.41 (7.35-7.45)
[2021-02-15 10:34] LABS: ALV-art Gradient 69.115 mmHg (0-20)
[2021-02-15] MEDS: guaiFENesin ER 600 MG TAB PO SCH (10:52)
[2021-02-15] MEDS: Doxycycline 100 MG CAP PO SCH (10:52)
[2021-02-15] MEDS: Nicotine 14 MG PATCH TD SCH (11:01)
[2021-02-15 11:19] VITALS: TEMP 97.4
[2021-02-15 11:48] LABS: Lactic Acid 3.8 mmol/L (0.5-2.2)
[2021-02-15 11:53] LABS: Anion Gap 12 mmol/L (10-20); BUN (Urea Nitrogen) 31 mg/dL (8.4-25.7); Calc. Creatinine Clearance 44 mL/min (70-130); Calcium 9.6 mg/dL (7.8-10.44); Carbon Dioxide 27 mmol/L (23-31); Chloride 103 mmol/L (98-107); Glucose 188 mg/dL (80-115); Potassium 4.2 mmol/L (3.5-5.1); Sodium 138 mmol/L (136-145)
[2021-02-15 11:59] LABS: Band 2 % (5-11); Hemoglobin 11.3 g/dL (14.0-18.0); Lymphocytes 7 % (21-51); MDiff Complete? YES; Mean Corpuscular HGB CONC 31.7 g/dL (32.0-36.0); Mean Corpuscular Hemoglobin 29.5 pg (27.0-31.0); Mean Corpuscular Volume 92.8 fL (78.0-98.0); Mean Platelet Volume 8.6 fL (7.4-10.4); Monocytes 8 % (0-10); Neutrophil 83 % (42-75); Platelet Count 320 thou/uL (130-400); Platelet Morphology Comment Appears Adequate; Polychromasia SLIGHT = 2-3 cells (100X) (0-2/hpf); RBC Distribution Width 15.2 % (11.5-14.5); Red Blood Cell (RBC) Count 3.85 mill/uL (4.70-6.10); Schistocytes SLIGHT = 2-5 cells (100X) (0-1/hpf); White Blood Cell (WBC) Count 22.9 thou/uL (4.8-10.8)
== END 2021-02-15 13:28 | disposition home or self-care (01) | DRG 189 ==
LOC: ERS 15:25 → ERHOLD 17:33 → OBSVTOIN 18:52 → IMCU/EMU 19:55
PROVIDERS: ADMIT Internal Medicine; ATTEND Internal Medicine
PROC: 5A09357 Assistance with Respiratory Ventilation, Less than 24 Consecutive Hours, Continuous Positive Airway Pressure (ICD-10-PCS; principal; 2021-02-13)
DX: J96.01 Acute respiratory failure with hypoxia (principal); J44.1 Chronic obstructive pulmonary disease with (acute) exacerbation; R64 Cachexia; E44.0 Moderate protein-calorie malnutrition; E87.2 Acidosis; Z68.1 Body mass index [BMI] 19.9 or less, adult; Z20.822 Contact with and (suspected) exposure to COVID-19; I10 Essential (primary) hypertension; F17.210 Nicotine dependence, cigarettes, uncomplicated; G47.33 Obstructive sleep apnea (adult) (pediatric); D64.9 Anemia, unspecified; I25.10 Atherosclerotic heart disease of native coronary artery without angina pectoris; T44.7X5A Adverse effect of beta-adrenoreceptor antagonists, initial encounter; T38.0X5A Adverse effect of glucocorticoids and synthetic analogues, initial encounter; D72.829 Elevated white blood cell count, unspecified; E87.5 Hyperkalemia; Z93.0 Tracheostomy status; Z93.1 Gastrostomy status; Z90.49 Acquired absence of other specified parts of digestive tract; Z79.51 Long term (current) use of inhaled steroids; Z79.82 Long term (current) use of aspirin; Z79.899 Other long term (current) drug therapy; I25.2 Old myocardial infarction
CPT/HCPCS: 0240U; 36415; 71045; 80048; 80053; 80306; 80307; 82805; 83605; 83735; 83880; 84484; 85025; 87040; 87086; 93005; 94640; 94660; 94760; 96365; 96367; 96375; G0378; J1956; J2920; J2930; J3475; J7611; J7620

== ENCOUNTER 2021-03-18 08:13 | Observation (INO) | payer MEDICARE, MEDICAID ==
[2021-03-18 09:46] LABS: SARS-CoV-2 NAA Rapid Test Not Detected (NotDetected)
[2021-03-18] MEDS ORDERED: Acetaminophen 325 MG TAB PO PRN (11:41)
[2021-03-18] MEDS ORDERED: Ondansetron PF 4 MG/2 ML Vial IVP PRN (11:41)
[2021-03-18] MEDS ORDERED: Loratadine 10 MG TAB PO PRN (11:45)
[2021-03-18] MEDS ORDERED: Albuterol Sulfate 2.5 mg/3 ml Neb EZPAP PRN (11:48)
[2021-03-18] MEDS ORDERED: Loratadine 10 MG TAB PO SCH ×2 (11:49→12:15)
[2021-03-18] MEDS ORDERED: guaiFENesin ER 600 MG TAB PO SCH ×3 (11:49→21:00)
[2021-03-18] MEDS ORDERED: Doxycycline 100 MG CAP PO SCH ×2 (11:50→12:15)
[2021-03-18] MEDS ORDERED: methylPREDNISolone Sod Succ 40 MG VIAL IVP SCH (12:15)
[2021-03-18] MEDS ORDERED: Hydrochlorothiazide 25 MG TAB PO SCH (12:30)
[2021-03-18 15:10] VITALS: BMI 16.2
[2021-03-18] MEDS: Nicotine 14 MG PATCH TD SCH (16:15)
[2021-03-18] MEDS: Mometasone 100 MCG/Formoterol 5 MCG 120 PUFF INHALER INH SCH (19:11)
[2021-03-18] MEDS: Doxycycline 100 MG CAP PO SCH (20:50)
[2021-03-18] MEDS: GUAIFENESIN SF SOLN 200 MG/10 ML UDCUP PO SCH (20:51)
[2021-03-19] MEDS ORDERED: hydrALAZINE 20 MG/ML VIAL SLOW IVP PRN (01:14)
[2021-03-19] MEDS: GUAIFENESIN SF SOLN 200 MG/10 ML UDCUP PO SCH ×4 (01:27→12:13)
[2021-03-19] MEDS: Mometasone 100 MCG/Formoterol 5 MCG 120 PUFF INHALER INH SCH (06:19)
[2021-03-19 06:20] LABS: Hemoglobin 9.6 g/dL (14.0-18.0); Mean Corpuscular HGB CONC 32.3 g/dL (32.0-36.0); Mean Corpuscular Hemoglobin 29.9 pg (27.0-31.0); Mean Corpuscular Volume 92.6 fL (78.0-98.0); Mean Platelet Volume 8.2 fL (7.4-10.4); Platelet Count 372 thou/uL (130-400); RBC Distribution Width 16.8 % (11.5-14.5); White Blood Cell (WBC) Count 12.1 thou/uL (4.8-10.8)
[2021-03-19 06:54] LABS: Band 2 % (5-11); Hypochromia SLIGHT = 6-15 cells (100X) (0-5/hpf); Lymphocytes 17 % (21-51); MDiff Complete? YES; Monocytes 11 % (0-10); Neutrophil 70 % (42-75); Platelet Morphology Comment Appears Adequate
[2021-03-19 07:14] LABS: Anion Gap 11 mmol/L (10-20); BUN (Urea Nitrogen) 22 mg/dL (8.4-25.7); Calc. Creatinine Clearance 49 mL/min (70-130); Calcium 8.8 mg/dL (7.8-10.44); Carbon Dioxide 26 mmol/L (23-31); Chloride 106 mmol/L (98-107); Glucose 116 mg/dL (80-115); Potassium 4.1 mmol/L (3.5-5.1); Sodium 139 mmol/L (136-145)
[2021-03-19] MEDS ORDERED: predniSONE 20 MG TAB PO SCH (08:00)
[2021-03-19] MEDS: Doxycycline 100 MG CAP PO SCH (08:15)
[2021-03-19] MEDS ORDERED: Hydrochlorothiazide 25 MG TAB PO SCH (09:00)
[2021-03-19] MEDS ORDERED: Loratadine 10 MG TAB PO SCH (09:00)
[2021-03-19] MEDS ORDERED: Aspirin 81 mg Enteric Coated Tablet PO SCH (09:00)
[2021-03-19] MEDS: Nicotine 14 MG PATCH TD SCH (12:14)
[2021-03-19 12:58] VITALS: BP 163/78; TEMP 97.3
== END 2021-03-19 12:32 | disposition home or self-care (01) ==
LOC: ERS 08:13 → ERHOLD 10:55 → INTOOBSV 10:55 → T4-A 13:37
PROVIDERS: ADMIT Internal Medicine; ATTEND Internal Medicine
DX: J44.1 Chronic obstructive pulmonary disease with (acute) exacerbation (principal); R06.89 Other abnormalities of breathing; F17.210 Nicotine dependence, cigarettes, uncomplicated; I10 Essential (primary) hypertension; Z79.82 Long term (current) use of aspirin; Z79.899 Other long term (current) drug therapy; Z99.81 Dependence on supplemental oxygen; Z20.822 Contact with and (suspected) exposure to COVID-19
CPT/HCPCS: 0240U; 80048; 84484; 85025; 94640 ×5; 94664; 99285; 36415; 96374; 96375; G0378; J0360; J2920; J7512; J7620